=== PATIENT | female | born 1940 | race Caucasian/White ===

== ENCOUNTER → 2018-01-11 | Outpatient (CLI) | payer MEDICARE, SELFPAY ==
[~2018-01-11] MED LIST: ACET325 PO; ACET500 PO; ACETAMINOPHEN500 MG PO; ALBU3IS INH; ALBU90OI61 INH; ALLO300 PO; ALUM-MAG HYDRO360 ML PO; AMOCLA875 PO; ASPI81CH PO; ATEN50 PO; Aspir 8181 MG PO; BIMA.03OPS OU; BISA10S PR; BISA5EC PO; BUME2 PO; BUSP5 PO; Benadryl 50 mg50 MG PO; CALACE667G PO; CALC.25 PO; CEFP200 PO; CEPH500 PO; CHOL10002 PO; CIPR500 PO; CVS DISPOSABLE399 ML PR; CYAN500 PO; Cardizem CD 24240 MG PO; DIGO.25 PO; DILT120 PO; DILT120ER PO; DILTIAZEM 24HR240 MG PO; DOCU100 PO; ESCI10 PO; FAMO20 PO; FLUC150A PO; FLUSAL5005 INH; FLUT.05NI; FURO20 PO; FURO40 PO; Furosemide80 MG PO; GABA100 PO; GAVILAX17 GM PO; GLIP10 PO; GLIP5 PO; GUAI600T33 PO; HYDACE5 PO; Humalog100 UNIT/1; INSDET100 SC; INSLI100I; INSLIS75I SC; INSULANPEN SQ; IRON PO; K-TAB ER20 MEQ PO; Keflex500 MG PO; LATA.005SO BOTHEYES; LATA.005SO OD; LEVE500 PO; LEVO750 PO; LEVSOD50 PO; LISI5 PO; LORA.5 PO; LOSA25 PO; LOSA50 PO; LOSARTAN POTASS50 MG PO; LOVA40 PO; MAGNESIUM HYDROXIDE PO; METF500 PO; METF500C PO; METO10 PO; METO10SY PO; METO25 PO; METO25ER PO; METO50ER PO; METO5A PO; MINOIL PR; MIRALAX; MIRALAX17 GM PO; MIRT15 PO; MOM PO; MONT10T PO; MULVITMIND PO; Metoprolol Succ25 MG PO; Mucinex600 MG PO; NITR100 PO; Novolog Fl100 UNIT/1 SQ; OMEP20ER PO; OMEPRAZOLE MAGN20 MG PO; ONDA4 PO; Omeprazole20 M1 PO; POTCHL10ER PO; POTCHL20ER PO; PRED10 PO; PRED20; Prednisone20 MG PO; RENA-VITE PO; SACC250C PO; SENN187 PO; SPIR25 PO; SPIR50 PO; Synthroid50 MCG; TIMDOROPSO BOTHEYES; TIMO.25OPS OD; TIOT18 INH; TRAM50 PO; TRAZ50 PO; WARF1 PO; WARF2 PO; WARF3 PO; WARF4 PO; WARF5 PO; WARF6 PO; Xalatan2.5 ML BOTHEYES; Zantac150 MG PO; Zithromax250 MG PO; Zofran Odt8 MG SL
== END ==
LOC: LAB 13:03 → LAB SHORT 13:03
DX: R30.0 Dysuria (principal)
CPT/HCPCS: 87077; 87086; 87186

== ENCOUNTER 2018-11-05 17:21 | Observation (INO) | payer MEDICARE ==
[~2018-11-05] VITALS: Ht 165.1 cm; Wt 86.7 kg
[~2018-11-05 17:21] MED LIST changes: +Cosopt Plus10 ML BOTHEYES; -TIMDOROPSO BOTHEYES
[2018-11-05 18:01] LABS: Alanine Aminotransfer (ALT/SGP 13 U/L (12-78); Albumin, Blood 3.3 g/dL (3.4-5.0); Albumin/Globulin Ratio 0.8 (0.8-1.8); Alk Phos 79 U/L (50-136); Anion Gap 5 mmol/L (6-16); Aspartate Aminotrans (AST/SGOT 15 U/L (12-37); Bilirubin, Total 0.4 mg/dL (0.1-1.0); Blood Urea Nitrogen 10 mg/dL (8-24); Bun/Creatinine Ratio 13.2 (12.0-20.0); CO2, Blood 32 mmol/L (21-32); Chloride, Blood 102 mmol/L (98-108); Creatinine, Blood 0.76 mg/dL (0.40-1.00); Globulin, Blood 3.9 g/dL (2.2-4.0); Glomerular Filtration Rate >60 (60-); Glucose, Blood 223 mg/dL (70-99); Potassium, Blood 3.6 mmol/L (3.5-5.5); Sodium, Blood 139 mmol/L (136-145); Total Protein, Blood 7.2 g/dL (6.4-8.2); Troponin I <0.015 ng/mL (0.000-0.040)
[2018-11-05 18:05] LABS: BASOPHILS ABSOLUTE AUTO 0.03 K/mm3 (0.00-0.23); BASOPHILS PERCENT AUTO 1 % (0-2); EOSINOPHILS ABSOLUTE AUTO 0.12 K/mm3 (0.00-0.68); EOSINOPHILS PERCENT AUTO 2 % (0-6); Hematocrit 32.2 % (33.0-51.0); Hemoglobin 9.8 g/dL (11.5-16.0); IMMATURE GRAN ABSOLUTE AUTO 0.04 K/mm3 (0.00-0.10); IMMATURE GRAN PERCENT AUTO 1 % (0-1); LYMPHOCYTES ABSOLUTE AUTO 1.54 K/mm3 (0.84-5.20); LYMPHOCYTES PERCENT AUTO 26 % (21-46); MONOCYTES ABSOLUTE AUTO 0.42 K/mm3 (0.16-1.47); MONOCYTES PERCENT AUTO 7 % (4-13); Mean Corpuscular HGB 30.1 pg (26.0-34.0); Mean Corpuscular HGB Conc 30.4 g/dL (31.5-36.5); Mean Corpuscular Volume 99 fL (80-100); NEUTROPHILS ABSOLUTE AUTO 3.85 K/mm3 (1.96-9.15); NEUTROPHILS PERCENT AUTO 64 % (41-73); Platelet Count 245 K/mm3 (150-400); RDW Coefficient Variation 14.5 % (11.7-14.2); RDW Standard Deviation 52.1 fL (35.1-46.3); Red Blood Cell Count 3.26 M/mm3 (3.80-5.20)
[2018-11-05 20:36] LABS: International Normalized Ratio 2.03; Prothrombin Time Results 20.1 Sec (9.7-11.5)
--- NOTE | 2018-11-05 23:13 | NUR ---
PT ADMIT. PT WAS TRANSFERED TO THIS UNIT AT 2038. PT ADMIT WAS FOR SYNCOPE AND CHEST PAIN. PT DENIES CHEST PAIN AT THIS TIME BUT STATES THAT SHE FEELS TO WEAK TO ATTEMPT TO STAND AT ALL. PT STATED THAT SHE HAS RECENTLY LOST A VERY DEAR FRIEND AND HAS BEEN UNDER SEVERE STRESS AND GREAVING THE PAST FEW DAYS. TELE PLACED, AFIB W/PVCS IN THE 80'S PER ROOF SHINGLER. BP 138/63. NO EDEMA NOTED ON ASSESSMENT. L/S CLEAR T/O. PT HAS ORTHOPENA. BT PRESENT AND HYPERACITVE, ABD IS SOFT AND NONTENDER TO PALP. PT HAS CHRONIC HICKMAN DUE TO NEUROGENIC BLADDER/RETENTION, HICKMAN WAS CHANGED AND UA WILL BE SENT WHEN ABLE TO OBTAIN. PT HAS FREIND AT THE BEDSIDE, PT ORIENTED TO ROOM AND CALL LIGHT, CALL LIGHT IN REACH, BED IS LOCKED AND LOW, WILL CONTINUE TO MONITOR.
[2018-11-06 00:24] LABS: Source, Urine Voided
[2018-11-06 00:28] LABS: Bilirubin, Urine Neg (Neg); Blood, Urine 3+ (Neg); Glucose Qualitative, Urine Neg (Neg); Ketones, Urine Neg (Neg); Leukocyte Esterase, Urine 3+ (Neg); Nitrite, Urine Neg (Neg); Protein, Urine 2+ (Neg); Urobilinogen, Urine NORM (Normal)
[2018-11-06 00:31] LABS: Appearance, Urine Clear (Clear); Color, Urine Yellow (P-Yellow)
[2018-11-06 00:33] LABS: Bacteria Many /hpf; Red Blood Cells, Urine 0-2 /hpf (0-2); Squamous Epithelial Cells Mod /hpf (Few); White Blood Cells, Urine TNTC /hpf (0-5)
[2018-11-06 04:26] LABS: International Normalized Ratio 2.01; Prothrombin Time Results 19.9 Sec (9.7-11.5)
--- NOTE | 2018-11-06 05:34 | NUR ---
SHIFT SUMMARY. NO ACUTE CHANGES NOTED THIS SHIFT. PT DENIES ANY CHEST PAIN/PRESSURE, SOB OR N/V. PT'S VS HAVE BEEN STABLE T/O SHIFT. PT'S CHRONIC HICKMAN WAS CHANGED AND UA SENT (SEE LABS) UA IS POSITIVE, CULTURES PENDING. PT COMPLAINED OF SEVERE VAGINAL ITCHING, PROVIDER CALLED, ORDERS OBTAINED. PT STILL COMPLAINING OF SEVERE WEAKNESS. PT REQUIRES EXTENSIVE EDUCATION REGUARDING HICKMAN CATHETERS AND HOME CARE, DURING THE CATH CHANGE PT'S FRIEND AT THE BEDSIDE REQUESTED THAT THE PT'S LEG BAG FROM HOME NOT BE THROWN AWAY BUT RINSED OUT AND KEPT SO THE PT COULD USE IT AT HOME AFTER D/C. THIS RN THOROUGHLY EDUCATED PT AND PT'S FRIEND ABOUT THE IMPORTANCE OF KEEPING THE HICKMAN SYSTEM CLEAN POSSIBLE TO PREVENT CAUTI. UA WAS POSITIVE, WAITING ON CULTURES (SEE LABS). PT'S TROPONINS HAVE BEEN NEGATIVE T/O SHIFT, NO EKG CHANGES NOTED. CALL LIGHT IN REACH, BED IS LOCKED AND LOW, WILL CONTINUE TO MONITOR UNTIL REPORT IS GIVEN TO ONCOMING RN.
--- NOTE | 2018-11-06 09:15 | NUR ---
DEVICE INTERROGATION DONE PER ORDER. NORMAL FUNCTIONING SINGLE CHAMBER PACEMAKER. SDEQUATE BATTERY STATUS, STABLE LEAD IMPEDANCE. R WAVE 8.0mV. CAPTURE THRESHOLD 1.0v@.4ms.Classified Ad Clerk 14%. NO HIGH VENTRICULAR EPISODES NOTED. INFORMATION ON FRONT OF PATIENT RECORD.
--- NOTE | 2018-11-06 10:57 | NUR ---
Assumed Care Assumed care of pt at approx 0700. VSS. In no apparent sign of distress. ECHO being completed at bedside this AM. Pt denies any pain. A&Ox4. Repositions self. Calls appropriately. Denies any acute complaints at all except for some mild dizziness w/standing and weakness, which the pt states she feels is improving. HC staff called and will come to interrogate pacemaker once ECHO is complete. Pt currently resting in bed wtih call light within reach. Denies any further questions, complaints or requests at this time. Will continue to monitor.
--- NOTE | 2018-11-06 11:52 | NUR ---
Echocardiogram completed.
--- NOTE | 2018-11-06 18:35 | NUR ---
Shift Summary No acute changes since initial shift assessment. VSS. In no apparent sign of distress. Pt is A&Ox4. Denies any pain. Denies any acute complaints or events t/o the day. Pt did well working w/PT and OT today. Repositions self. Calls appropriately. Spoke with Dr. Kaufman today regarding pt metformin dose per pt request and was informed that we are holding metformin dose for potential procedure using contrast, but that procedure is not scheduled or planned at this time. No changes on tele today. No changes in mentation. Pt currently resting in bed with call light within reach. Denies any further questions, complaints or requests at this time. Will continue to monitor until report is given to blair ROBLEDO.
--- NOTE | 2018-11-06 23:18 | NUR ---
PM NOTE. ASSUMED CARE OF PT APROX 1900. PT IS A&Ox4 PLEASENT AND COOPERATIVE WITH CARE. PT DEINES CHEST PAIN/PRESSURE OR LIGHTHEADED DIZZINESS. TELE INTACT, AFIB W/OCCASIONAL PACER SPIKES W/PVCS. BP 99/51. NO EDEMA PRESENT. L/S CLEAR T/O PT ON 2 L NC PRN, THIS IS HER HOME DOSE WELL. BT PRESENT AND HYPERACTIVE, ABD IS SOFT AND NONTENDER TO PALP. CALL LIGHT IN REACH, BED LOCKED AND LOW, WILL CONITNUE TO MONITOR.
[2018-11-07 04:30] LABS: International Normalized Ratio 3.01; Prothrombin Time Results 29.1 Sec (9.7-11.5)
--- NOTE | 2018-11-07 06:07 | NUR ---
FIT SUMMARY. NO ACUTE CHANGES NOTED THIS SHIFT. PT DENIES ANY CHEST PAIN/PRESSURE, DIZZINESS/LIGHTHEADEDNESS. PT IS SCHEDULED TO HAVE A CARDIAC STRESS TEST TODAY, PT HAS BEEN NPO EXCEPT WATER SINCE MIDNIGHT. PT HAS BEEN VERY ANXIOUS ABOUT THIS STRESS TEST, CONCERNED THAT SHE WILL HAVE A HEARTATTACK DURING THIS PROCEDURE, THIS RN PROVIDED THERAPUTIC COMMUNICATION AND COMFORT ALONG WITH EDUCATION TO THE PT. PT HAS ONLY HAD 275MLS OUTPUT DRAINED FROM HICKMAN THIS SHIFT. PT'S LAST BP WAS 91/48, PT NOT SYMPTOMATIC. CALL LIGHT IN REACH, BED LOCKED AND LOW, WILL CONTINUE TO MONITOR UNTIL REPORT IS GIVEN TO ONCOMING RN.
--- NOTE | 2018-11-07 12:01 | NUR ---
PT DOWN TO NUC MED VIA WHEELCHAIR FOR STRESS TEST.
--- NOTE | 2018-11-07 17:48 | NUR ---
SHIFT SUMMARY PT MOSTLY SLEPT T/O SHIFT. ACTIVITY ENCOURAGED, HOWEVER PT STATES SHE IS "TRYING TO CATCH UP ON SLEEP". PT HAS GOTTEN UP TO CHAIR FOR MEALS AND HAS TOLERATED AMBULATING TO BATHROOM WELL WITH STANDBY ASSIST. VITAL SIGNS STABLE T/O SHIFT. PIV SL. PLAN FOR SECOND PORTION OF CARDIAC STRESS TEST TOMORROW. WILL CONTINUE TO MONITOR PT AND GIVE HANDOFF REPORT TO ONCOMING RN WHEN AVAILABLE.
[2018-11-08 04:12] LABS: International Normalized Ratio 3.5; Prothrombin Time Results 33.6 Sec (9.7-11.5)
--- NOTE | 2018-11-08 06:04 | NUR ---
SHIFT SUMMARY PT ALERT AND ORIENTED. VS STABLE. PT RESTED MOST OF SHIFT. CHRONIC HICKMAN PATENT AND DRAINING. NO CHANGES SINCE INITIAL ASSESSMENT. CALL LIGHT IN REACH. WILL REPORT TO ONCOMING RN.
--- NOTE | 2018-11-08 08:49 | NUR ---
NURSING PCU DAYSHIFT: Assumed care of pt at approx 0700. A/O, very pleasant and cooperative w/care. Denies any pain/discomfort this a.m. Skin is intact w/no breakdown noted. General weakness w/chronic neuropathy of LE's. Tele in place, NSR w/PVC's, BP stable, no noted edema, artificial valve and murmur auscultated, no c/o CP/pressure. L/S fairly cta t/o w/crackles present in LLL, denies dyspnea, O2 sat stable on RA, occ LANGUAGES AND LITERATURE INSTRUCTOR cough. Abd SNT, BT+, chronic FC in place. PIV x1, s/l. No s/s of acute distress at this time. Plan for second portion of stress test today, will hold beta phoebe. Seen by PMD, awaiting new d/o. Pt denies any current needs/questions. Currently OOB in chair watching TV, call light in reach, cont to monitor for any changes.
--- NOTE | 2018-11-08 18:07 | NUR ---
NURSING PCU DAYSHIFT SUMMARY: No significant changes noted t/o the shift. VS remained stable, cardiac and respiratory status unchanged. 2nd portion of stress test completed which pt tolerated well, no significant findings noted. Plan for discharge home tomorrow, pt verbalized understanding of plan of care, denies questions. Call light remains in reach, cont to monitor until rpt is given to NOC RN.
[2018-11-09 04:22] LABS: International Normalized Ratio 3.17; Prothrombin Time Results 30.6 Sec (9.7-11.5)
--- NOTE | 2018-11-09 06:24 | NUR ---
SHIFT SUMMARY ALERT AND ORIENTED. VS STABLE. PT RESTED MOST OF SHIFT. 02 SATS REMAINED ABOVE 92% ON RA. PT DENIES ANY CHEST PAIN OR DIZZINESS. PLAN TO DC TODAY. NO OTHER CHANGES SINCE INITIAL ASSESSMENT. CALL LIGHT IN REACH. WILL CONTINUE TO MONITOR AND REPORT TO ONCOMING RN.
== END 2018-11-09 12:45 | disposition home or self-care (01) ==
LOC: ER 17:21 → PCU 17:22 → ER 20:38 → PCU 20:44
PROVIDERS: Emergency Medicine; ADMIT Internal Medicine
DX: R07.9 Chest pain, unspecified (principal); R55 Syncope and collapse; I48.91 Unspecified atrial fibrillation; E11.9 Type 2 diabetes mellitus without complications; R30.0 Dysuria; I10 Essential (primary) hypertension; E03.9 Hypothyroidism, unspecified; G47.30 Sleep apnea, unspecified; Z79.01 Long term (current) use of anticoagulants; Z95.2 Presence of prosthetic heart valve; Z79.899 Other long term (current) drug therapy; Z88.5 Allergy status to narcotic agent
CPT/HCPCS: 36415; 71046; 78452; 80053; 81001; 82947; 84443; 84484; 85025; 85379; 85610; 87086; 93005; 93010; 93017; 93279; 93306; 96365; 96366; 97116; 97162; 97166; 97530; 97535; 99285-25; A9500; G0378; G8978; G8979; G8987; G8988; J0696; J0706; J2785

== ENCOUNTER 2018-11-21 02:53 | Day surgery (SDC) | payer MEDICARE, OTHER ==
--- NOTE | 2018-11-21 14:23 | NUR ---
12 FR. HICKMAN CATH PLACED PER PROTOCOL FOR VCUG PROCEDURE; TOLERATED WELL. CHERRY SORTER AT BEDSIDE AND CONTINUED CARE.
== END 2018-11-21 22:36 | disposition home or self-care (01) ==
LOC: ORD 02:53 → RAD 02:53 → LAB 02:53 → ORD 13:30 → RAD 14:00 → ORD 22:36
DX: N31.9 Neuromuscular dysfunction of bladder, unspecified (principal); Z79.01 Long term (current) use of anticoagulants; I48.0 Paroxysmal atrial fibrillation
CPT/HCPCS: 36416; 51600; 74455; 85610; Q9967

== ENCOUNTER 2018-12-22 15:16 | Emergency (ER) | payer MEDICARE, OTHER ==
[~2018-12-22] VITALS: Ht 165.1 cm; Wt 86.2 kg
[2018-12-22 15:56] LABS: BASOPHILS ABSOLUTE AUTO 0.04 K/mm3 (0.00-0.23); BASOPHILS PERCENT AUTO 1 % (0-2); EOSINOPHILS ABSOLUTE AUTO 0.12 K/mm3 (0.00-0.68); EOSINOPHILS PERCENT AUTO 2 % (0-6); Hematocrit 32.5 % (33.0-51.0); Hemoglobin 9.8 g/dL (11.5-16.0); IMMATURE GRAN ABSOLUTE AUTO 0.01 K/mm3 (0.00-0.10); IMMATURE GRAN PERCENT AUTO 0 % (0-1); LYMPHOCYTES PERCENT AUTO 26 % (21-46); MONOCYTES ABSOLUTE AUTO 0.42 K/mm3 (0.16-1.47); MONOCYTES PERCENT AUTO 7 % (4-13); Mean Corpuscular HGB 29.4 pg (26.0-34.0); Mean Corpuscular HGB Conc 30.2 g/dL (31.5-36.5); Mean Corpuscular Volume 98 fL (80-100); Mean Platelet Volume 10.3 fL (9.1-12.4); NEUTROPHILS ABSOLUTE AUTO 3.73 K/mm3 (1.96-9.15); NEUTROPHILS PERCENT AUTO 64 % (41-73); Platelet Count 240 K/mm3 (150-400); RDW Coefficient Variation 14.4 % (11.7-14.2); RDW Standard Deviation 51.4 fL (35.1-46.3); Red Blood Cell Count 3.33 M/mm3 (3.80-5.20); White Blood Cell Count 5.82 K/mm3 (4.00-11.30)
[2018-12-22 16:10] LABS: Alanine Aminotransfer (ALT/SGP 14 U/L (12-78); Albumin, Blood 3.4 g/dL (3.4-5.0); Albumin/Globulin Ratio 0.9 (0.8-1.8); Alk Phos 86 U/L (50-136); Anion Gap 4 mmol/L (6-16); Aspartate Aminotrans (AST/SGOT 13 U/L (12-37); Bilirubin, Total 0.6 mg/dL (0.1-1.0); Blood Urea Nitrogen 16 mg/dL (8-24); Bun/Creatinine Ratio 19.9 (12.0-20.0); CO2, Blood 28 mmol/L (21-32); Calcium, Blood 8.7 mg/dL (8.5-10.1); Chloride, Blood 105 mmol/L (98-108); Globulin, Blood 3.7 g/dL (2.2-4.0); Glomerular Filtration Rate >60 (60-); Glucose, Blood 231 mg/dL (70-99); Potassium, Blood 4.1 mmol/L (3.5-5.5); Sodium, Blood 137 mmol/L (136-145); Total Protein, Blood 7.1 g/dL (6.4-8.2)
[2018-12-22 16:15] LABS: International Normalized Ratio 1.92; Prothrombin Time Results 19.2 Sec (9.7-11.5)
[2018-12-22 16:41] LABS: Base Excess Venous 1.7 mmol/L; Bicarbonate Venous 25.6 mmol/L (24.0-30.0); PCO2 Venous 50.7 mmHg (38-42); PO2 Venous 161 mmHg (38-42); pH Blood Venous 7.34 (7.34-7.37)
[2018-12-22 17:30] LABS: Source, Urine Clean Catch
[2018-12-22 17:37] LABS: Appearance, Urine Cloudy (Clear); Bilirubin, Urine Neg (Neg); Blood, Urine 5+ (Neg); Color, Urine Yellow (P-Yellow); Glucose Qualitative, Urine 1+ (Neg); Ketones, Urine Neg (Neg); Leukocyte Esterase, Urine 3+ (Neg); Nitrite, Urine Neg (Neg); Protein, Urine 2+ (Neg); Urobilinogen, Urine NORM (Normal)
[2018-12-22 17:42] LABS: White Blood Cells, Urine TNTC /hpf (0-5)
[2018-12-22 17:44] LABS: Squamous Epithelial Cells Not Seen /hpf (Few)
[2018-12-22 17:45] LABS: Bacteria Rare /hpf; Yeast/Fungi Urine Few /hpf
[2018-12-22] MEDS ORDERED: CEPH500 PO (17:56)
== END 2018-12-22 18:05 | disposition home or self-care (01) ==
LOC: ER 15:16
PROVIDERS: Physician Assistant
DX: N39.0 Urinary tract infection, site not specified (principal); E11.9 Type 2 diabetes mellitus without complications; I10 Essential (primary) hypertension; I48.91 Unspecified atrial fibrillation; Z79.899 Other long term (current) drug therapy; Z79.4 Long term (current) use of insulin; Z79.01 Long term (current) use of anticoagulants
CPT/HCPCS: 36415; 51701; 80053; 81001; 82010; 82803; 82947; 85025; 85610; 87086; 93005; 93010; 99285-25

== ENCOUNTER → 2019-04-27 | Outpatient (CLI) | payer MEDICARE, SELFPAY ==
[~2019-04-27] MED LIST changes: -BUME2 PO; +Bumetanide2 MG PO; +Ferrous Glucon324 M1 PO; +Flonase 0.05% N16 GM; +Humalog100 UNIT/1 SC; +INSULANPEN SC; -METF500C PO; -Metoprolol Succ25 MG PO; +Metoprolol Tart25 MG PO; +Pyridium100 MG PO; -WARF2 PO
== END | disposition home or self-care (01) ==
LOC: LAB SHORT 09:54 → LAB UCHC 09:54
DX: R30.0 Dysuria (principal)
CPT/HCPCS: 87077; 87086; 87186

== ENCOUNTER → 2019-05-14 | Outpatient (CLI) | payer MEDICARE, SELFPAY | END | disposition home or self-care (01) | LOC: LAB UCHC 17:39 → LAB SHORT 17:39 | DX: N76.0 Acute vaginitis (principal) | CPT/HCPCS: 87070; 87077; 87186; 87205 ==

== ENCOUNTER → 2019-06-23 | Outpatient (CLI) | payer MEDICARE, OTHER ==
[2019-06-26 05:38] LABS: Stool Occult Bld Immuno 1 Negative (NEGATIVE); Stool Occult Bld Immuno 2 Negative (NEGATIVE)
== END | disposition home or self-care (01) ==
LOC: LAB SHORT 20:30 → LAB 20:30
PROVIDERS: Internal Medicine Gastroenterology
DX: D64.9 Anemia, unspecified (principal)
CPT/HCPCS: 82274

== ENCOUNTER → 2019-07-04 | Outpatient (CLI) | payer MEDICARE, OTHER | LOC: LAB 14:21 → LAB SHORT 14:21 | DX: R32 Unspecified urinary incontinence (principal) | CPT/HCPCS: 87077; 87086; 87186 ==

== ENCOUNTER 2019-08-10 17:11 | Emergency (ER) | payer MEDICARE, OTHER ==
[~2019-08-10] VITALS: Ht 165.1 cm; Wt 82.5 kg
[~2019-08-10 17:11] MED LIST changes: -Aspir 8181 MG PO; -Bumetanide2 MG PO; -Cosopt Plus10 ML BOTHEYES; -Ferrous Glucon324 M1 PO; -Flonase 0.05% N16 GM; -GABA100 PO; -Humalog100 UNIT/1 SC; -INSULANPEN SC; -K-TAB ER20 MEQ PO; -LOSARTAN POTASS50 MG PO; -Metoprolol Tart25 MG PO; -Pyridium100 MG PO; -Xalatan2.5 ML BOTHEYES
[2019-08-10 18:28] LABS: Source, Urine Clean Catch
[2019-08-10 18:32] LABS: Bilirubin, Urine Neg (Neg); Blood, Urine 5+ (Neg); Glucose Qualitative, Urine 2+ (Neg); Ketones, Urine Neg (Neg); Leukocyte Esterase, Urine 3+ (Neg); Nitrite, Urine Pos (Neg); Protein, Urine 3+ (Neg); Specific Gravity, Urine 1.015 (1.003-1.022); Urobilinogen, Urine NORM (Normal)
[2019-08-10 18:44] LABS: Appearance, Urine Cloudy (Clear); Color, Urine Yellow (P-Yellow)
[2019-08-10 18:47] LABS: Red Blood Cells, Urine 25-50 /hpf (0-2); White Blood Cells, Urine TNTC /hpf (0-5)
[2019-08-10 18:48] LABS: Bacteria Many /hpf; Squamous Epithelial Cells Mod /hpf (Few)
[2019-08-10 19:00] LABS: BASOPHILS ABSOLUTE AUTO 0.03 K/mm3 (0.00-0.23); BASOPHILS PERCENT AUTO 0 % (0-2); EOSINOPHILS ABSOLUTE AUTO 0.08 K/mm3 (0.00-0.68); EOSINOPHILS PERCENT AUTO 1 % (0-6); Hematocrit 33.5 % (33.0-51.0); Hemoglobin 10.5 g/dL (11.5-16.0); IMMATURE GRAN ABSOLUTE AUTO 0.02 K/mm3 (0.00-0.10); IMMATURE GRAN PERCENT AUTO 0 % (0-1); LYMPHOCYTES ABSOLUTE AUTO 1.41 K/mm3 (0.84-5.20); LYMPHOCYTES PERCENT AUTO 19 % (21-46); MONOCYTES ABSOLUTE AUTO 0.72 K/mm3 (0.16-1.47); MONOCYTES PERCENT AUTO 10 % (4-13); Mean Corpuscular HGB 28.8 pg (26.0-34.0); Mean Corpuscular HGB Conc 31.3 g/dL (31.5-36.5); Mean Corpuscular Volume 92 fL (80-100); Mean Platelet Volume 10.3 fL (9.1-12.4); NEUTROPHILS ABSOLUTE AUTO 5.28 K/mm3 (1.96-9.15); NEUTROPHILS PERCENT AUTO 70 % (41-73); Platelet Count 291 K/mm3 (150-400); RDW Standard Deviation 47.7 fL (35.1-46.3); Red Blood Cell Count 3.64 M/mm3 (3.80-5.20); White Blood Cell Count 7.54 K/mm3 (4.00-11.30)
[2019-08-10 19:32] LABS: Albumin, Blood 3.5 g/dL (3.4-5.0); Albumin/Globulin Ratio 0.9 (0.8-1.8); Bilirubin, Total 0.5 mg/dL (0.1-1.0); Bun/Creatinine Ratio 22.1 (12.0-20.0); Calcium, Blood 8.7 mg/dL (8.5-10.1); Creatinine, Blood 1.04 mg/dL (0.40-1.00); Globulin, Blood 3.9 g/dL (2.2-4.0); Potassium, Blood 3.1 mmol/L (3.5-5.5); Total Protein, Blood 7.4 g/dL (6.4-8.2)
[2019-08-10] MEDS ORDERED: Pyridium100 MG PO (21:51)
[2019-08-10] MEDS ORDERED: CEFP200 PO (21:51)
== END 2019-08-10 22:20 | disposition home or self-care (01) ==
LOC: ER 17:11
PROVIDERS: Physician Assistant
DX: N30.90 Cystitis, unspecified without hematuria (principal); K80.20 Calculus of gallbladder without cholecystitis without obstruction; N20.0 Calculus of kidney; E11.9 Type 2 diabetes mellitus without complications; I10 Essential (primary) hypertension; E03.9 Hypothyroidism, unspecified; G47.30 Sleep apnea, unspecified; Z88.5 Allergy status to narcotic agent; Z91.018 Allergy to other foods; Z79.899 Other long term (current) drug therapy; Z79.4 Long term (current) use of insulin; Z79.01 Long term (current) use of anticoagulants; Z79.82 Long term (current) use of aspirin
CPT/HCPCS: 36415; 74176; 80053; 81001; 85025; 87077; 87086; 87186; 99284-25

== ENCOUNTER → 2019-08-10 | Outpatient (CLI) | payer MEDICARE, OTHER | END | disposition home or self-care (01) | LOC: LAB SHORT 10:00 → LAB 10:00 | DX: N39.0 Urinary tract infection, site not specified (principal) | CPT/HCPCS: 87086 ==

== ENCOUNTER → 2019-08-17 | Outpatient (CLI) | payer MEDICARE, OTHER ==
[~2019-08-17] MED LIST changes: +Aspir 8181 MG PO; +Bumetanide2 MG PO; +Cosopt Plus10 ML BOTHEYES; +Ferrous Glucon324 M1 PO; +Flonase 0.05% N16 GM; +GABA100 PO; +Humalog100 UNIT/1 SC; +INSULANPEN SC; +K-TAB ER20 MEQ PO; +LOSARTAN POTASS50 MG PO; +Metoprolol Tart25 MG PO; +Pyridium100 MG PO; +Xalatan2.5 ML BOTHEYES
== END | disposition home or self-care (01) ==
LOC: LAB 16:40 → LAB SHORT 16:40
DX: M10.9 Gout, unspecified (principal)
CPT/HCPCS: 84550

== ENCOUNTER 2019-08-27 14:06 | Inpatient (IN) | payer MEDICARE, OTHER ==
[~2019-08-27] VITALS: Ht 165.1 cm; Wt 67.7 kg
[~2019-08-27 14:06] MED LIST changes: -Aspir 8181 MG PO; -Bumetanide2 MG PO; -Cosopt Plus10 ML BOTHEYES; -Ferrous Glucon324 M1 PO; -Flonase 0.05% N16 GM; -GABA100 PO; -Humalog100 UNIT/1 SC; -INSULANPEN SC; -K-TAB ER20 MEQ PO; -LOSARTAN POTASS50 MG PO; -Metoprolol Tart25 MG PO; -Xalatan2.5 ML BOTHEYES
[2019-08-27 18:20] LABS: BASOPHILS ABSOLUTE AUTO 0.05 K/mm3 (0.00-0.23); BASOPHILS PERCENT AUTO 1 % (0-2); EOSINOPHILS ABSOLUTE AUTO 0.07 K/mm3 (0.00-0.68); EOSINOPHILS PERCENT AUTO 1 % (0-6); Hematocrit 34.2 % (33.0-51.0); Hemoglobin 10.6 g/dL (11.5-16.0); IMMATURE GRAN ABSOLUTE AUTO 0.02 K/mm3 (0.00-0.10); IMMATURE GRAN PERCENT AUTO 0 % (0-1); LYMPHOCYTES ABSOLUTE AUTO 1.88 K/mm3 (0.84-5.20); LYMPHOCYTES PERCENT AUTO 20 % (21-46); MONOCYTES ABSOLUTE AUTO 0.63 K/mm3 (0.16-1.47); MONOCYTES PERCENT AUTO 7 % (4-13); Mean Corpuscular HGB 29.5 pg (26.0-34.0); Mean Corpuscular Volume 95 fL (80-100); NEUTROPHILS ABSOLUTE AUTO 6.75 K/mm3 (1.96-9.15); NEUTROPHILS PERCENT AUTO 72 % (41-73); Platelet Count 264 K/mm3 (150-400); RDW Standard Deviation 49.5 fL (35.1-46.3); Red Blood Cell Count 3.59 M/mm3 (3.80-5.20)
[2019-08-27] MEDS ORDERED: METF500 PO (18:33)
[2019-08-27] MEDS ORDERED: GABA100 PO (18:33)
[2019-08-27] MEDS ORDERED: ALLO300 PO (18:33)
[2019-08-27] MEDS ORDERED: LOSARTAN POTASS50 MG PO (18:33)
[2019-08-27] MEDS ORDERED: METO25 PO (18:34)
[2019-08-27] MEDS ORDERED: Aspir 8181 MG PO (18:35)
[2019-08-27] MEDS ORDERED: Ferrous Glucon324 M1 PO (18:36)
[2019-08-27] MEDS ORDERED: Xalatan2.5 ML BOTHEYES (18:37)
[2019-08-27] MEDS ORDERED: LOVA40 PO (18:37)
[2019-08-27] MEDS ORDERED: LEVSOD50 PO (18:38)
[2019-08-27] MEDS ORDERED: K-TAB ER20 MEQ PO (18:39)
[2019-08-27] MEDS ORDERED: Bumetanide2 MG PO (18:39)
[2019-08-27 18:44] LABS: Prothrombin Time Results 41.2 Sec (9.7-11.5)
[2019-08-27 18:54] LABS: International Normalized Ratio 4.45
[2019-08-27] MEDS ORDERED: Humalog100 UNIT/1 SC (18:58)
[2019-08-27] MEDS ORDERED: INSULANPEN SC (18:58)
[2019-08-27] MEDS ORDERED: Flonase 0.05% N16 GM (18:59)
[2019-08-27] MEDS ORDERED: WARF3 PO (19:03)
[2019-08-27] MEDS ORDERED: Cosopt Plus10 ML BOTHEYES (19:10)
[2019-08-27 19:17] LABS: Albumin, Blood 3.7 g/dL (3.4-5.0); Albumin/Globulin Ratio 0.9 (0.8-1.8); Bilirubin, Total 0.6 mg/dL (0.1-1.0); Bun/Creatinine Ratio 14.6 (12.0-20.0); Calcium, Blood 9.3 mg/dL (8.5-10.1); Creatinine, Blood 1.51 mg/dL (0.40-1.00); Total Protein, Blood 7.7 g/dL (6.4-8.2)
--- NOTE | 2019-08-27 19:37 | NUR ---
Transfer report from Lina ROBLEDO in ER on PT being admitted with lt LE ACROCYANOSIS. Pt is type 2 diabetic and uses oral and sq insulin. She is on coumadin and had critical INR 4.45. Full code await admission
[2019-08-27] MEDS ORDERED: Metoprolol Tart25 MG PO (20:41)
[2019-08-27] MEDS ORDERED: SPIR25 PO (20:42)
[2019-08-27] MEDS ORDERED: FLUC150A PO (20:43)
[2019-08-27] MEDS ORDERED: ESCI10 PO (20:43)
[2019-08-27] MEDS ORDERED: LORA.5 PO (20:44)
[2019-08-28 05:24] LABS: Bun/Creatinine Ratio 15.9 (12.0-20.0); Calcium, Blood 8.9 mg/dL (8.5-10.1); Creatinine, Blood 1.45 mg/dL (0.40-1.00); Potassium, Blood 3.9 mmol/L (3.5-5.5)
--- NOTE | 2019-08-28 05:43 | NUR ---
79 year old Female with hx of pacemaker and mitral valve replacement since 2010 on coumadin 3 mg po Q PM. Last dose night prior to admission. INR was critically high 4.45 on ER lab. LT foot edema pain and ecchymotic discoloration, has strong pulse and foot warm with fair cap refill. PT is poor historian, lives alone. No relatives locally. Had friend come by to visit and bring small dog for visit. PT with hx of rabies exposure 8 years ago with propylaxis rabies vaccine at that time. SW referral to assess support system. PT has difficulty affording medications. Has ongoing UTIS and dx neurogenic bladder. PT has IR consult DR Segundo pending. NPO since midnight for possible intervention. No s/sx of active bleeding. Denies fall or injury to lt foot. declines narcotics or tylenol for lt foot pain.
--- NOTE | 2019-08-28 06:40 | NUR ---
pt wears 2 l nc oxygen at HS for CHF. Oxygen protocol ordered. room air sat while sleeping 86 % greater than 90% while awake
--- NOTE | 2019-08-28 10:15 | NUR ---
echocardiogram completed
[2019-08-28 11:16] LABS: International Normalized Ratio 3.92; Prothrombin Time Results 36.7 Sec (9.7-11.5)
--- NOTE | 2019-08-28 17:59 | NUR ---
PT ALERT AND ORIENTED DURING THIS SHIFT. PT NPO DURING THIS SHIFT IN PREPARATION FOR REVASCULARIZATION PROCEDURE. PT SEEN BY DR HERRERA THIS AFTERNOON AND SCHEDULED FOR PROCEDURE. PT IN ROOM AWAITING PROCEDURE. PT HAS HAD A VISITOR IN THE ROOM THIS AFTERNOON. PTS LEFT FOOT VERY TENDER TO TOUCH. PT CURRENTLY RESTING IN ROOM. CALL LIGHT IN REACH. WILL CONTINUE TO MONITOR.
--- NOTE | 2019-08-28 18:05 | NUR ---
advance directive information given
[2019-08-28 18:29] LABS: International Normalized Ratio 3.21
[2019-08-28 18:51] LABS: Prothrombin Time Results 30.6 Sec (9.7-11.5)
--- NOTE | 2019-08-28 20:27 | NUR ---
DR Lee in to see PT and said she will be put on phlebotomy lab assistant schedule for 0700. NS at 100 ml HR. ADA diet and NPO at midnight. INR is still elevated at 3.12 recheck lab in AM prior to scheduled procedure. Notify hospitalist of scheduled procedure time. Echo done 65% ER pacemaker with afib underlying vent paced. Will notify Hospitalist of plan of care. Lt foot continues warm dusky toes. Ecchymotic with dried scab present, with strong pulse present.
[2019-08-29 05:24] LABS: International Normalized Ratio 2.72
[2019-08-29 05:33] LABS: Prothrombin Time Results 26.3 Sec (9.7-11.5)
--- NOTE | 2019-08-29 06:04 | NUR ---
pt has cath intervention to lt le planned this AM at [address] Segundo plan to attempt to revascularize lt le. PT is NPO at midnight for procedure. Friend in and supportive. Oxygen 2 l as per HS routine. Medicated x 1 with tyleno 650 mg with helpful effect. Chronic UTI foul smelling urine. incontinet and voids. Incontinet of bowel also and used bsc . Pleasant.
--- NOTE | 2019-08-29 06:51 | NUR ---
transfer report to [place] RN and PT sent to [facility]. Alert orients INR down to 2.72.
[2019-08-29 11:35] LABS: International Normalized Ratio 1.86
[2019-08-29 11:41] LABS: Prothrombin Time Results 18.6 Sec (9.7-11.5)
--- NOTE | 2019-08-29 14:39 | NUR ---
PT TO ROOM AT 1350. RIGHT GROIN SITE WITH CLOSURE DEVICE, SCANT AMOUNT OF BLEEDING PRESENT WHEN TRANSFERED TO ROOM. NO S/SX HEMATOMA, BRUISING OR BLEEDING. PT DENIES NUMB/TING AND PAIN TO LEFT ROOM. PULSE PRESENT STRONG IN LEFT FOOT, CAP REFIL 2 SECONDS. NO CHANGES TO SITE SINCE TRANSFER TO ROOM. PT RESPONDS TO VERBAL STIMULI, ORIENTED x3. PT DENIES ALL PAIN. DENIES SOB, ON RA. PT STATES SHE WEARS 2L O2 VIA NC WHILE SLEEPING. PT LYING FLAT, EDUCATED ON NEED TO REMAIN FLAT. WILL CONTINUE TO MONITOR.
--- NOTE | 2019-08-29 20:06 | NUR ---
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 RIGHT GROIN ACCESS. SMALL AMOUNT OF RED OOZING FROM SITE, INCREASED TO APPROX SIZE OF QUARTER. THE SITE IN SOFT, NONTENDER; NO S/SX HEMATOMA, BRUISING OR BLEEDING. PT REPORTS LEFT LEG TENDER TO TOUCH. PULSE STRONG TO BLE, CAP REFILL 2SECONDS. PT A&Ox4, CALM AND COOPERATIVE WITH CARE. PT RESTING IN BED DURING SHIFT, REMAINED FLAT FOR MINIMUM TAYLOR HOURS POST PROCEDURES, CURRENTLY SITTING AT 45 DEGREE ANGLE IN BED. PT DENEIES SOB, ON RA, >90%, BREATHING EVEN AND UNLABORED. PT REPORTS WEARING 2L O2 VIA NC AT HOME FOR SLEEPING. PT DENIES [place], HAS GOOD APPETITE. VSS. NO OTHER ACUTE CHANGES NOTED DURING SHIFT. REPORT GIVEN TO ONCOMING RN.
--- NOTE | 2019-08-30 05:30 | NUR ---
SHIFT SUMMARY PT SLEEPING IN ROOM COMFORTABLY AT THIS TIME. NO ACUTE CHANGES IN STATUS T/O SHIFT. PT SLEPT WELL AND USED CALL LIGHT APPROPRIATELY. PT INCONTINENT OF URINE AND ATTENDS IN PLACE, PT SOILED ATTENDS ONCE AND WAS CHANGED, AND LINENE CHANGED WELL. RESP EVEN UNLABORED ON 2L NC W/ SATS >92%. PT REPORTS EARS 2L NC AT NOC DURING SLEEP. PT DENIED PAIN T/O NIGHT. L FOOT NOTED TO BE WARM TO TOUCH AND PULSE STRONG. SOME BRUISING STILL NOTED TO TOES AND TOP OF FOOT, PT PT REPORTS NO PAIN AT THIS TIME. PT DENIED CP AND SOB T/O NIGHT. CALL LIGHT IN REACH.
--- NOTE | 2019-08-30 08:00 | NUR ---
PT RESTING IN BED. IN FOR REVASCULARIZATION OF L FOOT. 149/71, P 67, PACED A FIB. 2L NC SATTING AT 100%. PT DOES SOUND SLIGHLTY WHEEZY ON INSPIRATION. BOWEL TONES PRESENT, LAST BM 08/29/19. L FOOT IS SWOLLEN AND BRUISED. VERY PAINFUL TO THE TOUCH. HOWEVER IT IS PINK AND WARM. PT HAS 20G IN RFA INFUSING WITH NS 100MLS/HR. AC/HS BLOOD SUGARS. NO ACUTE CHANGES AT THIS TIME.
[2019-08-30 09:02] LABS: Hematocrit 30.7 % (33.0-51.0); Hemoglobin 9.2 g/dL (11.5-16.0); Mean Corpuscular HGB 29.3 pg (26.0-34.0); Mean Platelet Volume 10.5 fL (9.1-12.4); Platelet Count 164 K/mm3 (150-400); RDW Coefficient Variation 13.7 % (11.7-14.2); RDW Standard Deviation 49.4 fL (35.1-46.3); Red Blood Cell Count 3.14 M/mm3 (3.80-5.20); White Blood Cell Count 5.35 K/mm3 (4.00-11.30)
[2019-08-30 09:06] LABS: Mean Corpuscular Volume 98 fL (80-100)
[2019-08-30 09:15] LABS: Albumin, Blood 3.3 g/dL (3.4-5.0); Anion Gap 3 mmol/L (6-16); Blood Urea Nitrogen 20 mg/dL (8-24); Bun/Creatinine Ratio 21.7 (12.0-20.0); CO2, Blood 30 mmol/L (21-32); Calcium, Blood 8.8 mg/dL (8.5-10.1); Chloride, Blood 105 mmol/L (98-108); Creatinine, Blood 0.92 mg/dL (0.40-1.00); Glomerular Filtration Rate >60 (60-); Glucose, Blood 140 mg/dL (70-99); Phosphorus, Blood 3.1 mg/dL (2.5-4.9); Potassium, Blood 3.8 mmol/L (3.5-5.5); Sodium, Blood 138 mmol/L (136-145)
[2019-08-30 09:20] LABS: International Normalized Ratio 1.48; Prothrombin Time Results 15.1 Sec (9.7-11.5)
--- NOTE | 2019-08-30 13:01 | NUR ---
PT UP TO CHAIR FOR LUNCH. OCCUPATIONAL CURRENTLY WITH PT. L FOOT REMAINS SWOLLEN, BRUISED, AND PAINFUL. REMAINS PINK AND WARM TO THE TOUCH. NO ACUTE CHANGES AT THIS TIME. WILL CONTINUE TO MONITOR
--- NOTE | 2019-08-30 13:34 | NUR ---
R GROIN INSERTION SITE SOFT WITH SMALL AMOUNT OF RED DRAINAGE. UNCHANGED SINCE ASSUMPTION OF CARE.
--- NOTE | 2019-08-30 19:18 | NUR ---
SHIFT SUMMARY PT A TRANSFER FROM [facility] THIS SHIFT. BENADRYL CREAM ORDERED FOR ITCHING. NO FURTHER COMPLAINTS SINCE TRANSFER. PT SITTING IN CHAIR, VISITING WITH FRIEND. REPORT GIVEN TO MERLE ROBLEDO. CALL LIGHT IN REACH.
--- NOTE | 2019-08-31 03:59 | NUR ---
SHIFT SUMMARY PT DX W/ACUTE ON CHRONIC PANCREATITIS. LIPASE 1256, WBC'S 18.28. PLAN IS TO ADVANCE DIET TOLERATED, CONTROL PAIN, WATCH LAB VALUES FOR IMPROVEMENT IN PERTINENT LABS. I DID MEDICATE THIS PT FOR PAIN TWICE DURING SHIFT SO FAR, SEE EMAR. INFORMED HOSPITALIST THAT HOME MEDICATION, MICARDIS 80 MG, WAS NOT AVAILABLE ON THE EMAR. HOSPITALIST STATED THAT SINCE BP'S WERE LOW/NORMAL THIS SHIFT, WE WOULD HOLD ADDING THAT BACK TO THE EMAR AND REPORT TO THE ONCOMING SHIFT. I DID NOTICE THAT THE PT TAKES 5 MG OF ORAL DISSOLVING MELATONIN AT HOME, BUT THE EMAR SHOWS IT 3 MG. WILL REPORT TO THE ONCOMING NURSE.
--- NOTE | 2019-08-31 04:14 | NUR ---
SHIFT SUMMARY PT ADMITTED FOR ACROCYANOSIS, LEFT FOOT REVASCULARIZED YESTERDAY BY DR HERRERA. PLAN IS FOR DC IF PT IMPROVING. PT HAS HX OF AFIB, ON COUMADIN. PT IS ITCHING ALL OVER HER BODY, THE BENEDRYL CREAM IS INEFFECTIVE. WILL ASK FOR ORAL BENEDRYL IF I GET OPPORTUNITY. METOPROLOL HELD LAST EVENING DUE TO 93/47 BP AND 61 BPM HR. NO PAIN MEDICATION GIVEN THIS SHIFT.
[2019-08-31 04:52] LABS: Hematocrit 27.1 % (33.0-51.0); Hemoglobin 8.2 g/dL (11.5-16.0); Mean Corpuscular HGB Conc 30.3 g/dL (31.5-36.5); Mean Corpuscular Volume 96 fL (80-100); Mean Platelet Volume 10.4 fL (9.1-12.4); Platelet Count 144 K/mm3 (150-400); RDW Coefficient Variation 13.8 % (11.7-14.2); RDW Standard Deviation 48.5 fL (35.1-46.3); Red Blood Cell Count 2.83 M/mm3 (3.80-5.20); White Blood Cell Count 4.55 K/mm3 (4.00-11.30)
[2019-08-31 05:06] LABS: International Normalized Ratio 1.42; Prothrombin Time Results 14.6 Sec (9.7-11.5)
--- NOTE | 2019-08-31 05:24 | NUR ---
PT LABS NOTED HGB HAS DOWNTRENDED, FROM 10.6 ON ADMIT, TO 8.2 THIS MORNING. HCT HAS ALSO DOWNTRENDED, FROM 34.2 ON ADMIT, TO 27.1 THIS MORNING. WILL PASS THIS INFO ON TO DAY NURSE.
--- NOTE | 2019-08-31 16:19 | NUR ---
SHIFT SUMMARY PT AWAKE DURING SHIFT REPORT, RESTING QUIETLY IN BED WATCHING TV. PT THEN UP TO EOB FOR BREAKFAST AND THEN A CHAIR FOR THE REMAINDER OF THE DAY TO PRESENT. DR AWAD IN TO SEE PT THIS AM. PT TAKING COUMADIN FOR A-FIB AND MECH VALVE REPLACEMENT. INR IS SUBTHERAPEUTIC. HEPARIN DRIP STARTED AND HEPARIN BOLUS GIVEN, WELL AN INCREASE IN COUMADIN FOR TODAY. PT TO GO HOME WHEN INR THERAPEUTIC. PT C/O PAIN TO TOUCH, TO L FOOT THIS AM. SLIGHT SWELLING AND BRUISING NOTED. L FOOT SWELLING INCREASED THRU OUT THE DAY PT HAD LEGS AND FEET DEPENDENT WHILE UP IN CHAIR ALL DAY. PER SHIFT REPORT, PT HAD REVASCULARIZATION DONE TO [facility] ON TUESDAY. PT REPORTING PAIN FROM PROCEDURE, HOWEVER DR AWAD REPORTED L FOOT PAIN FROM TRAUMA OR INJURY CAUSING BRUISING. ULTRAM 25MG PO GIVEN IN AM; PT REPORTED IT HELPFUL. PT LATER C/O VALDES; MEDICATED WITH TYLENOL. PLEASANT AND CO-OP. DENIES FURTHER NEEDS. CALL LT IN REACH.
[2019-09-01 04:54] LABS: Hematocrit 28.1 % (33.0-51.0); Hemoglobin 8.7 g/dL (11.5-16.0); Mean Corpuscular HGB 29.1 pg (26.0-34.0); Mean Corpuscular Volume 94 fL (80-100); Mean Platelet Volume 10.8 fL (9.1-12.4); Platelet Count 154 K/mm3 (150-400); RDW Coefficient Variation 13.8 % (11.7-14.2); RDW Standard Deviation 47.2 fL (35.1-46.3); Red Blood Cell Count 2.99 M/mm3 (3.80-5.20)
[2019-09-01 05:15] LABS: International Normalized Ratio 1.69; Prothrombin Time Results 17.1 Sec (9.7-11.5)
[2019-09-01 05:19] LABS: Albumin, Blood 2.9 g/dL (3.4-5.0); Anion Gap 3 mmol/L (6-16); Blood Urea Nitrogen 25 mg/dL (8-24); CO2, Blood 30 mmol/L (21-32); Calcium, Blood 8.9 mg/dL (8.5-10.1); Chloride, Blood 105 mmol/L (98-108); Creatinine, Blood 1.04 mg/dL (0.40-1.00); Glomerular Filtration Rate 54 (60-); Glucose, Blood 131 mg/dL (70-99); Phosphorus, Blood 3.6 mg/dL (2.5-4.9); Potassium, Blood 4.1 mmol/L (3.5-5.5); Sodium, Blood 138 mmol/L (136-145)
--- NOTE | 2019-09-01 06:00 | NUR ---
COMMUNITY ARTIST SUMMARY SLEPT WELL AFTER GETTING RELIEF FROM PRE BEDTIME HEADACHE WITH TRAMADOL. PATIENT REMAINS ON HEPARIN GTT. THIS AM PTT 57.4, INR 1.69. PHARMACY INFORMED OF NEW LAB RESULTS.
--- NOTE | 2019-09-01 17:19 | NUR ---
Shift Summary A/Ox3. Pleasant and cooperative with care. Up in chair for meals, able to make needs known. L/S fine crackles t/o. C/o L foot pain 05/16, medicated per EMAR with good effect. 1P c FWW with each transfers. No other acute changes this shift.
--- NOTE | 2019-09-02 01:56 | NUR ---
Had visitor last PM, visit went well. Heparin drip continuesat 16u/kg - 21.8 ml/hr as per MD orders. Lab draw continued it as such - see labs documentation. Alert and oriented with some disorientation noted with conversations at times. Was complaining of BLE discomfort while up in chair at bedside, but after assisted to bed and legs elevated, no further complaints voiced. Resting quietly at this time. Call light in reach.
[2019-09-02 04:37] LABS: BASOPHILS ABSOLUTE AUTO 0.03 K/mm3 (0.00-0.23); BASOPHILS PERCENT AUTO 1 % (0-2); EOSINOPHILS ABSOLUTE AUTO 0.14 K/mm3 (0.00-0.68); EOSINOPHILS PERCENT AUTO 3 % (0-6); Hematocrit 27.9 % (33.0-51.0); Hemoglobin 8.5 g/dL (11.5-16.0); IMMATURE GRAN ABSOLUTE AUTO 0.01 K/mm3 (0.00-0.10); IMMATURE GRAN PERCENT AUTO 0 % (0-1); LYMPHOCYTES ABSOLUTE AUTO 1.38 K/mm3 (0.84-5.20); LYMPHOCYTES PERCENT AUTO 31 % (21-46); MONOCYTES ABSOLUTE AUTO 0.45 K/mm3 (0.16-1.47); MONOCYTES PERCENT AUTO 10 % (4-13); Mean Corpuscular HGB 28.6 pg (26.0-34.0); Mean Corpuscular HGB Conc 30.5 g/dL (31.5-36.5); Mean Corpuscular Volume 94 fL (80-100); Mean Platelet Volume 10.9 fL (9.1-12.4); NEUTROPHILS ABSOLUTE AUTO 2.51 K/mm3 (1.96-9.15); NEUTROPHILS PERCENT AUTO 56 % (41-73); Platelet Count 162 K/mm3 (150-400); RDW Coefficient Variation 13.8 % (11.7-14.2); RDW Standard Deviation 47.7 fL (35.1-46.3); Red Blood Cell Count 2.97 M/mm3 (3.80-5.20); White Blood Cell Count 4.52 K/mm3 (4.00-11.30)
[2019-09-02 04:50] LABS: International Normalized Ratio 2.88; Prothrombin Time Results 27.7 Sec (9.7-11.5)
[2019-09-02 04:53] LABS: Anion Gap 4 mmol/L (6-16); Blood Urea Nitrogen 24 mg/dL (8-24); Bun/Creatinine Ratio 28.3 (12.0-20.0); CO2, Blood 29 mmol/L (21-32); Calcium, Blood 8.3 mg/dL (8.5-10.1); Chloride, Blood 104 mmol/L (98-108); Creatinine, Blood 0.85 mg/dL (0.40-1.00); Glomerular Filtration Rate >60 (60-); Glucose, Blood 169 mg/dL (70-99); Potassium, Blood 4.1 mmol/L (3.5-5.5); Sodium, Blood 137 mmol/L (136-145)
--- NOTE | 2019-09-02 05:19 | NUR ---
Lab called with latest INR results: 2.88, Requesting AM to discuss turning off Heparin drip with the MD. Will pass on information to AM shift. AM shift to follow up with dais request.
--- NOTE | 2019-09-02 16:54 | NUR ---
Shift Summary A/Ox3. Pleasant and cooperative with care. Continues to call appropriately for needs. C/o 06/16 L knee and L foot pain. Pt states knee pain relieved with aspercream. Continues to c/o no pain relief on L foot. SS consult placed for discharge planning and concerns of safety at home d/t living alone. No other acute changes.
[2019-09-03 04:42] LABS: Prothrombin Time Results 39.2 Sec (9.7-11.5)
--- NOTE | 2019-09-03 04:46 | NUR ---
HAD A GOOD NIGHT. COMPLAINTS OF PAIN IN LEFT FOOT "ALMOST GONE" AFTER USE OF ASPERCREAM AND TRAMADOL. PATIENT HAPPY NOT BEING GOOKED UP TO AN IV. LEFT FOOT APPEARS MORE SWOLLEN LAST NIGHT. ENCOURAGED EARLY BEDTIME WITH FEET UP. PATIENT WAS AGREEABLE TO TRY IT THEY HAD BEEN DOWN FOR MOST OF THE EVENING. INR THIS MORNING RETURNED AT 4.2. WILL NOTIFY HOSPITALIST AND SEE IF NEW ORDERS.
[2019-09-03 04:47] LABS: International Normalized Ratio 4.21
--- NOTE | 2019-09-03 15:34 | NUR ---
Spiritual Care note: Codie was alone in room and playing a game on her ipad. She was not interested in visit or prayer. She mainly appeared irritated that I interrupted her game. I will remain available.
--- NOTE | 2019-09-03 17:03 | NUR ---
SHIFT SUMMARY: THIS NURSE TOOK OVER CARE OF THIS PT THIS AFTERNOON. SHE CONTINUES TO BE A X 1 ASSIST FOR TRANSFERS FROM THE BED TO THE CHAIR. SHE REMAINS INC OF B/B. PT HAS BEEN RESTING IN BED WITH NO C/O PAIN. SHE IS ABLE TO MAKE HER NEEDS KNOWN AND CALLS APPROPRIATELY FOR ASSISTANCE WHEN NEEDED.
--- NOTE | 2019-09-04 04:13 | NUR ---
SHIFT SUMMARY PT CONTINUES TO HAVE LLE DISCOMFORT. PT TX PER EMAR WITH SOME RELIEF. PT WAS UP LATE PLAYING GAMES WITH HER FRIEND. PT HAD NO OTHER COMPLAINTS OR ISSUES NOTED. PT CURRENTLY SLEEPING AND BREATHING IN NO DISTRESS. CALL LIGHT IN REACH.
[2019-09-04 07:02] LABS: International Normalized Ratio 3.34; Prothrombin Time Results 31.7 Sec (9.7-11.5)
[2019-09-04] MEDS ORDERED: GABA300 PO (10:27)
[2019-09-04] MEDS ORDERED: TYLENOL325 MG (10:29)
[2019-09-04] MEDS ORDERED: Benadryl Itch28.3 G1 TOP (10:32)
[2019-09-04] MEDS ORDERED: SENN187 (10:33)
[2019-09-04] MEDS ORDERED: TRAM50 PO (10:34)
[2019-09-04] MEDS ORDERED: Aspercreme He70.8 GM (10:35)
[2019-09-04] MEDS ORDERED: Aspercreme He70.8 GM TOP (10:39)
--- NOTE | 2019-09-04 11:26 | NUR ---
PATIENT TO DISCHARGE HOME. IVS REMOVED WITH NO SS OF INFECTION NOTED. NURSE WENT OVER MED LIST WITH PATIENT AND INSTRUCTED HER TO FOLLOW UP WITH [facility] SHE DOES NOT HAVE A PCP. MEDS FAXED TO PHARMACY OF CHOICE. PATIENT TO HAVE FRIEND PICK HER UP AND WILL BE WHEELED DOWN WHEN ITS TIME. BELONGINGS PACKED BY PATIENT.
== END 2019-09-04 12:15 | disposition home health service (06) | DRG 253 ==
LOC: ER 14:06 → MEDS 18:24 → PCU 08-29 13:50 → MEDS 08-30 14:27 → EDPENDDIS 09-04 08:37 → ENPENDDIS 09-04 08:37 → MEDS 09-04 12:15
PROVIDERS: Internal Medicine; Pharmacist; Physician Assistant; Radiology Diagnostic Radiology; ADMIT Hospitalist
PROC: 047K3ZZ Dilation of Right Femoral Artery, Percutaneous Approach (ICD-10-PCS; principal; 2019-08-30)
DX: E11.51 Type 2 diabetes mellitus with diabetic peripheral angiopathy without gangrene (principal); I48.20 Chronic atrial fibrillation, unspecified; I13.0 Hypertensive heart and chronic kidney disease with heart failure and stage 1 through stage 4 chronic kidney disease, or unspecified chronic kidney disease; I50.22 Chronic systolic (congestive) heart failure; E11.42 Type 2 diabetes mellitus with diabetic polyneuropathy; I73.89 Other specified peripheral vascular diseases; Z79.01 Long term (current) use of anticoagulants; Z95.2 Presence of prosthetic heart valve; Z79.4 Long term (current) use of insulin; N31.2 Flaccid neuropathic bladder, not elsewhere classified; N18.3 Chronic kidney disease, stage 3 (moderate); E11.22 Type 2 diabetes mellitus with diabetic chronic kidney disease; E11.65 Type 2 diabetes mellitus with hyperglycemia; D63.1 Anemia in chronic kidney disease; E03.9 Hypothyroidism, unspecified; R26.9 Unspecified abnormalities of gait and mobility
CPT/HCPCS: 36415; 37228; 73630; 75625; 75716; 75774; 80048; 80053; 80069; 82947; 83036; 85025; 85027; 85610; 85730; 86850; 86900; 86901; 93306; 93926; 97110; 97116; 97161; 97165; 97530; 97535; 99152; 99153; 99285-25; A9270; C1725; C1769; C1887; C1894; J1200; J1644; J2250; J3010; J7030; J7040; P9059; Q9967

== ENCOUNTER 2019-10-15 13:45 | Emergency (ER) | payer MEDICARE, OTHER ==
[~2019-10-15] VITALS: Ht 165.1 cm; Wt 127.0 kg
[~2019-10-15 13:45] MED LIST changes: +Aspercreme He70.8 GM; +Aspercreme He70.8 GM TOP; +Aspir 8181 MG PO; +Benadryl Itch28.3 G1 TOP; +Bumetanide2 MG PO; +Cosopt Plus10 ML BOTHEYES; +Ferrous Glucon324 M1 PO; +Flonase 0.05% N16 GM; +GABA100 PO; +GABA300 PO; +Humalog100 UNIT/1 SC; +INSULANPEN SC; +K-TAB ER20 MEQ PO; +LOSARTAN POTASS50 MG PO; +Metoprolol Tart25 MG PO; +SENN187; +TYLENOL325 MG; +Xalatan2.5 ML BOTHEYES
[2019-10-15 14:23] LABS: Base Excess Venous 4.8 mmol/L; Bicarbonate Venous 28.6 mmol/L (24.0-30.0); PO2 Venous 111 mmHg (38-42); pH Blood Venous 7.48 (7.34-7.37)
[2019-10-15 14:36] LABS: BASOPHILS ABSOLUTE AUTO 0.05 K/mm3 (0.00-0.23); BASOPHILS PERCENT AUTO 1 % (0-2); EOSINOPHILS ABSOLUTE AUTO 0.06 K/mm3 (0.00-0.68); EOSINOPHILS PERCENT AUTO 1 % (0-6); Hematocrit 37.1 % (33.0-51.0); Hemoglobin 11.7 g/dL (11.5-16.0); IMMATURE GRAN ABSOLUTE AUTO 0.03 K/mm3 (0.00-0.10); IMMATURE GRAN PERCENT AUTO 0 % (0-1); LYMPHOCYTES PERCENT AUTO 16 % (21-46); MONOCYTES ABSOLUTE AUTO 0.76 K/mm3 (0.16-1.47); MONOCYTES PERCENT AUTO 8 % (4-13); Mean Corpuscular HGB 29.3 pg (26.0-34.0); Mean Corpuscular HGB Conc 31.5 g/dL (31.5-36.5); Mean Corpuscular Volume 93 fL (80-100); Mean Platelet Volume 10.5 fL (9.1-12.4); NEUTROPHILS ABSOLUTE AUTO 7.26 K/mm3 (1.96-9.15); NEUTROPHILS PERCENT AUTO 74 % (41-73); Platelet Count 334 K/mm3 (150-400); RDW Coefficient Variation 13.9 % (11.7-14.2); RDW Standard Deviation 47.8 fL (35.1-46.3); Red Blood Cell Count 3.99 M/mm3 (3.80-5.20); White Blood Cell Count 9.76 K/mm3 (4.00-11.30)
[2019-10-15 15:05] LABS: Albumin, Blood 3.5 g/dL (3.4-5.0); Albumin/Globulin Ratio 0.8 (0.8-1.8); Bilirubin, Total 0.5 mg/dL (0.1-1.0); Bun/Creatinine Ratio 35.3 (12.0-20.0); Creatinine, Blood 1.02 mg/dL (0.40-1.00); Globulin, Blood 4.6 g/dL (2.2-4.0); Potassium, Blood 3.5 mmol/L (3.5-5.5); Total Protein, Blood 8.1 g/dL (6.4-8.2)
[2019-10-15 18:19] LABS: Source, Urine Clean Catch
[2019-10-15 18:22] LABS: Bilirubin, Urine Neg (Neg); Blood, Urine 3+ (Neg); Glucose Qualitative, Urine 1+ (Neg); Ketones, Urine Neg (Neg); Leukocyte Esterase, Urine 3+ (Neg); Nitrite, Urine Pos (Neg); Protein, Urine 2+ (Neg); Urobilinogen, Urine NORM (Normal)
[2019-10-15 18:30] LABS: Appearance, Urine Cloudy (Clear); Color, Urine Yellow (P-Yellow)
[2019-10-15 18:31] LABS: Bacteria Many /hpf; Mucus Mod (0-Heavy); Squamous Epithelial Cells Few /hpf (Few); White Blood Cells, Urine TNTC /hpf (0-5)
[2019-10-15] MEDS ORDERED: Bactrim Ds Tab1 EACH PO (18:36)
== END 2019-10-15 19:23 | disposition home or self-care (01) ==
LOC: ER 13:45
PROVIDERS: Physician Assistant
DX: N39.0 Urinary tract infection, site not specified (principal); E11.65 Type 2 diabetes mellitus with hyperglycemia; I10 Essential (primary) hypertension; I48.91 Unspecified atrial fibrillation; G47.30 Sleep apnea, unspecified; Z88.5 Allergy status to narcotic agent; Z91.018 Allergy to other foods; Z79.899 Other long term (current) drug therapy; Z79.01 Long term (current) use of anticoagulants; Z79.4 Long term (current) use of insulin
CPT/HCPCS: 36415; 71046; 80053; 81001; 82803; 82947; 83880; 85025; 87077; 87086; 87186; 93005; 93010; 96361; 96374; 96376; 99284-25; A9270-GY; J2405; J7030; J7120

== ENCOUNTER 2019-11-01 16:52 | Day surgery (SDC) | payer MEDICARE, OTHER ==
[~2019-11-01 16:52] MED LIST changes: +Bactrim Ds Tab1 EACH PO
--- NOTE | 2019-11-01 17:30 | NUR ---
SPOKE WITH PT RE: COUMADIN EDUCATION. SHE REPORTS SHE HAS TAKEN COUMADIN A LONG TIME AND CANNOT UNDERSTAND WHY HER INR IS DOWN. SHE REPORTS SHE CONFORMS TO A COUMADIN DIET. SHE HAS BEEN TAKING ANTIBIOTICS FOR A UTI, THIS MAY BE THE CAUSE OF THE LOWERED INR IF THE ANTIBIOTICS AND THE COUMADIN INTERACT WITH EACH OTHER. PT HAS NEW PCP APPOINTMENT TOMORROW AND PLANS TO TAKE HER ANTIBIOTIC BOTTLE WITH HER TO TALK TO HER PCP ABOUT THE POSSIBLE INTERACTION OF HER ANTIBIOTICS AND COUMADIN. SHE REPORTS SHE HAS NOT CHANGED HER COUMADIN DOSE RECENTLY.
--- NOTE | 2019-11-01 18:11 | NUR ---
SPOKE WITH [facility]. NEW ORDERS REC'D. PT HAD LAB DRAW INR DONE TODAY AND HER INR IS 1.2.
== END 2019-11-01 17:30 | disposition home or self-care (01) ==
LOC: ATC 16:52
DX: I34.8 Other nonrheumatic mitral valve disorders (principal); I48.20 Chronic atrial fibrillation, unspecified; E11.51 Type 2 diabetes mellitus with diabetic peripheral angiopathy without gangrene; I50.22 Chronic systolic (congestive) heart failure; N31.9 Neuromuscular dysfunction of bladder, unspecified; D64.9 Anemia, unspecified; Z95.0 Presence of cardiac pacemaker; Z88.5 Allergy status to narcotic agent; Z91.048 Other nonmedicinal substance allergy status; Z79.82 Long term (current) use of aspirin; Z79.1 Long term (current) use of non-steroidal anti-inflammatories (NSAID); Z79.01 Long term (current) use of anticoagulants; Z79.4 Long term (current) use of insulin; Z79.899 Other long term (current) drug therapy; Z95.2 Presence of prosthetic heart valve
CPT/HCPCS: 96372; J1650

== ENCOUNTER 2019-11-02 07:54 | Day surgery (SDC) | payer MEDICARE, OTHER | END 2019-11-02 16:33 | disposition home or self-care (01) | LOC: ATC 07:54 | DX: E11.51 Type 2 diabetes mellitus with diabetic peripheral angiopathy without gangrene (principal); I34.8 Other nonrheumatic mitral valve disorders; E11.43 Type 2 diabetes mellitus with diabetic autonomic (poly)neuropathy; I50.22 Chronic systolic (congestive) heart failure; K31.84 Gastroparesis; D64.9 Anemia, unspecified; Z88.5 Allergy status to narcotic agent; Z79.01 Long term (current) use of anticoagulants; Z79.4 Long term (current) use of insulin; Z91.018 Allergy to other foods; Z79.899 Other long term (current) drug therapy; Z79.82 Long term (current) use of aspirin | CPT/HCPCS: 36416; 85610; 96372; J1650 ==

== ENCOUNTER 2019-11-03 08:50 | Day surgery (SDC) | payer MEDICARE, OTHER | END 2019-11-03 15:38 | disposition home or self-care (01) | LOC: ATC 08:50 | DX: E11.51 Type 2 diabetes mellitus with diabetic peripheral angiopathy without gangrene (principal); E11.43 Type 2 diabetes mellitus with diabetic autonomic (poly)neuropathy; K31.84 Gastroparesis; I50.22 Chronic systolic (congestive) heart failure; I48.91 Unspecified atrial fibrillation; D64.9 Anemia, unspecified; Z79.01 Long term (current) use of anticoagulants; Z79.82 Long term (current) use of aspirin; Z79.4 Long term (current) use of insulin; Z88.5 Allergy status to narcotic agent; Z91.018 Allergy to other foods | CPT/HCPCS: 36416; 85610; 96372; J1650 ==

== ENCOUNTER 2019-11-04 07:23 | Day surgery (SDC) | payer MEDICARE, OTHER | END 2019-11-04 16:01 | disposition home or self-care (01) | LOC: ATC 07:23 | DX: I34.8 Other nonrheumatic mitral valve disorders (principal); I48.20 Chronic atrial fibrillation, unspecified; E11.51 Type 2 diabetes mellitus with diabetic peripheral angiopathy without gangrene; I70.208 Unspecified atherosclerosis of native arteries of extremities, other extremity; I50.22 Chronic systolic (congestive) heart failure; N31.9 Neuromuscular dysfunction of bladder, unspecified; D64.9 Anemia, unspecified; Z95.0 Presence of cardiac pacemaker; Z95.2 Presence of prosthetic heart valve; Z88.5 Allergy status to narcotic agent; Z91.048 Other nonmedicinal substance allergy status; Z79.82 Long term (current) use of aspirin; Z79.01 Long term (current) use of anticoagulants; Z79.4 Long term (current) use of insulin; Z79.899 Other long term (current) drug therapy | CPT/HCPCS: 36416; 85610; 96372; J1650 ==

== ENCOUNTER 2019-11-05 00:10 | Day surgery (SDC) | payer MEDICARE, OTHER ==
--- NOTE | 2019-11-05 08:15 | NUR ---
PT'S PERSON THAT HAS BEEN BRINGING HER TO HER APPTS WAS VERY ANGRY AND YELLING AT [employer]CRAFT SYSTEMS TECHNICIAN. SECURITY CALLED. PTS RIDE WAS VERY RUDE TO A CUSTOMER.
== END 2019-11-05 16:39 | disposition home or self-care (01) ==
LOC: ATC 00:10
DX: I38 Endocarditis, valve unspecified (principal); Z79.01 Long term (current) use of anticoagulants; Z79.82 Long term (current) use of aspirin; Z79.4 Long term (current) use of insulin; Z79.899 Other long term (current) drug therapy; Z88.5 Allergy status to narcotic agent; Z88.8 Allergy status to other drugs, medicaments and biological substances
CPT/HCPCS: 36416; 85610; 96372; J1650

== ENCOUNTER 2019-11-06 00:56 | Day surgery (SDC) | payer MEDICARE, OTHER | END 2019-11-06 16:39 | disposition home or self-care (01) | LOC: ATC 00:56 | DX: I34.8 Other nonrheumatic mitral valve disorders (principal); E11.51 Type 2 diabetes mellitus with diabetic peripheral angiopathy without gangrene; I48.20 Chronic atrial fibrillation, unspecified; I50.22 Chronic systolic (congestive) heart failure; D64.9 Anemia, unspecified; N31.9 Neuromuscular dysfunction of bladder, unspecified; Z87.442 Personal history of urinary calculi; Z95.0 Presence of cardiac pacemaker; Z90.49 Acquired absence of other specified parts of digestive tract; Z95.2 Presence of prosthetic heart valve; Z79.01 Long term (current) use of anticoagulants; Z79.82 Long term (current) use of aspirin; Z79.1 Long term (current) use of non-steroidal anti-inflammatories (NSAID); Z79.4 Long term (current) use of insulin; Z79.899 Other long term (current) drug therapy; Z88.5 Allergy status to narcotic agent; Z88.8 Allergy status to other drugs, medicaments and biological substances | CPT/HCPCS: 36416; 85610; 96372; J1650 ==

== ENCOUNTER 2019-11-07 08:00 | Day surgery (SDC) | payer MEDICARE, OTHER ==
--- NOTE | 2019-11-07 08:44 | NUR ---
FINGERSTICK INR 1.7 MEDICATION GIVEN PER ORDERS
[2019-11-08] MEDS ORDERED: LIDO700A20 TOP (11:58)
[2019-11-08] MEDS ORDERED: CEPH500 PO (11:58)
== END 2019-11-07 16:14 | disposition home or self-care (01) ==
LOC: ATC 08:00
DX: I34.8 Other nonrheumatic mitral valve disorders (principal); E11.51 Type 2 diabetes mellitus with diabetic peripheral angiopathy without gangrene; I70.208 Unspecified atherosclerosis of native arteries of extremities, other extremity; I48.20 Chronic atrial fibrillation, unspecified; I50.22 Chronic systolic (congestive) heart failure; N31.9 Neuromuscular dysfunction of bladder, unspecified; D64.9 Anemia, unspecified; Z88.5 Allergy status to narcotic agent; Z88.8 Allergy status to other drugs, medicaments and biological substances; Z95.2 Presence of prosthetic heart valve; Z79.01 Long term (current) use of anticoagulants; Z79.4 Long term (current) use of insulin; Z79.82 Long term (current) use of aspirin; Z79.899 Other long term (current) drug therapy; Z95.0 Presence of cardiac pacemaker; Z90.49 Acquired absence of other specified parts of digestive tract
CPT/HCPCS: 36416; 85610; 96372; J1650

== ENCOUNTER 2019-11-08 00:15 | Day surgery (SDC) | payer MEDICARE, OTHER ==
--- NOTE | 2019-11-08 09:03 | NUR ---
PT APPEARED PALE ON ARRIVAL, PT IN WC. PT C/O FALL THIS AM AND BLOOD IN URINE. INR 1.7. PT INSTRUCTED TO CALL PCP OR GO TO ER OR URGENT CARE FOR POSSIBLE UTI, PT VERBALIZED THAT SHE WOULD.
[2019-11-08] MEDS ORDERED: LIDO700A20 TOP (11:58)
[2019-11-08] MEDS ORDERED: CEPH500 PO (11:58)
[2019-11-09] MEDS ORDERED: CEFU250T47 PO (11:21)
== END 2019-11-08 18:24 | disposition home or self-care (01) ==
LOC: ATC 00:15
DX: I34.8 Other nonrheumatic mitral valve disorders (principal); E11.51 Type 2 diabetes mellitus with diabetic peripheral angiopathy without gangrene; I70.208 Unspecified atherosclerosis of native arteries of extremities, other extremity; I48.20 Chronic atrial fibrillation, unspecified; I50.22 Chronic systolic (congestive) heart failure; N31.9 Neuromuscular dysfunction of bladder, unspecified; D64.9 Anemia, unspecified; Z88.5 Allergy status to narcotic agent; Z88.8 Allergy status to other drugs, medicaments and biological substances; Z95.2 Presence of prosthetic heart valve; Z79.01 Long term (current) use of anticoagulants; Z79.4 Long term (current) use of insulin; Z79.82 Long term (current) use of aspirin; Z79.899 Other long term (current) drug therapy; Z95.0 Presence of cardiac pacemaker; Z90.49 Acquired absence of other specified parts of digestive tract
CPT/HCPCS: 36416; 85610; 96372; J1650

== ENCOUNTER 2019-11-08 09:21 | Emergency (ER) | payer MEDICARE, OTHER ==
[~2019-11-08] VITALS: Ht 165.1 cm; Wt 83.9 kg
[2019-11-08 10:24] LABS: BASOPHILS ABSOLUTE AUTO 0.04 K/mm3 (0.00-0.23); BASOPHILS PERCENT AUTO 1 % (0-2); EOSINOPHILS ABSOLUTE AUTO 0.12 K/mm3 (0.00-0.68); EOSINOPHILS PERCENT AUTO 2 % (0-6); Hematocrit 33.8 % (33.0-51.0); Hemoglobin 10.2 g/dL (11.5-16.0); IMMATURE GRAN ABSOLUTE AUTO 0.01 K/mm3 (0.00-0.10); IMMATURE GRAN PERCENT AUTO 0 % (0-1); LYMPHOCYTES ABSOLUTE AUTO 1.43 K/mm3 (0.84-5.20); LYMPHOCYTES PERCENT AUTO 26 % (21-46); MONOCYTES ABSOLUTE AUTO 0.52 K/mm3 (0.16-1.47); MONOCYTES PERCENT AUTO 9 % (4-13); Mean Corpuscular HGB 28.8 pg (26.0-34.0); Mean Corpuscular HGB Conc 30.2 g/dL (31.5-36.5); Mean Corpuscular Volume 96 fL (80-100); Mean Platelet Volume 10.1 fL (9.1-12.4); NEUTROPHILS ABSOLUTE AUTO 3.48 K/mm3 (1.96-9.15); NEUTROPHILS PERCENT AUTO 62 % (41-73); Platelet Count 244 K/mm3 (150-400); RDW Coefficient Variation 14.6 % (11.7-14.2); RDW Standard Deviation 50.2 fL (35.1-46.3); Red Blood Cell Count 3.54 M/mm3 (3.80-5.20)
[2019-11-08 10:39] LABS: International Normalized Ratio 1.72; Prothrombin Time Results 17.4 Sec (9.7-11.5)
[2019-11-08 10:48] LABS: Alanine Aminotransfer (ALT/SGP 16 U/L (12-78); Albumin, Blood 3.6 g/dL (3.4-5.0); Albumin/Globulin Ratio 0.9 (0.8-1.8); Alk Phos 88 U/L (50-136); Anion Gap 5 mmol/L (6-16); Aspartate Aminotrans (AST/SGOT 17 U/L (12-37); Bilirubin, Total 0.6 mg/dL (0.1-1.0); Blood Urea Nitrogen 15 mg/dL (8-24); CO2, Blood 29 mmol/L (21-32); Calcium, Blood 9.2 mg/dL (8.5-10.1); Chloride, Blood 105 mmol/L (98-108); Creatinine, Blood 0.79 mg/dL (0.40-1.00); Globulin, Blood 4.1 g/dL (2.2-4.0); Glomerular Filtration Rate >60 (60-); Glucose, Blood 197 mg/dL (70-99); Potassium, Blood 4.2 mmol/L (3.5-5.5); Sodium, Blood 139 mmol/L (136-145); Total Protein, Blood 7.7 g/dL (6.4-8.2)
[2019-11-08 11:08] LABS: Source, Urine Clean Catch
[2019-11-08 11:22] LABS: Bilirubin, Urine Neg (Neg); Blood, Urine 5+ (Neg); Glucose Qualitative, Urine 1+ (Neg); Ketones, Urine Neg (Neg); Leukocyte Esterase, Urine 3+ (Neg); Nitrite, Urine Neg (Neg); Protein, Urine 2+ (Neg); Urobilinogen, Urine NORM (Normal)
[2019-11-08 11:33] LABS: Appearance, Urine Cloudy (Clear); Color, Urine Amber (P-Yellow)
[2019-11-08 11:35] LABS: Red Blood Cells, Urine TNTC /hpf (0-2); Squamous Epithelial Cells Rare /hpf (Few); White Blood Cells, Urine 25-50 /hpf (0-5)
[2019-11-08 11:36] LABS: Bacteria Mod /hpf
[2019-11-08] MEDS ORDERED: LIDO700A20 TOP (11:58)
[2019-11-08] MEDS ORDERED: CEPH500 PO (11:58)
[2019-11-09] MEDS ORDERED: CEFU250T47 PO (11:21)
== END 2019-11-08 12:18 | disposition home or self-care (01) ==
LOC: ER 09:21
PROVIDERS: Emergency Medicine
DX: S70.02XA Contusion of left hip, initial encounter (principal); N30.01 Acute cystitis with hematuria; I48.91 Unspecified atrial fibrillation; E11.9 Type 2 diabetes mellitus without complications; I11.0 Hypertensive heart disease with heart failure; I50.22 Chronic systolic (congestive) heart failure; Z88.5 Allergy status to narcotic agent; Z79.82 Long term (current) use of aspirin; Z79.01 Long term (current) use of anticoagulants; Z79.899 Other long term (current) drug therapy; Z79.4 Long term (current) use of insulin; W19.XXXA Unspecified fall, initial encounter
CPT/HCPCS: 36415; 73502; 80053; 81001; 85025; 85610; 87086; 87106; 99283-25; P9612

== ENCOUNTER 2019-11-09 01:34 | Day surgery (SDC) | payer MEDICARE, OTHER ==
[~2019-11-09 01:34] MED LIST changes: +LIDO700A20 TOP
--- NOTE | 2019-11-09 08:23 | NUR ---
BLEEDING: PT C/O BLEEDING EITHER VAGINALLY OR FROM BLADDER. PT STS SHE HAS SOAKED HER PADDED BRIEFS, PT SHOWED THIS TO THIS RN AND BLOOD WAS DRIPPING FROM HER ADRY AREA. INR: 2.1, LOVENOX WAS HELD AT THIS TIME AND PT WAS SENT TO ER WITH SECURITY TAKING HER. REPORT WAS CALLED TO LEATHER TANNER IN ER.
[2019-11-09] MEDS ORDERED: CEFU250T47 PO (11:21)
== END 2019-11-09 08:10 | disposition home or self-care (01) ==
LOC: ATC 01:34
DX: I34.8 Other nonrheumatic mitral valve disorders (principal); E11.51 Type 2 diabetes mellitus with diabetic peripheral angiopathy without gangrene; I48.20 Chronic atrial fibrillation, unspecified; I50.22 Chronic systolic (congestive) heart failure; D64.9 Anemia, unspecified; Z95.0 Presence of cardiac pacemaker; Z95.2 Presence of prosthetic heart valve; Z79.01 Long term (current) use of anticoagulants; Z79.1 Long term (current) use of non-steroidal anti-inflammatories (NSAID); Z79.82 Long term (current) use of aspirin; Z79.4 Long term (current) use of insulin; Z79.899 Other long term (current) drug therapy; Z90.49 Acquired absence of other specified parts of digestive tract; Z88.5 Allergy status to narcotic agent; Z88.8 Allergy status to other drugs, medicaments and biological substances
CPT/HCPCS: 36416; 85610; 99211; J1650

== ENCOUNTER 2019-11-09 08:17 | Emergency (ER) | payer MEDICARE, OTHER ==
[~2019-11-09] VITALS: Ht 165.1 cm; Wt 83.9 kg
[2019-11-09 09:31] LABS: Source, Urine Voided
[2019-11-09 09:39] LABS: BASOPHILS ABSOLUTE AUTO 0.04 K/mm3 (0.00-0.23); BASOPHILS PERCENT AUTO 1 % (0-2); EOSINOPHILS ABSOLUTE AUTO 0.12 K/mm3 (0.00-0.68); EOSINOPHILS PERCENT AUTO 2 % (0-6); Hematocrit 33.9 % (33.0-51.0); Hemoglobin 10.1 g/dL (11.5-16.0); IMMATURE GRAN ABSOLUTE AUTO 0.01 K/mm3 (0.00-0.10); IMMATURE GRAN PERCENT AUTO 0 % (0-1); LYMPHOCYTES ABSOLUTE AUTO 1.48 K/mm3 (0.84-5.20); LYMPHOCYTES PERCENT AUTO 22 % (21-46); MONOCYTES PERCENT AUTO 8 % (4-13); Mean Corpuscular HGB 28.7 pg (26.0-34.0); Mean Corpuscular HGB Conc 29.8 g/dL (31.5-36.5); Mean Corpuscular Volume 96 fL (80-100); Mean Platelet Volume 9.8 fL (9.1-12.4); NEUTROPHILS ABSOLUTE AUTO 4.52 K/mm3 (1.96-9.15); NEUTROPHILS PERCENT AUTO 68 % (41-73); Platelet Count 262 K/mm3 (150-400); RDW Coefficient Variation 14.6 % (11.7-14.2); RDW Standard Deviation 50.6 fL (35.1-46.3); Red Blood Cell Count 3.52 M/mm3 (3.80-5.20); White Blood Cell Count 6.67 K/mm3 (4.00-11.30)
[2019-11-09 09:50] LABS: Appearance, Urine Bloody (Clear); Bilirubin, Urine Neg (Neg); Blood, Urine 5+ (Neg); Color, Urine Red (P-Yellow); Glucose Qualitative, Urine 2+ (Neg); Ketones, Urine Neg (Neg); Leukocyte Esterase, Urine 1+ (Neg); Nitrite, Urine Neg (Neg); Protein, Urine 4+ (Neg); Specific Gravity, Urine 1.015 (1.003-1.022); Urobilinogen, Urine NORM (Normal)
[2019-11-09 09:53] LABS: International Normalized Ratio 2.17; Prothrombin Time Results 21.4 Sec (9.7-11.5)
[2019-11-09 09:57] LABS: Alanine Aminotransfer (ALT/SGP 15 U/L (12-78); Albumin, Blood 3.5 g/dL (3.4-5.0); Albumin/Globulin Ratio 0.9 (0.8-1.8); Alk Phos 86 U/L (50-136); Anion Gap 5 mmol/L (6-16); Aspartate Aminotrans (AST/SGOT 8 U/L (12-37); Bilirubin, Total 0.4 mg/dL (0.1-1.0); Blood Urea Nitrogen 17 mg/dL (8-24); Bun/Creatinine Ratio 18.5 (12.0-20.0); CO2, Blood 29 mmol/L (21-32); Chloride, Blood 105 mmol/L (98-108); Creatinine, Blood 0.92 mg/dL (0.40-1.00); Globulin, Blood 4.1 g/dL (2.2-4.0); Glomerular Filtration Rate >60 (60-); Glucose, Blood 204 mg/dL (70-99); Potassium, Blood 4.2 mmol/L (3.5-5.5); Sodium, Blood 139 mmol/L (136-145); Total Protein, Blood 7.6 g/dL (6.4-8.2)
[2019-11-09 09:58] LABS: Red Blood Cells, Urine TNTC /hpf (0-2); White Blood Cells, Urine 50-100 /hpf (0-5)
[2019-11-09 09:59] LABS: Bacteria Few /hpf; Squamous Epithelial Cells Not Seen /hpf (Few)
[2019-11-09] MEDS ORDERED: CEFU250T47 PO (11:21)
== END 2019-11-09 11:53 | disposition home or self-care (01) ==
LOC: ER 08:17
PROVIDERS: Emergency Medicine
DX: R31.9 Hematuria, unspecified (principal); D68.9 Coagulation defect, unspecified; T45.515A Adverse effect of anticoagulants, initial encounter; I48.91 Unspecified atrial fibrillation; I50.22 Chronic systolic (congestive) heart failure; E11.43 Type 2 diabetes mellitus with diabetic autonomic (poly)neuropathy; K31.84 Gastroparesis; Z88.5 Allergy status to narcotic agent; Z91.018 Allergy to other foods; Z79.899 Other long term (current) drug therapy; Z79.82 Long term (current) use of aspirin; Z79.01 Long term (current) use of anticoagulants; Z79.4 Long term (current) use of insulin; Z95.2 Presence of prosthetic heart valve
CPT/HCPCS: 80053; 81001; 85025; 85610; 87086; 96365; 99283-25; J0694; P9612

== ENCOUNTER 2019-11-10 08:28 | Day surgery (SDC) | payer MEDICARE, OTHER ==
[~2019-11-10 08:28] MED LIST changes: +CEFU250T47 PO
--- NOTE | 2019-11-10 08:37 | NUR ---
PT SHOWED UP TODAY FOR INR AND LOVENOX, HAVE ORDERS PER PHARMACY TO STOP INR'S AND LOVENOX. PT STATES THAT SHE WAS NOT INFORMED ON 11/09/19 TO STOP COMING IN. THIS RN APOLOGIZED FOR THE INCONVENIENCE AND NOTIFIED PT OF STARTING INR THROUGH OUTPATIENT LAB ON 11/12/19 PER ORDERS. PT FRIEND WAS VERY UPSET AND THIS RN DISCUSSED WITH HER THAT THIS RN HAD NO KNOWLEDGE OF THE HAPPENINGS OF 11/09/19 ONLY WHAT THE ORDERS STATES AND WAS SORRY FOR THE INCONVENIENCE OF IT. PT DID NOT SEEM UPSET AND WAS THANKFUL.
== END 2019-11-10 23:12 | disposition home or self-care (01) ==
LOC: ATC 08:28
DX: I34.8 Other nonrheumatic mitral valve disorders (principal); E11.51 Type 2 diabetes mellitus with diabetic peripheral angiopathy without gangrene; I48.20 Chronic atrial fibrillation, unspecified; I50.22 Chronic systolic (congestive) heart failure; D64.9 Anemia, unspecified; Z95.0 Presence of cardiac pacemaker; Z95.2 Presence of prosthetic heart valve; Z79.01 Long term (current) use of anticoagulants; Z79.1 Long term (current) use of non-steroidal anti-inflammatories (NSAID); Z79.82 Long term (current) use of aspirin; Z79.4 Long term (current) use of insulin; Z79.899 Other long term (current) drug therapy; Z90.49 Acquired absence of other specified parts of digestive tract; Z88.5 Allergy status to narcotic agent; Z88.8 Allergy status to other drugs, medicaments and biological substances

== ENCOUNTER 2020-02-17 10:43 | Inpatient (IN) | payer MEDICARE, OTHER ==
[~2020-02-17] VITALS: Ht 165.1 cm; Wt 79.7 kg
[~2020-02-17 10:43] MED LIST changes: -Aspercreme He70.8 GM; +Cipro250 MG PO; +LEVSOD75 PO; -TYLENOL325 MG; +TYLENOL325 MG PO
[2020-02-17 11:18] LABS: BASOPHILS ABSOLUTE AUTO 0.03 K/mm3 (0.00-0.23); BASOPHILS PERCENT AUTO 0 % (0-2); EOSINOPHILS ABSOLUTE AUTO 0.04 K/mm3 (0.00-0.68); EOSINOPHILS PERCENT AUTO 1 % (0-6); Hematocrit 29.7 % (33.0-51.0); Hemoglobin 9.4 g/dL (11.5-16.0); IMMATURE GRAN ABSOLUTE AUTO 0.03 K/mm3 (0.00-0.10); IMMATURE GRAN PERCENT AUTO 0 % (0-1); LYMPHOCYTES ABSOLUTE AUTO 0.76 K/mm3 (0.84-5.20); LYMPHOCYTES PERCENT AUTO 10 % (21-46); MONOCYTES ABSOLUTE AUTO 0.62 K/mm3 (0.16-1.47); MONOCYTES PERCENT AUTO 8 % (4-13); Mean Corpuscular HGB 29.2 pg (26.0-34.0); Mean Corpuscular HGB Conc 31.6 g/dL (31.5-36.5); Mean Corpuscular Volume 92 fL (80-100); Mean Platelet Volume 10.2 fL (9.1-12.4); NEUTROPHILS ABSOLUTE AUTO 6.04 K/mm3 (1.96-9.15); NEUTROPHILS PERCENT AUTO 80 % (41-73); Platelet Count 195 K/mm3 (150-400); RDW Coefficient Variation 14.6 % (11.7-14.2); RDW Standard Deviation 49.5 fL (35.1-46.3); Red Blood Cell Count 3.22 M/mm3 (3.80-5.20); White Blood Cell Count 7.52 K/mm3 (4.00-11.30)
[2020-02-17 11:18] LABS: Source, Urine Catheter
[2020-02-17 11:32] LABS: International Normalized Ratio 1.3; Prothrombin Time Results 13.7 Sec (9.7-11.5)
[2020-02-17 11:37] LABS: Alanine Aminotransfer (ALT/SGP 13 U/L (12-78); Albumin, Blood 2.7 g/dL (3.4-5.0); Albumin/Globulin Ratio 0.7 (0.8-1.8); Alk Phos 82 U/L (50-136); Anion Gap 5 mmol/L (6-16); Aspartate Aminotrans (AST/SGOT 11 U/L (12-37); Bilirubin, Total 0.6 mg/dL (0.1-1.0); Blood Urea Nitrogen 23 mg/dL (8-24); Bun/Creatinine Ratio 18.7 (12.0-20.0); CO2, Blood 32 mmol/L (21-32); Calcium, Blood 8.7 mg/dL (8.5-10.1); Chloride, Blood 96 mmol/L (98-108); Creatinine, Blood 1.23 mg/dL (0.40-1.00); Globulin, Blood 4.1 g/dL (2.2-4.0); Glomerular Filtration Rate 44 (60-); Glucose, Blood 231 mg/dL (70-99); Potassium, Blood 3.6 mmol/L (3.5-5.5); Sodium, Blood 133 mmol/L (136-145); Total Protein, Blood 6.8 g/dL (6.4-8.2); Troponin I <0.015 ng/mL (0.000-0.040)
[2020-02-17 11:38] LABS: Bilirubin, Urine Neg (Neg); Blood, Urine 3+ (Neg); Glucose Qualitative, Urine Neg (Neg); Ketones, Urine Neg (Neg); Leukocyte Esterase, Urine 3+ (Neg); Nitrite, Urine Pos (Neg); Protein, Urine 2+ (Neg); Urobilinogen, Urine NORM (Normal)
[2020-02-17 11:47] LABS: Appearance, Urine Cloudy (Clear); Color, Urine Yellow (P-Yellow)
[2020-02-17 11:49] LABS: Bacteria Many /hpf; Squamous Epithelial Cells Not Seen /hpf (Few); White Blood Cells, Urine TNTC /hpf (0-5)
--- NOTE | 2020-02-17 16:00 | NUR ---
PT ARRIVED TO THE MEDICAL FLOOR AROUND 1400 VIA STRETCHER FROM THE ER, THE PT IS A/OX3, PLEASANT AND COOPERATIVE, THE PT DENIED ANY PAIN, THE PT APPEARED TO BE BREATHING EASILY ON RA, THE PT STATED THAT SHE WAS TO WEAK TO STAND AND TRANSFER TO THE BED AT THIS TIME, PT WAS ORIENTED TO THE ROOM LAYOUT AND CALL SYSTEM, CALL LIGHT IN REACH, PT ANSWERED QUESTIONS APPROPRIATLY, DR. MCCOY ROUNDED ON THE PT, BED ALARM ON WILL CONTINUE TO MONITOR AND ASSESS FOR CHANGES
[2020-02-17] MEDS ORDERED: POTA10T PO (21:51)
[2020-02-17] MEDS ORDERED: SPIR25 PO (21:53)
--- NOTE | 2020-02-18 04:46 | NUR ---
SHIFT SUMMARY PT HAS HAD SOME NAUSEA AND DRY HEAVES THIS SHIFT THAT WAS RELIVED WITH ZOFRAN. SHE ALSO COMPLAINED OF VALDES, MEDICATED HER WITH TYLENOL WITH EFFECT. PT HAS RESTED COMFORTABLY SINCE. IVF INFUSING ORDERED. PT STILL REPORTS WEAKNESS AND FEELS SHE WILL NOT BE ABLE TO GET OOB. PT HAS BEEN HAVING INCONTINENT VOIDS IN HER ATTENDS. ASSESSMENT UNCHANGED OVERNIGHT. VITALS ARE STABLE. PT PENDING S/S AND PLACEMENT ALSO AT THIS TIME. BED IN LOWEST POSITION, CALL LIGHT WITHIN REACH. WILL CONTINUE TO MONITOR AND REPORT TO ONCOMING RN.
[2020-02-18 05:13] LABS: BASOPHILS ABSOLUTE AUTO 0.02 K/mm3 (0.00-0.23); BASOPHILS PERCENT AUTO 0 % (0-2); EOSINOPHILS ABSOLUTE AUTO 0.08 K/mm3 (0.00-0.68); EOSINOPHILS PERCENT AUTO 1 % (0-6); Hematocrit 31.2 % (33.0-51.0); Hemoglobin 9.5 g/dL (11.5-16.0); IMMATURE GRAN ABSOLUTE AUTO 0.01 K/mm3 (0.00-0.10); IMMATURE GRAN PERCENT AUTO 0 % (0-1); LYMPHOCYTES ABSOLUTE AUTO 0.79 K/mm3 (0.84-5.20); LYMPHOCYTES PERCENT AUTO 14 % (21-46); MONOCYTES ABSOLUTE AUTO 0.54 K/mm3 (0.16-1.47); MONOCYTES PERCENT AUTO 10 % (4-13); Mean Corpuscular HGB 28.7 pg (26.0-34.0); Mean Corpuscular HGB Conc 30.4 g/dL (31.5-36.5); Mean Corpuscular Volume 94 fL (80-100); Mean Platelet Volume 10.1 fL (9.1-12.4); NEUTROPHILS ABSOLUTE AUTO 4.09 K/mm3 (1.96-9.15); NEUTROPHILS PERCENT AUTO 74 % (41-73); Platelet Count 209 K/mm3 (150-400); RDW Coefficient Variation 14.6 % (11.7-14.2); RDW Standard Deviation 50.5 fL (35.1-46.3); Red Blood Cell Count 3.31 M/mm3 (3.80-5.20); White Blood Cell Count 5.53 K/mm3 (4.00-11.30)
[2020-02-18 05:28] LABS: International Normalized Ratio 1.44; Prothrombin Time Results 15.1 Sec (9.7-11.5)
[2020-02-18 05:39] LABS: Albumin, Blood 2.5 g/dL (3.4-5.0); Albumin/Globulin Ratio 0.6 (0.8-1.8); Bilirubin, Total 0.4 mg/dL (0.1-1.0); Bun/Creatinine Ratio 18.6 (12.0-20.0); Calcium, Blood 8.6 mg/dL (8.5-10.1); Creatinine, Blood 1.13 mg/dL (0.40-1.00); Globulin, Blood 3.9 g/dL (2.2-4.0); Potassium, Blood 3.5 mmol/L (3.5-5.5); Total Protein, Blood 6.4 g/dL (6.4-8.2)
--- NOTE | 2020-02-18 19:50 | NUR ---
SUMMARY- PT A/O, MARIANO ABOUT DETAILS OF ILLNESS AND SPECIFICS OF HER CIRCUMSTANCES. PT USES HER CALL LIGHT. GETS UP TO THE CHAIR WITH SBA, HAS SOME ATAXIC ISSUES AND KNOWS TO CALL FOR HELP. UP TO CHAIR FOR LUNCH. AND FOR BATHROOM. PT IS INCONTINENT WITH ATTENDS. SKIN INTACT. TOLERATING FOOD AND FLUIDS. DR ARITA ADJUSTED INSULIN FOR HIGH MORINIG AND NOON NUMBERS. REPORTED TO NOC VENKAT.
--- NOTE | 2020-02-19 04:07 | NUR ---
SHIFT SUMMARY ASSUMED CARE PF PT AT 1900. PT IS A/OX4, STATES SHE HAS NEUROPATHY IN HER LEGS. HEART SOUNDS HAVE CLICKING SOUND, HX HEART VALVE, DENIES SOB AT THIS TIME. LUNG SOUNDS CLEAR, DENIES SOB AT THIS TIME. PT WAS INCONTINENT T/O THE NIGHT. NO ACUTE EVENTS DURING THE NIGHT, PT SLEPT T/O THE NIGHT. CALL LIGHT IN REACH, BED IN LOWEST POSITION, WILL CONTINUE TO MOINTOR UNTIL DAYSHIFT NURSE ARRIVES.
[2020-02-19 05:32] LABS: International Normalized Ratio 2.76; Prothrombin Time Results 27.9 Sec (9.7-11.5)
--- NOTE | 2020-02-19 12:54 | NUR ---
Patient is lying in bed and alert. Patient tells me about her medical issues, about her lack of family, and the closeness of her friends. Patient tells me that she is never alone because of her connection to God. Patient has had some poor experiences with latter-day and so she does not attend but prays and reads her Bible often. Patient talks about some of her fears. I listen empathically, reinforce helpful attitudes and practices and provide companionship, pastoral summer counselor and prayer. Patient responds well and shows signs of reduced fear. I will continue to remain available to patient and family.
--- NOTE | 2020-02-19 15:06 | NUR ---
SHIFT SUMMARY PT RESTING QUIETLY AT START OF SHIFT. PLEASANT AND CO-OP WITH CARE. ADMITTED FOR ARF. PER REPORT, PT LIVES ALONE AT [facility]. PT UP TO SHOWER AFTER BREAKFAST; 1P ASSIST USING FWW. PT SLIGHTLY UNSTEADY ON HER OWN. 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 URINARY INCONTINENCE; ATTENDS IN PLACE. A&O WITH SOME FORGETFULNESS. SITTING UP TO CHAIR SINCE GETTING OUT OF SHOWER. DENIED FURTHER NEEDS. CALL LT IN REACH.
--- NOTE | 2020-02-20 04:59 | NUR ---
SHIFT SUMMARY ADMITTED FOR HEYDI. FULL CODE. PLAN IS FOR PHYSICAL THERAPY/OT EVAL. PT LIVES ALONE AT [place]. SHE IS UNSTEADY ON HER FEET AND IS A 1 ASSIST. SHE IS ON WARFARIN FOR HX: MITRAL VALVE REPLACEMENT. SHE IS CONTINENT/INCONTINENT. ADA/2 GRAM LOW SODIUM DIET, ACHS CHEMSTICKS, HIGH SLIDING SCALE, RA, PILLS MAY BE TAKEN WHOLE WITH WATER. HX: COPD, NEUROPATHY, HTN, DM2, HYPOTHYROID, FALLS, TARIQ, DEPRESSION, AFIB.
[2020-02-20 05:35] LABS: International Normalized Ratio 3.28; Prothrombin Time Results 32.8 Sec (9.7-11.5)
[2020-02-20] MEDS ORDERED: CEPH500 PO (14:12)
--- NOTE | 2020-02-20 16:18 | NUR ---
REVIEW D'C. TAVON HAS MEDS AT [facility]. AWARE TO TAKE 1/2 PILL OF HER ALLOPURINOL DAILY. GIVEN PILL CUTTER THAT WAS USED FOR HER HERE. REVIEW MEDS. ADVISED EMILY WILL CALL HER ABOUT APPT F/U. TAVON LUCERO KIMBERLEY WILL CALL HER AND SET UP APPTS. FOR THEM TO COME AND SEE HER. WILL GICE HER HER COUMADIN BEFORE SHE LEAVES AND THEN SHE WILL TAKE HER NORMAL 4 MG DOSE TOMORROW. TAVON LUCERO WILL DO INR ON TUESDAY. ANSWER ALL QUESTIONS. AWAITING RIDE.
== END 2020-02-20 17:21 | disposition home or self-care (01) | DRG 683 ==
LOC: ER 10:43 → MEDS 12:49 → ENPENDDIS 02-20 13:25 → MEDS 02-20 17:21
PROVIDERS: Emergency Medicine; Pharmacist; ADMIT Family Medicine
DX: N17.9 Acute kidney failure, unspecified (principal); N39.0 Urinary tract infection, site not specified; J96.11 Chronic respiratory failure with hypoxia; I50.22 Chronic systolic (congestive) heart failure; E86.0 Dehydration; B96.20 Unspecified Escherichia coli [E. coli] as the cause of diseases classified elsewhere; B95.4 Other streptococcus as the cause of diseases classified elsewhere; E11.40 Type 2 diabetes mellitus with diabetic neuropathy, unspecified; E11.65 Type 2 diabetes mellitus with hyperglycemia; J44.9 Chronic obstructive pulmonary disease, unspecified; F32.9 Major depressive disorder, single episode, unspecified; E03.9 Hypothyroidism, unspecified; G47.33 Obstructive sleep apnea (adult) (pediatric); I48.0 Paroxysmal atrial fibrillation; M35.3 Polymyalgia rheumatica; R29.6 Repeated falls; I27.20 Pulmonary hypertension, unspecified; I11.0 Hypertensive heart disease with heart failure; I95.9 Hypotension, unspecified; I25.10 Atherosclerotic heart disease of native coronary artery without angina pectoris; Z79.01 Long term (current) use of anticoagulants; Z95.2 Presence of prosthetic heart valve; Z79.4 Long term (current) use of insulin; Z79.82 Long term (current) use of aspirin; Z79.84 Long term (current) use of oral hypoglycemic drugs; Z79.51 Long term (current) use of inhaled steroids
CPT/HCPCS: 36415; 70450; 71046; 72100; 72125; 80053; 81001; 82947; 83036; 84484; 85025; 85610; 87077; 87086; 87186; 93005; 93010; 96365; 96375; 97110; 97116; 97162; 97165; 97530; 97535; 99285-25; A9270; A9270-GY; J0696; J1815; J2405; J3010; J7030; P9612

== ENCOUNTER → 2020-04-03 | Outpatient (CLI) | payer MEDICARE ==
[~2020-04-03] MED LIST changes: +POTA10T PO
== END | disposition home or self-care (01) ==
LOC: LAB EV 17:24 → LAB SHORT 17:24
DX: N39.0 Urinary tract infection, site not specified (principal)
CPT/HCPCS: 87086; 87106

== ENCOUNTER 2020-05-11 13:38 | Emergency (ER) | payer MEDICARE ==
[~2020-05-11] VITALS: Ht 170.2 cm; Wt 83.9 kg
[~2020-05-11 13:38] MED LIST changes: +BASAGLAR K100 UNIT/1 SC; +ESCI20 PO; +EUTHYROX88 MCG PO; -INSULANPEN SC; -LEVSOD75 PO
[2020-05-11 14:16] LABS: BASOPHILS ABSOLUTE AUTO 0.02 K/mm3 (0.00-0.23); BASOPHILS PERCENT AUTO 0 % (0-2); EOSINOPHILS ABSOLUTE AUTO 0.13 K/mm3 (0.00-0.68); EOSINOPHILS PERCENT AUTO 2 % (0-6); Hemoglobin 10.1 g/dL (11.5-16.0); IMMATURE GRAN ABSOLUTE AUTO 0.02 K/mm3 (0.00-0.10); IMMATURE GRAN PERCENT AUTO 0 % (0-1); LYMPHOCYTES ABSOLUTE AUTO 1.45 K/mm3 (0.84-5.20); LYMPHOCYTES PERCENT AUTO 20 % (21-46); MONOCYTES ABSOLUTE AUTO 0.46 K/mm3 (0.16-1.47); MONOCYTES PERCENT AUTO 6 % (4-13); Mean Corpuscular HGB 28.9 pg (26.0-34.0); Mean Corpuscular HGB Conc 30.6 g/dL (31.5-36.5); Mean Corpuscular Volume 95 fL (80-100); Mean Platelet Volume 9.9 fL (9.1-12.4); NEUTROPHILS ABSOLUTE AUTO 5.29 K/mm3 (1.96-9.15); NEUTROPHILS PERCENT AUTO 72 % (41-73); Platelet Count 328 K/mm3 (150-400); RDW Coefficient Variation 15.2 % (11.7-14.2); Red Blood Cell Count 3.49 M/mm3 (3.80-5.20); White Blood Cell Count 7.37 K/mm3 (4.00-11.30)
[2020-05-11 14:17] LABS: Source, Urine Catheter
[2020-05-11 14:34] LABS: Bilirubin, Urine Neg (Neg); Blood, Urine 5+ (Neg); Glucose Qualitative, Urine 2+ (Neg); Ketones, Urine 1+ (Neg); Leukocyte Esterase, Urine 2+ (Neg); Nitrite, Urine Neg (Neg); Protein, Urine 4+ (Neg); Urobilinogen, Urine NORM (Normal)
[2020-05-11 14:35] LABS: Appearance, Urine Bloody (Clear); Color, Urine Red (P-Yellow); Red Blood Cells, Urine TNTC /hpf (0-2); Squamous Epithelial Cells Rare /hpf (Few)
[2020-05-11 14:36] LABS: Bacteria Many /hpf; Mucus Light (0-Heavy)
[2020-05-11 14:38] LABS: Prothrombin Time Results 70.3 Sec (9.7-11.5)
[2020-05-11 14:39] LABS: International Normalized Ratio 7.36
[2020-05-11 14:48] LABS: Albumin, Blood 3.3 g/dL (3.4-5.0); Albumin/Globulin Ratio 0.7 (0.8-1.8); Bilirubin, Total 0.4 mg/dL (0.1-1.0); Calcium, Blood 9.2 mg/dL (8.5-10.1); Creatinine, Blood 1.06 mg/dL (0.40-1.00); Globulin, Blood 4.8 g/dL (2.2-4.0); Total Protein, Blood 8.1 g/dL (6.4-8.2)
== END 2020-05-11 15:26 | disposition home or self-care (01) ==
LOC: ER 13:38
PROVIDERS: Emergency Medicine
DX: N93.9 Abnormal uterine and vaginal bleeding, unspecified (principal); R31.9 Hematuria, unspecified; R79.1 Abnormal coagulation profile; J44.9 Chronic obstructive pulmonary disease, unspecified; I25.10 Atherosclerotic heart disease of native coronary artery without angina pectoris
CPT/HCPCS: 80053; 81001; 85025; 85610; 85730; 86850; 86900; 86901; 87077; 87086; 87186; 99283-25; P9612

== ENCOUNTER 2020-05-16 00:56 | Inpatient (IN) | payer MEDICARE ==
[~2020-05-16] VITALS: Ht 165.1 cm; Wt 79.4 kg
[2020-05-16 02:00] LABS: BASOPHILS ABSOLUTE AUTO 0.06 K/mm3 (0.00-0.23); BASOPHILS PERCENT AUTO 1 % (0-2); EOSINOPHILS ABSOLUTE AUTO 0.17 K/mm3 (0.00-0.68); EOSINOPHILS PERCENT AUTO 2 % (0-6); Hematocrit 32.5 % (33.0-51.0); Hemoglobin 9.8 g/dL (11.5-16.0); IMMATURE GRAN ABSOLUTE AUTO 0.06 K/mm3 (0.00-0.10); IMMATURE GRAN PERCENT AUTO 1 % (0-1); LYMPHOCYTES ABSOLUTE AUTO 1.61 K/mm3 (0.84-5.20); LYMPHOCYTES PERCENT AUTO 14 % (21-46); MONOCYTES ABSOLUTE AUTO 0.68 K/mm3 (0.16-1.47); MONOCYTES PERCENT AUTO 6 % (4-13); Mean Corpuscular HGB Conc 30.2 g/dL (31.5-36.5); Mean Corpuscular Volume 96 fL (80-100); Mean Platelet Volume 9.9 fL (9.1-12.4); NEUTROPHILS ABSOLUTE AUTO 8.66 K/mm3 (1.96-9.15); NEUTROPHILS PERCENT AUTO 77 % (41-73); Platelet Count 360 K/mm3 (150-400); RDW Coefficient Variation 15.6 % (11.7-14.2); RDW Standard Deviation 54.9 fL (35.1-46.3); Red Blood Cell Count 3.38 M/mm3 (3.80-5.20); White Blood Cell Count 11.24 K/mm3 (4.00-11.30)
[2020-05-16 02:17] LABS: Source, Urine Catheter
[2020-05-16 02:18] LABS: Albumin, Blood 3.1 g/dL (3.4-5.0); Albumin/Globulin Ratio 0.7 (0.8-1.8); Bilirubin, Total 0.3 mg/dL (0.1-1.0); Bun/Creatinine Ratio 14.2 (12.0-20.0); Calcium, Blood 8.9 mg/dL (8.5-10.1); Creatinine, Blood 1.13 mg/dL (0.40-1.00); Globulin, Blood 4.7 g/dL (2.2-4.0); Potassium, Blood 4.6 mmol/L (3.5-5.5); Total Protein, Blood 7.8 g/dL (6.4-8.2)
[2020-05-16 02:21] LABS: Bilirubin, Urine Neg (Neg); Blood, Urine 5+ (Neg); Glucose Qualitative, Urine Neg (Neg); Ketones, Urine 1+ (Neg); Leukocyte Esterase, Urine 3+ (Neg); Nitrite, Urine Pos (Neg); Protein, Urine 4+ (Neg); Specific Gravity, Urine 1.015 (1.003-1.022); Urobilinogen, Urine 1+ (Normal)
[2020-05-16 02:21] LABS: International Normalized Ratio 8.1
[2020-05-16 02:22] LABS: Appearance, Urine Turbid (Clear); Color, Urine Brown (P-Yellow)
[2020-05-16 02:28] LABS: Bacteria Many /hpf; Red Blood Cells, Urine TNTC /hpf (0-2); Squamous Epithelial Cells Not Seen /hpf (Few); White Blood Cells, Urine TNTC /hpf (0-5)
[2020-05-16] MEDS ORDERED: ROCKLATAN 0.022.5 M1 BOTHEYES (03:30)
[2020-05-16] MEDS ORDERED: TIMO.5OPSO BOTHEYES (03:31)
--- NOTE | 2020-05-16 04:54 | NUR ---
PATIENT TRANSFERRED TO THE FLOOR WITH EDT. BELONGINGS SENT WITH PATIENT.
[2020-05-16] MEDS ORDERED: BUME2 PO (05:45)
[2020-05-16] MEDS ORDERED: FERROUS GLUCON324 M2 PO (05:45)
--- NOTE | 2020-05-16 05:55 | NUR ---
SHIFT SUMMARY PT ER ADMIT THIS SHIFT FOR SUBTHERAPEUTIC INR. S/P GROUND LEVEL MECHANICAL FALL AT HOME. CT, CHEST X-RAY NEGATIVE FOR ACUTE CHANGES. BRUISE RIB FROM FALL AND SOME PAIN WITH INSPIRATION, BUT PT COMFORTABLE AT REST. SKIN INTACT. PT RECEIVED VITAMIN K WHILE IN ER FOR INR. REPEAT LABS AFTER VITAMIN K ADMINISTRATION, PENDING THOSE RESULTS AT THIS TIME. PT IS A/OX4, PLESANT WITH CARE. DENIES NEEDS WHEN ASKED. VITALS STABLE AND ADMISSION COMPLETE. PT RESTING IN BED AT THIS TIME WITH NO S/S OF DISTRESS. BED IN LOWEST POSITION, [facility].
[2020-05-16 05:57] LABS: Prothrombin Time Results 79.1 Sec (9.7-11.5)
[2020-05-16 06:04] LABS: International Normalized Ratio 8.34
--- NOTE | 2020-05-16 18:37 | NUR ---
PATIENT A/OX4, UP WITH 1 ASSIST TO CHAIR. PATIENT ADMITTED AFTER GL FALL AT HOME. INR SUBTHERAPEUTIC, ORDER TO RECHECK IN AM. 20G IV TO R FA WNL AND SL. ROCEPHIN STARTED TODAY FOR UTI. TYLENOL GIVEN X2 TODAY TO TREAT R RIB PAIN. FALL PRECAUTIONS PER UNIT PROTOCOL. PT/OT ORDERS PLACED. PATIENT IS CALM AND COOPERATIVE WITH CARE. TOLERATING ADA DIET, ACHS BLOOD SUGARS, SS COVERAGE NEEDED WITH EACH MEAL.
--- NOTE | 2020-05-16 19:00 | NUR ---
ASSUMED CARE RECEIVED REPORT FROM VENKAT BOYER. ASSUMED CARE OF PT. RESTING COMFORTABLY AT THIS TIME, NO S/S ACUTE DISTRESS NOTED. DENIES NEEDS AT THIS TIME. CALL LIGHT, POSSESSIONS IN REACH, REMINDED PT TO CALL WITH NEEDS BEFORE GETTING OOB. INDICATED UNDERSTANDING. WILL CONTINUE TO MONITOR.
[2020-05-17 05:10] LABS: International Normalized Ratio 1.9; Prothrombin Time Results 19.6 Sec (9.7-11.5)
--- NOTE | 2020-05-17 07:52 | NUR ---
SHIFT SUMMARY PT ASLEEP AT THIS TIME, NO S/S ACUTE DISTRESS NOTED. NO ACUTE EVENTS NOTED T/O SHIFT, PT SLEPT T/O. GABAPENTIN HELD FOR DROWSINESS, PT REMAINS DROWSY BUT AROUSABLE THIS AM. VS STABLE. NO ADVERSE EFFECTS FROM FALL NOTED, NEURO STATUS STABLE. CALL LIGHT IN REACH, BED IN LOWEST POSITION WITH ALARMS ON. REPORTED OFF TO DAY RN.
--- NOTE | 2020-05-17 19:14 | NUR ---
SHIFT SUMMARY: NO ACUTE CHANGES TO REPORT THIS SHIFT. PT A&O; CALM AND COOPERATIVE WITH CARE. LIDOCAINE TOP TO LUMBAR AREA. NOVOLOG SS CHANGED TO HIGH SS THI SHIFT; POC GLUCOSE AT DINNER IS 132. IV ABX CONTINUING; PT/ OT FOLLOWING. REPORT GIVEN TO ONCOMING RN.
--- NOTE | 2020-05-17 19:15 | NUR ---
ASSUMED CARE RECEIVED REPORT FROM VENKAT RAYGOZA. ASSUMED CARE OF PT. RESTING COMFORTABLY AT THIS TIME, NO S/S ACUTE DISTRESS NOTED. DENIES NEEDS AT THIS TIME. CALL LIGHT, POSSESSIONS IN REACH, BED IN LOWEST POSITION WITH ALARMS ON. WILL CONTINUE TO MONITOR.
[2020-05-18 05:47] LABS: International Normalized Ratio 1.76; Prothrombin Time Results 18.2 Sec (9.7-11.5)
--- NOTE | 2020-05-18 07:28 | NUR ---
SHIFT SUMMARY PT HAS HAD NO ACUTE EVENTS NOTED T/O SHIFT. SLEPT T/O. VS AND LABS STABLE. DENIES NEEDS AT THIS TIME. CALL LIGHT, POSSESSIONS IN REACH, BED IN LOWEST POSITION WITH ALARMS ON. REPORT GIVEN TO VENKAT RAYGOZA.
[2020-05-18] MEDS ORDERED: WARF2.5 PO (13:07)
[2020-05-18] MEDS ORDERED: CEFD300 PO (13:07)
--- NOTE | 2020-05-18 15:06 | NUR ---
SHIFT SUMMARY PT WOKE FOR SHIFT REPORT THIS AM. A&O, ABLE TO MAKE NEEDS KNOWN. ON 2L O2 FOR HS ONLY; PT REPORTED ONLY WEARING AT NIGHT. PT ADMITTED FOR ELEVATED INR; ON COUMADIN FOR MECHANICAL HEART VALVE. PER REPORT, COUMADIN BEING HELD UNTIL LAST NIGHT, THEN RESTARTED. PER REPORT, PT FELL AT HOME RECEIVING BRUISES TO R SIDE, BACK, AND HEAD. LIDOCAINE PATCH PLACED ON R SIDE RIB AREA FOR PAIN FROM FALL. PT ON TELE; PACED WITH OCCASSIONAL PVC'S PER MX TECH. PT CONTINENT AND INCONTINENT OF BLADDER; DOES NOT KNOW WHEN SHE VOIDS, BUT IS ABLE TO VOID WHEN UP TO BSC. 1P ASSIST TO CHAIR OR BSC. INSULIN DEPENDENT DIABETIC. PT NOT WANTING TO WORK WITH O/T THIS AM; REPORTED THAT SHE DIDN'T SLEEP MUCH LAST NIGHT. PT REPORTED VAGINAL ITCHING AND BURNING THIS AM; DR MARCELO NOTIFIED. NEW ORDERS PLACED. DR MARCELO DISCUSSED D/C PLAN WITH PT. ORDERS PLACED. PT'S SISTER HERE TO PICK HER UP. PT ASSISTED OUT TO CAR VIA W/C. [facility]. D/C ORDERS DISCUSSED WITH PT; COUMADIN INFO GIVEN. PT TO F/U WITH LABS TOMORROW AND PCP PER ORDERS. PT TX'D SELF TO CAR FROM W/C.
== END 2020-05-18 13:22 | disposition home health service (06) | DRG 813 ==
LOC: ER 00:56 → MEDS 00:57
PROVIDERS: Emergency Medicine; Internal Medicine; ADMIT Internal Medicine
DX: D68.32 Hemorrhagic disorder due to extrinsic circulating anticoagulants (principal); N39.0 Urinary tract infection, site not specified; J96.11 Chronic respiratory failure with hypoxia; T45.515A Adverse effect of anticoagulants, initial encounter; Y92.009 Unspecified place in unspecified non-institutional (private) residence as the place of occurrence of the external cause; B96.20 Unspecified Escherichia coli [E. coli] as the cause of diseases classified elsewhere; I49.5 Sick sinus syndrome; Z95.0 Presence of cardiac pacemaker; Z95.2 Presence of prosthetic heart valve; E11.40 Type 2 diabetes mellitus with diabetic neuropathy, unspecified; E11.22 Type 2 diabetes mellitus with diabetic chronic kidney disease; I12.9 Hypertensive chronic kidney disease with stage 1 through stage 4 chronic kidney disease, or unspecified chronic kidney disease; N18.3 Chronic kidney disease, stage 3 (moderate); Z79.4 Long term (current) use of insulin; E03.9 Hypothyroidism, unspecified; F32.9 Major depressive disorder, single episode, unspecified; G47.33 Obstructive sleep apnea (adult) (pediatric); I48.0 Paroxysmal atrial fibrillation; M35.3 Polymyalgia rheumatica; Z99.81 Dependence on supplemental oxygen; E11.65 Type 2 diabetes mellitus with hyperglycemia; T14.90XA Injury, unspecified, initial encounter; W19.XXXA Unspecified fall, initial encounter
CPT/HCPCS: 36415; 70450; 71046; 72125; 80053; 81001; 82947; 85025; 85610; 87077; 87086; 87186; 96365; 96366; 96375; 97161; 97165; 99285-25; A9270; A9270-GY; G0378; J0696; J2405; J3010; J7050; P9612

== ENCOUNTER → 2020-08-22 | Outpatient (CLI) | payer MEDICARE, OTHER ==
[~2020-08-22] MED LIST changes: +BUME2 PO; +CEFD300 PO; +FERROUS GLUCON324 M2 PO; +ROCKLATAN 0.022.5 M1 BOTHEYES; +TIMO.5OPSO BOTHEYES; +WARF2.5 PO
== END | disposition home or self-care (01) ==
LOC: LAB EV 18:15 → LAB SHORT 18:15
DX: N39.0 Urinary tract infection, site not specified (principal)
CPT/HCPCS: 87077; 87086; 87186

== ENCOUNTER → 2020-11-06 | Outpatient (CLI) | payer MEDICARE ==
[~2020-11-06] MED LIST changes: +Aspirin EC81 MG PO; +COLACE100 MG PO; +ENOX120I SC; +Estrace Vagin42.5 GM; +HUMALOG KW100 UNIT/1 SC; +HUMALOG MI100 UNIT/1; +HUMALOG MI100 UNIT/1 SC; +JANTOVEN4 M2; +MULTIPLE VITAM1 EACH PO; +NITR100CA PO; +NITROFURANTOIN50 M4 PO; +PANT20 PO; +POTA20PAC PO; +ROCKLATAN 0.022.5 M1 BOTHEARS; +ROCKLATAN 0.022.5 M1 OP; +TIMO.25OPS BOTHEYES; +WARF3
[2020-11-11 14:11] LABS: HPV 16 Negative (Negative); HPV 18 Negative (Negative); HPV OTHER HR TYPES Negative (Negative)
== END | disposition home or self-care (01) ==
LOC: LAB SHORT 12:39
PROVIDERS: Obstetrics & Gynecology
DX: Z01.419 Encounter for gynecological examination (general) (routine) without abnormal findings (principal)
CPT/HCPCS: 87624; 88142

== ENCOUNTER 2020-12-01 05:49 | Inpatient (IN) | payer MEDICARE, SELFPAY ==
[~2020-12-01] VITALS: Ht 165.1 cm; Wt 87.0 kg
[~2020-12-01 05:49] MED LIST changes: -Aspirin EC81 MG PO; -COLACE100 MG PO; -ENOX120I SC; -Estrace Vagin42.5 GM; -HUMALOG KW100 UNIT/1 SC; -HUMALOG MI100 UNIT/1; -HUMALOG MI100 UNIT/1 SC; -JANTOVEN4 M2; -MULTIPLE VITAM1 EACH PO; -NITR100CA PO; -NITROFURANTOIN50 M4 PO; -PANT20 PO; -POTA20PAC PO; -ROCKLATAN 0.022.5 M1 BOTHEARS; -ROCKLATAN 0.022.5 M1 OP; -TIMO.25OPS BOTHEYES; -WARF3
[2020-12-01] MEDS ORDERED: ENOX120I SC (06:53)
[2020-12-01] MEDS ORDERED: TRAM50 PO (06:55)
[2020-12-01] MEDS ORDERED: LOSA50 PO (06:56)
[2020-12-01] MEDS ORDERED: HUMALOG MI100 UNIT/1 SC (06:58)
[2020-12-01] MEDS ORDERED: COLACE100 MG PO (06:59)
[2020-12-01] MEDS ORDERED: LORA.5 PO (06:59)
[2020-12-01 08:09] LABS: Hematocrit 23.6 % (33.0-51.0); Hemoglobin 6.9 g/dL (11.5-16.0); Mean Corpuscular HGB 27.6 pg (26.0-34.0); Mean Corpuscular HGB Conc 29.2 g/dL (31.5-36.5); Mean Corpuscular Volume 94 fL (80-100); Mean Platelet Volume 9.6 fL (9.1-12.4); Platelet Count 255 K/mm3 (150-400); RDW Coefficient Variation 14.7 % (11.7-14.2); RDW Standard Deviation 50.7 fL (35.1-46.3); RETICULOCYTE ABSOLUTE 0.0673 M/mm3 (0.0200-0.1100); RETICULOCYTE COUNT PERCENT 2.69 % (0.50-2.50); White Blood Cell Count 8.24 K/mm3 (4.00-11.30)
[2020-12-01 08:35] LABS: Albumin/Globulin Ratio 0.8 (0.8-1.8); Bilirubin, Direct 0.2 mg/dL (0.0-0.3); Bilirubin, Indirect 0.5 mg/dL (0.1-0.7); Bilirubin, Total 0.7 mg/dL (0.1-1.0); Globulin, Blood 3.7 g/dL (2.2-4.0); Total Protein, Blood 6.7 g/dL (6.4-8.2)
[2020-12-01 08:38] LABS: BASOPHILS PERCENT MAN 0 % (0-2); EOSINOPHILS ABSOLUTE MAN 0.32 K/mm3 (0.00-0.68); EOSINOPHILS PERCENT MAN 4 % (0-6); LYMPHOCYTES ABSOLUTE MAN 1.15 K/mm3 (0.84-5.20); LYMPHOCYTES PERCENT MAN 14 % (21-46); MONOCYTES ABSOLUTE MAN 0.98 K/mm3 (0.16-1.47); MONOCYTES PERCENT MAN 12 % (4-13); NEUTROPHILS ABSOLUTE MAN 5.76 K/mm3 (1.96-9.15); SEG NEUTROPHILS PERCENT MAN 70 % (41-73); TOTAL CELLS COUNTED 100
[2020-12-01 08:42] LABS: Percent Saturation 5.6 % (15.0-50.0)
[2020-12-01 18:55] LABS: International Normalized Ratio 1.28; Prothrombin Time Results 13.5 Sec (9.7-11.5)
--- NOTE | 2020-12-01 19:13 | NUR ---
SHIFT SUMMARY: PT RECIEVED UNIT OF BLOOD WITH PLANS FOR GI CONSULT TOMORROW WHEN AVAILABLE. PT REMAINS PALE BUT STATES SHE FEELS BETTER. NO ACUTE NEEDS OR CONCERNS AT THIS TIME.
[2020-12-02 03:47] LABS: BASOPHILS ABSOLUTE AUTO 0.03 K/mm3 (0.00-0.23); BASOPHILS PERCENT AUTO 0 % (0-2); EOSINOPHILS ABSOLUTE AUTO 0.13 K/mm3 (0.00-0.68); EOSINOPHILS PERCENT AUTO 2 % (0-6); Hematocrit 26.8 % (33.0-51.0); Hemoglobin 7.9 g/dL (11.5-16.0); IMMATURE GRAN ABSOLUTE AUTO 0.02 K/mm3 (0.00-0.10); IMMATURE GRAN PERCENT AUTO 0 % (0-1); LYMPHOCYTES ABSOLUTE AUTO 0.93 K/mm3 (0.84-5.20); LYMPHOCYTES PERCENT AUTO 13 % (21-46); MONOCYTES ABSOLUTE AUTO 0.56 K/mm3 (0.16-1.47); MONOCYTES PERCENT AUTO 8 % (4-13); Mean Corpuscular HGB 27.5 pg (26.0-34.0); Mean Corpuscular HGB Conc 29.5 g/dL (31.5-36.5); Mean Corpuscular Volume 93 fL (80-100); Mean Platelet Volume 9.8 fL (9.1-12.4); NEUTROPHILS ABSOLUTE AUTO 5.33 K/mm3 (1.96-9.15); NEUTROPHILS PERCENT AUTO 76 % (41-73); Platelet Count 230 K/mm3 (150-400); RDW Coefficient Variation 14.6 % (11.7-14.2); RDW Standard Deviation 50.3 fL (35.1-46.3); Red Blood Cell Count 2.87 M/mm3 (3.80-5.20)
[2020-12-02 04:08] LABS: Albumin/Globulin Ratio 0.8 (0.8-1.8); Bilirubin, Total 0.9 mg/dL (0.1-1.0); Bun/Creatinine Ratio 16.1 (12.0-20.0); Calcium, Blood 8.3 mg/dL (8.5-10.1); Creatinine, Blood 1.12 mg/dL (0.40-1.00); Globulin, Blood 3.7 g/dL (2.2-4.0); Total Protein, Blood 6.7 g/dL (6.4-8.2)
--- NOTE | 2020-12-02 10:51 | NUR ---
AM NOTE PT APPEARS TO BE SLEEPING; ALERT AND ORIENTED x3; CALM AND COOPERATIVE WITH CARE. PT RESTGING IN BED. PT ATTENDS CHANGED THIS AM AND PT REPOSITIONED FOR BREAKFAST. NOTIFIED DR AREVALO OF [facility] IN 60'S; NEW ORDERS TO CHANGE HUMALOG ORDER TO LOW SLIDING SCALE. PT DENIES PAIN, SOB, NAUSEA AND DIZZINESS. R RADIAL SITE HAS TEGADERM IN PLACE, SLIGHT SHADOW NOTED; ARM BOARD IN PLACE. O2 TUBING NOTE IN PLACE, SPO2 86-87% REPLACED 2L O2 VIA NC AND SPO2 >90%. VSS. PT REPORTS LAST DARK STOOL 6 WEEKS AGO AND LAST FOR APPROX 1 WEEK. WILL CONTINUE TO MONITOR.
--- NOTE | 2020-12-02 14:21 | NUR ---
PT VERY UNSTEADY PT VERY UNSTEADY WHEN AMBULATING TO THE BATHROOM. LOST BALANCE VERY EASILY. RNAVILA, WAS THERE WITH BASKET HAND WEAVER FOR THE EPISODE.
[2020-12-02] MEDS ORDERED: ROCKLATAN 0.022.5 M1 BOTHEARS (15:00)
[2020-12-02] MEDS ORDERED: NITR100CA PO (15:01)
[2020-12-02] MEDS ORDERED: FERROUS GLUCON324 M2 PO (15:05)
--- NOTE | 2020-12-02 17:49 | NUR ---
ADMIT:12/01/20 DISCHARGE: DX: aortic stenosis CC: [email or web address] ADMIT: 05/15/20 DISCHARGE: DX: Supratherapeutic INR CC: JENNY CALL: Call JEREMY Gambino for jenny RESIDENCE: Home- alone Friend JEREMY lives in same building CAREGIVER: Dirk Dominguez, friend and Jeremy Immanuel, friend [phone]-- helps with hernadez care, meds, transportation DX: CHF, COPD, HTN, see list DME: Wheelchair, DM supplies, Battery Scooter, Walker, Oxygen. CCM: No record HOME HEALTH: [facility] SUMMARY: Admit 12/01/20 12/02/20 Gastro consult and procedure planned for Tuesday. Met with Doris and JEREMY in patients room, JEREMY helps with [place] care needs, they live in separate apartments . Discussed discharge home after Gastro procedure tomorrow. Completed [place] jenny letter. Doris has mobility equipment at home, discussed home health, but she did not agree to services. Will ask again at discharge. JEREMY will drive her home and sampler pickup new meds if needed. Discussed [employer] caregiver services, left information list and telephone number for them to call to apply for services. Pt This is a pleasant 80-year-old lady who presented to [facility] for PCI as part of TAVR workup and found to have hgb 6.9 so her oil spraying machine operator recommended she be admitted for further managment of this. PROBLEMS:
--- NOTE | 2020-12-02 18:27 | NUR ---
SHIFT SUMMARY PT APPEARS TO BE SLEEPING T/O SHIFT. IMPULSIVE AND FORGETFUL AT TIMES. CONTNIUES TO DENY PAIN, SOB, NAUSEA AND DIZZINESS. PT REFUSING TURNING AND SOME CARE THIS EVENING; TURNING IND IN BED; PERFERS HER LEFT SIDE. VSS. NO OTHER ACUTE CHANGES NOTED DURING SHIFT. WILL CONTINUE TO MONTIOR UNTIL REPORT GIVEN TO ONCOMING RN.
[2020-12-03 00:49] LABS: BASOPHILS ABSOLUTE AUTO 0.02 K/mm3 (0.00-0.23); BASOPHILS PERCENT AUTO 0 % (0-2); EOSINOPHILS ABSOLUTE AUTO 0.09 K/mm3 (0.00-0.68); EOSINOPHILS PERCENT AUTO 1 % (0-6); Hemoglobin 7.4 g/dL (11.5-16.0); IMMATURE GRAN ABSOLUTE AUTO 0.01 K/mm3 (0.00-0.10); IMMATURE GRAN PERCENT AUTO 0 % (0-1); LYMPHOCYTES PERCENT AUTO 19 % (21-46); MONOCYTES ABSOLUTE AUTO 0.69 K/mm3 (0.16-1.47); MONOCYTES PERCENT AUTO 10 % (4-13); Mean Corpuscular HGB 27.7 pg (26.0-34.0); Mean Corpuscular HGB Conc 29.6 g/dL (31.5-36.5); Mean Corpuscular Volume 94 fL (80-100); Mean Platelet Volume 9.7 fL (9.1-12.4); NEUTROPHILS PERCENT AUTO 69 % (41-73); Platelet Count 229 K/mm3 (150-400); RDW Coefficient Variation 14.7 % (11.7-14.2); RDW Standard Deviation 49.8 fL (35.1-46.3); Red Blood Cell Count 2.67 M/mm3 (3.80-5.20); White Blood Cell Count 7.21 K/mm3 (4.00-11.30)
[2020-12-03 01:04] LABS: Anion Gap 6 mmol/L (6-16); Blood Urea Nitrogen 15 mg/dL (8-24); Bun/Creatinine Ratio 17.4 (12.0-20.0); CO2, Blood 29 mmol/L (21-32); Calcium, Blood 7.1 mg/dL (8.5-10.1); Chloride, Blood 108 mmol/L (98-108); Creatinine, Blood 0.86 mg/dL (0.40-1.00); Glomerular Filtration Rate >60 (60-); Glucose, Blood 136 mg/dL (70-99); Potassium, Blood 3.2 mmol/L (3.5-5.5); Sodium, Blood 143 mmol/L (136-145)
--- NOTE | 2020-12-03 01:24 | NUR ---
PTT CRITICALLY HIGH >139. HOLDING HEP GTT FOR 1HR. RECHECKING/RESTART IN 1 HR. NO SIGNS OF BLEEDING. WILL CONTINUE TO MONITOR.
--- NOTE | 2020-12-03 05:43 | NUR ---
SHIFT SUMMARY PT RESTED WELL THROUGHOUT THE NIGHT. ALERT AND ORIENTED - VERY LETHARGIC. PT REQUESTED TO BE LEFT ALONE MAJORITY OF NIGHT SO SHE COULD CATCH UP ON HER SLEEP. SATS >90% ON 2LNC. TELE NSR. NO C/O CHEST PAIN. VOIDS IN BRIEF - ATTENDS CHANGED NEEDED. PLACED ON CONTACT PRECAUTIONS FOR R/O C.DIFF. PENDING RESULTS. FREQUENT LOOSE STOOLS - HELD SENNA AND COLACE. VSS. CALL LIGHT WITHIN REACH, BED IN LOWEST POSITION. WILL CONTINUE TO MONITOR.
[2020-12-03 10:06] LABS: Influenza A, PCR Negative (NEGATIVE); Influenza B, PCR Negative (NEGATIVE); Resp Syncytial Virus, PCR Negative (NEGATIVE); SARS-Cov-2 (COVID-19) PCR, MMC Negative (NEGATIVE)
--- NOTE | 2020-12-03 12:20 | NUR ---
SUMMARY: Admit 12/01/20 12/03/20- per chart review with Dr. Ruiz, pt will not be d/c today. She has an upper GI procedure scheduled for and there is concern that she may have C. Diff. Pt also is needing O2, which she does use at home. No est. ETA for d/c at this time. -golden
--- NOTE | 2020-12-03 12:56 | NUR ---
Call from day surgery, regarding pt. States they will need to keep heparin gtt running, and will need another IV for the EGD. Day surgery coming to get the pt at this time.
--- NOTE | 2020-12-03 13:38 | NUR ---
12/03/20 [address] History, Chart, Medications and Allergies reviewed before start of procedure.3-LEAD EKG REVIEWED WITH PHYSICIAN PRIOR TO START OF PROCEDURE.History, Chart, Medications and Allergies reviewed before start of procedure.O2 VIA POM INTACT THROUGHOUT SEDATION/PROCEDURE.
--- NOTE | 2020-12-03 16:15 | NUR ---
Spoke with Dr. Ruiz regarding incompatibility of ordered IV iron and continuous heparin gtt which the pt is on, and limited IV access at this time. She will discuss options with pharmacy and come to assess the pt for readiness for discharge this evening.
[2020-12-03] MEDS ORDERED: Omeprazole20 M1 PO (18:06)
--- NOTE | 2020-12-03 18:54 | NUR ---
DISCHARGE SUMMARY PT A&Ox3; FORGETFUL AT TIMES. PT RESTING IN BED DURING SHIFT. UP WITH 1 PERSON ASSIST AND WALKER TO BATHROOM. PT DENIES PAIN, SOB, NAUSEA AND DIZZINESS. PT ON 2L O2 VIA NC WHILE SLEEPING OR AFTER EGD. HEPARIN TRANSITIONED TO [facility] THIS EVENING FOR DISCHARGE, PT ADMINITERED LOVENOX INJECTION TO SELF.VSS. NO OTHER ACUTE CHAGNES NOTED DURING SHIFT. PT EDUCATED ON DISCHARGE INSTRUCTIONS, FOLLOW UP APPOINTMENTS, BRIDGE FROM [facility] TO COUMADIN, INR CLINIC FOLLOW UP AND MEDICATIONS. PRESCRIPTIONS SENT TO [facility], PER PT REQUEST. PT LEFT ROOM VIA WHEELCHAIR AT 1836.
[2021-01-23] MEDS ORDERED: BUME2 PO (11:52)
[2021-01-23] MEDS ORDERED: Aspirin EC81 MG PO (11:52)
[2021-01-23] MEDS ORDERED: ALLO300 PO (11:52)
[2021-01-23] MEDS ORDERED: DOCU100 PO (11:53)
[2021-01-23] MEDS ORDERED: ENOX120I SC (11:53)
[2021-01-23] MEDS ORDERED: ESCI20 PO (11:54)
[2021-01-23] MEDS ORDERED: Estrace Vagin42.5 GM (11:54)
[2021-01-23] MEDS ORDERED: GABA300 PO (11:54)
[2021-01-23] MEDS ORDERED: EUTHYROX88 MCG PO (11:55)
[2021-01-23] MEDS ORDERED: LATA.005SO BOTHEYES (11:55)
[2021-01-23] MEDS ORDERED: BASAGLAR K100 UNIT/1 SC (11:55)
[2021-01-23] MEDS ORDERED: HUMALOG MI100 UNIT/1 (11:55)
[2021-01-23] MEDS ORDERED: LORA.5 PO (11:56)
[2021-01-23] MEDS ORDERED: METF500 PO (11:56)
[2021-01-23] MEDS ORDERED: LOSA50 PO (11:56)
[2021-01-23] MEDS ORDERED: METO25 PO (11:56)
[2021-01-23] MEDS ORDERED: ROCKLATAN 0.022.5 M1 OP (11:57)
[2021-01-23] MEDS ORDERED: NITROFURANTOIN50 M4 PO (11:57)
[2021-01-23] MEDS ORDERED: MULTIPLE VITAM1 EACH PO (11:57)
[2021-01-23] MEDS ORDERED: TIMO.25OPS BOTHEYES (11:58)
[2021-01-23] MEDS ORDERED: POTA20PAC PO (11:58)
[2021-01-23] MEDS ORDERED: SPIR25 PO (11:58)
[2021-01-23] MEDS ORDERED: OMEP20ER PO (11:58)
[2021-01-23] MEDS ORDERED: TRAM50 PO (11:58)
[2021-01-23] MEDS ORDERED: WARF4 PO (11:59)
== END 2020-12-03 18:36 | disposition home or self-care (01) | DRG 812 ==
LOC: MHTC 05:49 → PCU 09:13
PROVIDERS: Family Medicine; Internal Medicine Gastroenterology; ADMIT Internal Medicine Cardiovascular Disease
PROC: B2111ZZ Fluoroscopy of Multiple Coronary Arteries using Low Osmolar Contrast (ICD-10-PCS; 2020-12-01)
PROC: 30233N1 Transfusion of Nonautologous Red Blood Cells into Peripheral Vein, Percutaneous Approach (ICD-10-PCS; 2020-12-01)
PROC: 0DJ08ZZ Inspection of Upper Intestinal Tract, Via Natural or Artificial Opening Endoscopic (ICD-10-PCS; principal; 2020-12-03 13:30)
DX: D50.9 Iron deficiency anemia, unspecified (principal); I50.22 Chronic systolic (congestive) heart failure; I13.0 Hypertensive heart and chronic kidney disease with heart failure and stage 1 through stage 4 chronic kidney disease, or unspecified chronic kidney disease; I35.0 Nonrheumatic aortic (valve) stenosis; E11.40 Type 2 diabetes mellitus with diabetic neuropathy, unspecified; E03.9 Hypothyroidism, unspecified; Z87.891 Personal history of nicotine dependence; Z79.82 Long term (current) use of aspirin; Z79.4 Long term (current) use of insulin; E11.22 Type 2 diabetes mellitus with diabetic chronic kidney disease; N18.30 Chronic kidney disease, stage 3 unspecified; Z79.01 Long term (current) use of anticoagulants; I48.91 Unspecified atrial fibrillation; Z95.0 Presence of cardiac pacemaker; Z95.2 Presence of prosthetic heart valve; I27.20 Pulmonary hypertension, unspecified; I49.5 Sick sinus syndrome; G47.33 Obstructive sleep apnea (adult) (pediatric); Z20.822 Contact with and (suspected) exposure to COVID-19
CPT/HCPCS: 0241U; 36415; 36416; 36430; 80048; 80053; 80076; 82728; 82947; 83010; 83036; 83540; 83550; 83615; 85007; 85025; 85027; 85045; 85610; 85730; 86850; 86900; 86901; 86923; 87493; 88305; 88342; 93454; 97116; 97162; 97165; 97535; 99152; A9270; C1769; C1894; J1644; J1650; J2001; J2250; J2370; J2704; J2916; J3010; J3480; J7030; J7050; P9016; Q9967

== ENCOUNTER 2021-03-25 09:36 | Emergency (ER) | payer MEDICARE ==
[~2021-03-25] VITALS: Ht 165.1 cm; Wt 83.5 kg
[~2021-03-25 09:36] MED LIST changes: +Aspirin EC81 MG PO; +COLACE100 MG PO; +ENOX120I SC; +Estrace Vagin42.5 GM; +HUMALOG MI100 UNIT/1; +HUMALOG MI100 UNIT/1 SC; +MULTIPLE VITAM1 EACH PO; +NITR100CA PO; +NITROFURANTOIN50 M4 PO; +POTA20PAC PO; +ROCKLATAN 0.022.5 M1 BOTHEARS; +ROCKLATAN 0.022.5 M1 OP; +TIMO.25OPS BOTHEYES
[2021-03-25 11:26] LABS: BASOPHILS ABSOLUTE AUTO 0.04 K/mm3 (0.00-0.23); BASOPHILS PERCENT AUTO 1 % (0-2); EOSINOPHILS ABSOLUTE AUTO 0.08 K/mm3 (0.00-0.68); EOSINOPHILS PERCENT AUTO 1 % (0-6); Hematocrit 24.4 % (33.0-51.0); Hemoglobin 7.2 g/dL (11.5-16.0); IMMATURE GRAN ABSOLUTE AUTO 0.02 K/mm3 (0.00-0.10); IMMATURE GRAN PERCENT AUTO 0 % (0-1); LYMPHOCYTES ABSOLUTE AUTO 0.79 K/mm3 (0.84-5.20); LYMPHOCYTES PERCENT AUTO 14 % (21-46); MONOCYTES ABSOLUTE AUTO 0.42 K/mm3 (0.16-1.47); MONOCYTES PERCENT AUTO 7 % (4-13); Mean Corpuscular HGB 28.2 pg (26.0-34.0); Mean Corpuscular HGB Conc 29.5 g/dL (31.5-36.5); Mean Corpuscular Volume 96 fL (80-100); Mean Platelet Volume 10.3 fL (9.1-12.4); NEUTROPHILS ABSOLUTE AUTO 4.49 K/mm3 (1.96-9.15); NEUTROPHILS PERCENT AUTO 77 % (41-73); Platelet Count 228 K/mm3 (150-400); RDW Coefficient Variation 15.6 % (11.7-14.2); RDW Standard Deviation 53.8 fL (35.1-46.3); Red Blood Cell Count 2.55 M/mm3 (3.80-5.20); White Blood Cell Count 5.84 K/mm3 (4.00-11.30)
[2021-03-25 11:45] LABS: Albumin, Blood 3.1 g/dL (3.4-5.0); Albumin/Globulin Ratio 0.8 (0.8-1.8); Bilirubin, Total 0.4 mg/dL (0.1-1.0); Bun/Creatinine Ratio 15.4 (12.0-20.0); Calcium, Blood 8.4 mg/dL (8.5-10.1); Creatinine, Blood 1.3 mg/dL (0.40-1.00); Globulin, Blood 3.9 g/dL (2.2-4.0); Potassium, Blood 4.7 mmol/L (3.5-5.5)
[2021-03-25] MEDS ORDERED: LOVA40 PO (12:49)
[2021-03-25] MEDS ORDERED: PANT20 PO (12:50)
[2021-03-25] MEDS ORDERED: HUMALOG KW100 UNIT/1 SC (12:50)
[2021-03-25] MEDS ORDERED: JANTOVEN4 M2 (12:52)
[2021-03-25] MEDS ORDERED: WARF3 (12:53)
[2021-03-25 13:10] LABS: Prothrombin Time Results 46.6 Sec (9.7-11.5)
[2021-03-25 13:14] LABS: International Normalized Ratio 4.71
== END 2021-03-25 15:28 | disposition home or self-care (01) ==
LOC: ER 09:36
PROVIDERS: Emergency Medicine; Physician Assistant
DX: D64.9 Anemia, unspecified (principal); I48.91 Unspecified atrial fibrillation; R79.1 Abnormal coagulation profile; Z79.01 Long term (current) use of anticoagulants; Z87.19 Personal history of other diseases of the digestive system; Z88.5 Allergy status to narcotic agent; Z91.048 Other nonmedicinal substance allergy status
CPT/HCPCS: 36415; 80053; 82947; 85025; 85610; 86850; 86900; 86901; 93005; 93010; 99283-25

== ENCOUNTER 2021-03-27 00:19 | Day surgery (SDC) | payer MEDICARE ==
[~2021-03-27 00:19] MED LIST changes: +HUMALOG KW100 UNIT/1 SC; +JANTOVEN4 M2; +PANT20 PO; +WARF3
== END 2021-03-27 18:30 | disposition home or self-care (01) ==
LOC: ATC 00:19
DX: D64.9 Anemia, unspecified (principal); J44.9 Chronic obstructive pulmonary disease, unspecified; E11.9 Type 2 diabetes mellitus without complications; M10.9 Gout, unspecified; I11.0 Hypertensive heart disease with heart failure; I50.9 Heart failure, unspecified; E78.00 Pure hypercholesterolemia, unspecified; E66.9 Obesity, unspecified; G47.33 Obstructive sleep apnea (adult) (pediatric); E03.9 Hypothyroidism, unspecified; I35.0 Nonrheumatic aortic (valve) stenosis; Z95.0 Presence of cardiac pacemaker; Z85.41 Personal history of malignant neoplasm of cervix uteri; Z68.31 Body mass index [BMI] 31.0-31.9, adult; Z95.4 Presence of other heart-valve replacement; Z87.440 Personal history of urinary (tract) infections; Z86.73 Personal history of transient ischemic attack (TIA), and cerebral infarction without residual deficits; Z88.5 Allergy status to narcotic agent; Z91.018 Allergy to other foods; Z79.01 Long term (current) use of anticoagulants; Z79.82 Long term (current) use of aspirin; Z79.4 Long term (current) use of insulin
CPT/HCPCS: 36430; 86850; 86900; 86901; 86923; J7050; P9016

== ENCOUNTER 2021-11-09 15:38 | Emergency (ER) | payer MEDICARE ==
[~2021-11-09] VITALS: Ht 167.6 cm; Wt 77.1 kg
[~2021-11-09 15:38] MED LIST changes: +ALEVAZOL56.7 G1 VAG; +ATIVAN0.5 MG PO; +Lopressor 25 mg25 MG PO; +NITROFURANTOIN PO; +WARF1
[2021-11-09 16:21] LABS: BASOPHILS ABSOLUTE AUTO 0.03 K/mm3 (0.00-0.23); BASOPHILS PERCENT AUTO 1 % (0-2); EOSINOPHILS ABSOLUTE AUTO 0.17 K/mm3 (0.00-0.68); EOSINOPHILS PERCENT AUTO 3 % (0-6); Hemoglobin 9.7 g/dL (11.5-16.0); IMMATURE GRAN ABSOLUTE AUTO 0.01 K/mm3 (0.00-0.10); IMMATURE GRAN PERCENT AUTO 0 % (0-1); LYMPHOCYTES ABSOLUTE AUTO 1.42 K/mm3 (0.84-5.20); LYMPHOCYTES PERCENT AUTO 25 % (21-46); MONOCYTES ABSOLUTE AUTO 0.43 K/mm3 (0.16-1.47); MONOCYTES PERCENT AUTO 8 % (4-13); Mean Corpuscular HGB Conc 31.3 g/dL (31.5-36.5); Mean Corpuscular Volume 93 fL (80-100); Mean Platelet Volume 10.5 fL (9.1-12.4); NEUTROPHILS ABSOLUTE AUTO 3.69 K/mm3 (1.96-9.15); NEUTROPHILS PERCENT AUTO 64 % (41-73); Platelet Count 262 K/mm3 (150-400); RDW Coefficient Variation 15.5 % (11.7-14.2); RDW Standard Deviation 52.8 fL (35.1-46.3); Red Blood Cell Count 3.34 M/mm3 (3.80-5.20); White Blood Cell Count 5.75 K/mm3 (4.00-11.30)
[2021-11-09 16:36] LABS: International Normalized Ratio 3.69; Prothrombin Time Results 35.6 Sec (9.7-11.5)
[2021-11-09 16:48] LABS: Albumin/Globulin Ratio 0.9 (0.8-1.8); Bilirubin, Total 0.5 mg/dL (0.1-1.0); Bun/Creatinine Ratio 17.4 (12.0-20.0); Calcium, Blood 8.4 mg/dL (8.5-10.1); Creatinine, Blood 1.15 mg/dL (0.40-1.00); Globulin, Blood 3.3 g/dL (2.2-4.0); Potassium, Blood 5.2 mmol/L (3.5-5.5); Total Protein, Blood 6.3 g/dL (6.4-8.2)
[2021-11-09 17:35] LABS: Appearance, Urine Bloody (Clear); Bilirubin, Urine Neg (Neg); Blood, Urine 5+ (Neg); Color, Urine Red (P-Yellow); Glucose Qualitative, Urine Neg (Neg); Ketones, Urine Neg (Neg); Leukocyte Esterase, Urine 3+ (Neg); Nitrite, Urine Neg (Neg); Protein, Urine 4+ (Neg); Specific Gravity, Urine 1.015 (1.003-1.022); Urobilinogen, Urine NORM (Normal)
[2021-11-09 17:41] LABS: Source, Urine Catheter
[2021-11-09 17:42] LABS: Red Blood Cells, Urine TNTC /hpf (0-2); Squamous Epithelial Cells Few /hpf (Few); White Blood Cells, Urine TNTC /hpf (0-5)
[2021-11-09 17:44] LABS: Bacteria Many /hpf; Transitional Epithelial Cells Few /hpf (0-Rare)
[2021-11-09] MEDS ORDERED: CEFD300 PO (20:19)
== END 2021-11-09 20:40 | disposition home or self-care (01) ==
LOC: ER 15:38
PROVIDERS: Physician Assistant
DX: N39.0 Urinary tract infection, site not specified (principal); E11.40 Type 2 diabetes mellitus with diabetic neuropathy, unspecified; I11.0 Hypertensive heart disease with heart failure; I50.9 Heart failure, unspecified; I48.91 Unspecified atrial fibrillation; G47.33 Obstructive sleep apnea (adult) (pediatric); Z88.5 Allergy status to narcotic agent; Z88.8 Allergy status to other drugs, medicaments and biological substances; Z79.84 Long term (current) use of oral hypoglycemic drugs; Z79.4 Long term (current) use of insulin; Z79.01 Long term (current) use of anticoagulants; Z79.899 Other long term (current) drug therapy
CPT/HCPCS: 36415; 74177; 76856; 80053; 81001; 84484; 85025; 85610; 86850; 86900; 86901; 87077; 87086; 87186; 93005; 93010; 99284-25; A9270; P9612; Q9967

== ENCOUNTER → 2021-11-17 | Outpatient (CLI) | payer MEDICARE ==
[2021-11-20 13:11] LABS: HPV 16 Negative (Negative); HPV 18 Negative (Negative); HPV OTHER HR TYPES Negative (Negative)
== END ==
LOC: LAB SHORT 16:25
PROVIDERS: Registered Nurse Community Health
DX: Z12.72 Encounter for screening for malignant neoplasm of vagina (principal); N94.89 Other specified conditions associated with female genital organs and menstrual cycle
CPT/HCPCS: 87624; G0123

== ENCOUNTER 2022-08-20 03:23 | Inpatient (IN) | payer MEDICARE ==
[~2022-08-20] VITALS: Ht 165.1 cm; Wt 89.5 kg
[2022-08-20 04:01] LABS: BASOPHILS ABSOLUTE AUTO 0.01 K/mm3 (0.00-0.23); BASOPHILS PERCENT AUTO 0 % (0-2); EOSINOPHILS ABSOLUTE AUTO 0.02 K/mm3 (0.00-0.68); EOSINOPHILS PERCENT AUTO 0 % (0-6); IMMATURE GRAN ABSOLUTE AUTO 0.04 K/mm3 (0.00-0.10); IMMATURE GRAN PERCENT AUTO 0 % (0-1); LYMPHOCYTES PERCENT AUTO 13 % (21-46); MONOCYTES ABSOLUTE AUTO 0.44 K/mm3 (0.16-1.47); MONOCYTES PERCENT AUTO 5 % (4-13); Mean Corpuscular HGB 27.2 pg (26.0-34.0); Mean Corpuscular Volume 94 fL (80-100); Mean Platelet Volume 10.2 fL (9.1-12.4); NEUTROPHILS ABSOLUTE AUTO 7.63 K/mm3 (1.96-9.15); NEUTROPHILS PERCENT AUTO 82 % (41-73); NRBC ABSOLUTE 0.05 K/mm3 (0.00-0.02); NRBC Auto 0.5 /100 WBC (0.0-0.2); Platelet Count 275 K/mm3 (150-400); RDW Coefficient Variation 16.6 % (11.7-14.2); RDW Standard Deviation 55.5 fL (35.1-46.3); Red Blood Cell Count 1.47 M/mm3 (3.80-5.20); White Blood Cell Count 9.34 K/mm3 (4.00-11.30)
[2022-08-20 04:03] LABS: Hematocrit 13.8 % (33.0-51.0)
[2022-08-20 04:19] LABS: Albumin, Blood 2.6 g/dL (3.4-5.0); Albumin/Globulin Ratio 0.8 (0.8-1.8); Bilirubin, Total 0.2 mg/dL (0.1-1.0); Calcium, Blood 8.2 mg/dL (8.5-10.1); Creatinine, Blood 1.25 mg/dL (0.40-1.00); Globulin, Blood 3.4 g/dL (2.2-4.0); Potassium, Blood 4.9 mmol/L (3.5-5.5)
[2022-08-20 04:49] LABS: Prothrombin Time Results >90.0 Sec (9.7-11.5)
[2022-08-20 04:51] LABS: International Normalized Ratio >10.00
[2022-08-20] MEDS ORDERED: CILOSTAZOL50 M1 PO (05:33)
[2022-08-20] MEDS ORDERED: DONEPEZIL HCL5 M2 PO (05:34)
[2022-08-20] MEDS ORDERED: Altoprev40 MG PO (05:35)
[2022-08-20] MEDS ORDERED: OMEP20ER PO (05:36)
--- NOTE | 2022-08-20 07:08 | NUR ---
ARRIVAL TO ICU 6 PT ARRIVED FROM ED VIA GURNEY. PT A/O X 2. VSS ON RA. LUNGS SOUNDS CLEAR/DIM. CLICK HEARD W/ HEART SOUNDS. PT INC OF URINE AND BOWEL WITH SOILED ATTENDS. ATTENDS REPLACED AND ADRY CARE COMPLETED. PRBC INFUSING AT 200ML/HR FROM ED. NO BELONGINGS BROUGHT WITH PT. NO FAMILY AT BEDSIDE. BEDSIDE REPORT COMPLETED W/ JEANINE ROBLEDO.
--- NOTE | 2022-08-20 07:30 | NUR ---
TOOK OVER CARE OF PT AT 0710, PT RESTING ON RA. PRBC'S INFUSING
[2022-08-20 10:27] LABS: Hemoglobin 5.4 g/dL (11.5-16.0)
[2022-08-20 10:28] LABS: Hematocrit 17.3 % (33.0-51.0)
--- NOTE | 2022-08-20 10:39 | NUR ---
Pt. is somnilent but responds when I enter the room. The Pt. welcomes my visit. The Pt. displays evidence of being at peace with her circumstances. Listen theraputically with a caring presence. Prayed with Pt. Pt. verbalized welcomed the prayer and verbalized gratitude for the spiritual car visit.
[2022-08-20 17:37] LABS: International Normalized Ratio 1.78
--- NOTE | 2022-08-20 19:07 | NUR ---
SHIFT SUMMARY NEURO: PT ORIENTED TO SELF AND SITUATION. PT STATES ANTONIO IS PRESIDENT EVEN AFTER REORIENTATION. PT HAS BECOME MORE ALERT THROUGHOUT THE DAY. MOVES ALL EXTREMETIES WITH EQUAL STRENGTH. LUNGS: PT WEARS 2L AT BASELINE. CRACKLES IN BASES CARDIAC: MECHANICAL VALVE CLICK. OT IN ACCELERATED JUNCTIONAL RHYTHM. NO CONTINUE COMPLAINTS OF CP. PT HAD TACE-1 EDEMA FORMING AND WAS GIVEN 40 OF LASIX. REPEAT EKG AND TROPONIN COMPLETED. GI: NO BM OR OTHER SIGNS OF BLEEDING. NO COMPLAINTS OF STOMACH PAIN OR GERD. PT WAS GIVEN VITAMIN K AND PROTONIX GTT CONTINUES. : LARGE CLEAR OUTPUT AFTER LASIX. PT IS INCONTINENT. PT RECIEVED 4 PRBC'S, AND 3 FFP.
--- NOTE | 2022-08-20 21:00 | NUR ---
ASSUMPTION OF CARE: ASSUMED CARE OF PT AT 1900. BEDSIDE REPORT OBTAINED FROM JEANINE RN. PT IS IN BED SLEEPING AT THIS MOMENT. PT IS PLEASANT TO TALK WITH AND IS FOLLOWING COMMANDS AT THIS TIME. PT IS A&O X 3 AND IS ABLE TO RECALL YEAR CORRECTLY AND STATES SHE IS AT A HOSPITAL IN [place]. PT IS DROWSY BUT ABLE TO WAKE EASILY AND STAY AWAKE DURING CONVERSATIONS AND MED ADMINISTRATION. PT CLEAR LUNG SOUNDS AND DIM BASES BILAT. PT ON 2 L VIA NC WITH O2 LEVELS 98< AND 22 20-24. PT ON CONTINUOUS MANAGER WEB APPLICATION WITH HR IN THE 90-110'S AND SBP 120'S. OCCASIONAL PACED BEATS NOTED BY THIS RN; APPEARS TO BE VENTRICULAR PACED. PT HAS NO C/O SOB OR CHEST PAIN. PT HAS SOFT, NON-TENDER ABD AND HYPERACTIVE BOWEL SOUNDS IN ALL FOUR QUADRANTS. PT IS INCONTINENT OF URINE/STOOL AND HAS A DEPENDS IN PLACE AND A PUREWICK HOOKED UP TO LOW, CONTINUOUS SUCTIONING. PT HAS WARM EXTREMITIES WITH COOL HANDS, PPP X 4. PT HAS SCATTERED BRUISED ON HANDS AND ARMS THAT ARE IN VARIOUS STAGES. PT HAS GREAT ROM AND IS ABLE TO PARTICIPATE IN CARE. PT GIVEN WARM BLANKET, FRESH WATER, AND CALL LIGHT IS IN REACH. PT BACK TO SLEEPING AT THIS TIME. WILL CONTINUE TO MONITOR THROUGHOUT THE SHIFT.
[2022-08-20 22:49] LABS: Hematocrit 24.3 % (33.0-51.0); Hemoglobin 7.9 g/dL (11.5-16.0)
[2022-08-21 03:42] LABS: BASOPHILS ABSOLUTE AUTO 0.04 K/mm3 (0.00-0.23); BASOPHILS PERCENT AUTO 0 % (0-2); EOSINOPHILS ABSOLUTE AUTO 0.17 K/mm3 (0.00-0.68); EOSINOPHILS PERCENT AUTO 2 % (0-6); Hematocrit 23.1 % (33.0-51.0); Hemoglobin 7.5 g/dL (11.5-16.0); IMMATURE GRAN ABSOLUTE AUTO 0.09 K/mm3 (0.00-0.10); IMMATURE GRAN PERCENT AUTO 1 % (0-1); LYMPHOCYTES ABSOLUTE AUTO 1.34 K/mm3 (0.84-5.20); LYMPHOCYTES PERCENT AUTO 14 % (21-46); MONOCYTES ABSOLUTE AUTO 0.84 K/mm3 (0.16-1.47); MONOCYTES PERCENT AUTO 9 % (4-13); Mean Corpuscular HGB 27.8 pg (26.0-34.0); Mean Corpuscular HGB Conc 32.5 g/dL (31.5-36.5); Mean Platelet Volume 9.8 fL (9.1-12.4); NEUTROPHILS PERCENT AUTO 75 % (41-73); NRBC ABSOLUTE 0.13 K/mm3 (0.00-0.02); NRBC Auto 1.3 /100 WBC (0.0-0.2); Platelet Count 224 K/mm3 (150-400); RDW Coefficient Variation 17.1 % (11.7-14.2); RDW Standard Deviation 51.6 fL (35.1-46.3); White Blood Cell Count 9.78 K/mm3 (4.00-11.30)
[2022-08-21 03:43] LABS: Mean Corpuscular Volume 86 fL (80-100)
[2022-08-21 03:57] LABS: Bun/Creatinine Ratio 43.6 (12.0-20.0); Creatinine, Blood 1.1 mg/dL (0.40-1.00); Magnesium, Blood 2.2 mg/dL (1.6-2.4); Potassium, Blood 3.6 mmol/L (3.5-5.5)
--- NOTE | 2022-08-21 05:50 | NUR ---
SHIFT SUMMARY: NO ACUTE CHANGES THIS SHIFT. PT HAS BEEN IN AND OUT OF SLEEP THROUGHOUT THE NIGHT. PUREWICK REMAINS IN PLACE WITH 1550 OUTPUT THIS SHIFT. PT REMAINS A&O X 3-4 AND FOLLOWING COMMANDS THROUGHOUT THE SHIFT. PT O2 REQUIRMENTS TITRATED UP TO 5L VIA NC TO MAINTAIN O2 LEVELS 94<. PT BP STABLE THROUGHOUT THE SHIFT. HGB THIS MORNING AT 7.5. WILL CONTINUE TO MONITOR UNTIL ONCOMING RN ARRIVES.
--- NOTE | 2022-08-21 07:00 | NUR ---
ASSUME CARE: I have assumed care of this patient.
[2022-08-21 07:02] LABS: International Normalized Ratio 1.42; Prothrombin Time Results 14.6 Sec (9.7-11.5)
--- NOTE | 2022-08-21 11:45 | NUR ---
PROVIDER UPDATE: Dr Boudreaux called and notified of pt's ongoing complaints of anxiety. RN has attempted therapeutic communication, distraction, and redirection with no success. Telephone order for ativan.
[2022-08-21 12:22] LABS: BASOPHILS ABSOLUTE AUTO 0.04 K/mm3 (0.00-0.23); BASOPHILS PERCENT AUTO 0 % (0-2); EOSINOPHILS ABSOLUTE AUTO 0.25 K/mm3 (0.00-0.68); EOSINOPHILS PERCENT AUTO 2 % (0-6); Hematocrit 25.3 % (33.0-51.0); Hemoglobin 7.8 g/dL (11.5-16.0); IMMATURE GRAN ABSOLUTE AUTO 0.09 K/mm3 (0.00-0.10); IMMATURE GRAN PERCENT AUTO 1 % (0-1); LYMPHOCYTES ABSOLUTE AUTO 1.26 K/mm3 (0.84-5.20); LYMPHOCYTES PERCENT AUTO 11 % (21-46); MONOCYTES ABSOLUTE AUTO 1.06 K/mm3 (0.16-1.47); MONOCYTES PERCENT AUTO 9 % (4-13); Mean Corpuscular HGB 27.2 pg (26.0-34.0); Mean Corpuscular HGB Conc 30.8 g/dL (31.5-36.5); Mean Corpuscular Volume 88 fL (80-100); Mean Platelet Volume 9.9 fL (9.1-12.4); NEUTROPHILS ABSOLUTE AUTO 9.19 K/mm3 (1.96-9.15); NEUTROPHILS PERCENT AUTO 77 % (41-73); NRBC ABSOLUTE 0.11 K/mm3 (0.00-0.02); NRBC Auto 0.9 /100 WBC (0.0-0.2); Platelet Count 239 K/mm3 (150-400); RDW Coefficient Variation 17.2 % (11.7-14.2); RDW Standard Deviation 52.9 fL (35.1-46.3); Red Blood Cell Count 2.87 M/mm3 (3.80-5.20); White Blood Cell Count 11.89 K/mm3 (4.00-11.30)
--- NOTE | 2022-08-21 13:09 | NUR ---
PT TO OR FOR EGD
--- NOTE | 2022-08-21 13:27 | NUR ---
BACK TO ICU ROOM egd canceled
[2022-08-21] MEDS ORDERED: ALLO300 PO (14:35)
[2022-08-21] MEDS ORDERED: BUME2 PO (14:36)
[2022-08-21] MEDS ORDERED: ESCI20 PO (14:37)
[2022-08-21] MEDS ORDERED: FERROUS GLUCON324 M2 PO (14:41)
[2022-08-21] MEDS ORDERED: LOSA50 PO (14:42)
[2022-08-21] MEDS ORDERED: METF500 PO (14:43)
[2022-08-21] MEDS ORDERED: SPIR25 PO (14:45)
[2022-08-21] MEDS ORDERED: ROCKLATAN 0.022.5 M1 BOTHEYES (14:46)
[2022-08-21] MEDS ORDERED: B-121000 MC3 PO (14:47)
[2022-08-21] MEDS ORDERED: MERIBIN5 MG PO (14:49)
[2022-08-21] MEDS ORDERED: CILO100 PO (14:50)
[2022-08-21] MEDS ORDERED: VITAMIN D5000 UNIT PO (14:50)
--- NOTE | 2022-08-21 14:55 | NUR ---
PROVIDER UPDATE: Dr Boudreaux called and notified of pt's home medication, Escitalopram, and other updated home meds. Telephone order for home dose of escitalopram.
--- NOTE | 2022-08-21 18:15 | NUR ---
SHIFT/TRANSFER SUMMARY: pt transferred from ICU 6 to PCU 8. NEURO: pt a/o x 3. often forgetful of time. Moves all extremities. CARDIAC: junctional tachycardia. stable BPs RESPIRATORY: 3L NC. Clear/dim GI/: No BM. Purewick in place and repositioned q2 hours. EGD was scheduled for today, but was canceled as anesthesia requested ECHO. Rescheduled for tomorrow. Pt tolerated clear liquid dinner well. PSYCH/SOCIAL: pt had several reports of anxiety this morning. one time dose of ativan was given with strong effect. Home medication list since updated to add pt's lexapro.
--- NOTE | 2022-08-21 18:40 | NUR ---
PLEASE SEE SHIFT ASSESSMENT FOR END OF SHIFT, NO CHANGE FROM ASSESSMENT
[2022-08-22 04:24] LABS: BASOPHILS ABSOLUTE AUTO 0.05 K/mm3 (0.00-0.23); BASOPHILS PERCENT AUTO 1 % (0-2); EOSINOPHILS PERCENT AUTO 2 % (0-6); Hematocrit 24.5 % (33.0-51.0); Hemoglobin 7.7 g/dL (11.5-16.0); IMMATURE GRAN ABSOLUTE AUTO 0.06 K/mm3 (0.00-0.10); IMMATURE GRAN PERCENT AUTO 1 % (0-1); LYMPHOCYTES ABSOLUTE AUTO 1.38 K/mm3 (0.84-5.20); LYMPHOCYTES PERCENT AUTO 16 % (21-46); MONOCYTES ABSOLUTE AUTO 0.85 K/mm3 (0.16-1.47); MONOCYTES PERCENT AUTO 10 % (4-13); Mean Corpuscular HGB Conc 31.4 g/dL (31.5-36.5); Mean Corpuscular Volume 89 fL (80-100); Mean Platelet Volume 9.9 fL (9.1-12.4); NEUTROPHILS ABSOLUTE AUTO 6.07 K/mm3 (1.96-9.15); NEUTROPHILS PERCENT AUTO 71 % (41-73); NRBC ABSOLUTE 0.04 K/mm3 (0.00-0.02); NRBC Auto 0.5 /100 WBC (0.0-0.2); Platelet Count 248 K/mm3 (150-400); RDW Coefficient Variation 17.1 % (11.7-14.2); RDW Standard Deviation 53.9 fL (35.1-46.3); Red Blood Cell Count 2.75 M/mm3 (3.80-5.20); White Blood Cell Count 8.61 K/mm3 (4.00-11.30)
[2022-08-22 04:41] LABS: International Normalized Ratio 1.6; Prothrombin Time Results 16.3 Sec (9.7-11.5)
[2022-08-22 04:48] LABS: Calcium, Blood 8.5 mg/dL (8.5-10.1); Creatinine, Blood 1.03 mg/dL (0.40-1.00); Potassium, Blood 3.9 mmol/L (3.5-5.5)
--- NOTE | 2022-08-22 06:56 | NUR ---
SHIFT SUMMARY PT IS A/Ox2-3 AND FOLLOWS DIRECTIONS FROM STAFF. NO N/V/D T/O THE SHIFT OR ANY MORE SIGNS OF COFFEE GROUND EMESIS. H&H HAS STABLIZED DURING THE NIGHT WITH NO FURTHER BLOOD PRODUCT INTEVENTION NEEDED AT THIS TIME. PT IS SUPPOSE TO GO FOR A EGD THIS AM TO IDENTIFY SOURCE OF THE BLEED. MAINTAINS SPO2 >94% ON 3L NC WITH NO SOB OR DYSPNEA NOTED WHILE AT REST. BS HYPERACTIVE WITH PT REPORTING TENDERNESS IN BOTH UPPER QUADRANTS WITH PALPATION. PUREWICK IN PLACE AND CONNECTED TO CONTIOUS SUCTION. PT RUNNING IN JUCTIONAL/AFIB RHYTHM T/O THE NIGHT BUT IS ASYMPTOMATIC AT THIS TIME. VSS, NADN T/O THE SHIFT
--- NOTE | 2022-08-22 07:37 | NUR ---
Received report fran Davenport RN. Patient sleeping and when arouses moans and currently not able to makes sense. She is on 4L O2 via NC and sats 99%. She has bilateral 20ga IV in R and LAC. RAC infusing Protonix at 10 ml/hr. She has attends in place and purewick to suction. She is in a junctional rhythm low 100's. CBG's Q6.Plan to scope around 1000.
--- NOTE | 2022-08-22 10:00 | NUR ---
Patient continues to rest and refuse to take PO meds and calling Dr for IV Potassium. VSS. No significat changes with patient. Speech mostly clear and able to understand needs. Protonix continues to infuse at 10 ml/hr.
--- NOTE | 2022-08-22 10:30 | NUR ---
Patient left at 0815 to scope and remains gone, no current updates.
--- NOTE | 2022-08-22 11:27 | NUR ---
Day surgery here to take patient for EGD. Vini disconnected and slid to surgery niko. Hari continues with patient.
[2022-08-22 11:58] LABS: PCO2 Arterial 58.4 mmHg (35-45); pH Blood Arterial 7.37 (7.35-7.45)
--- NOTE | 2022-08-22 12:05 | NUR ---
VITALS TAKEN IN DAY SURGERY, ANESTHESIOLOGIST DR HOOD AT BEDSIDE, ORDERED ABG. RESPIRATORY THERAPIST KAVON ABG AND DECISION WITH DR WHITESIDE AND DR HOODL IS TO POSTPONE PROCEDURE FOR NOW, PT RETURNED TO ROOM. PLAN TO START CPAP. REPORT TO MINA LYNCH RN.
--- NOTE | 2022-08-22 12:19 | NUR ---
Patient was returned to room as anesthesia felt she was resp comprimised and had ABG drawn. Patient in room with CPAP 10/5 and 2L bleed in per RT. She awakens to verbal stimuli when back to room and is able to answer questions. Protontix placed back on and infusing 10 ml/hr. Attends in place. New line on bed. Patient audra to sleep. Unsure when redoing scope.
--- NOTE | 2022-08-22 14:00 | NUR ---
patient awakened easily and sat up and took medication with apples sauce, we had short conversation. I returned her to CPAP. RT came and made adjustments to settings 12/5 and stopped bleed in. Moved UE but still very weak. After applying CPAP went back to resting. Changed attends. Protonix still infusing at 10 ml/hr.
[2022-08-22 14:11] LABS: PCO2 Arterial 59.4 mmHg (35-45); PO2 Arterial 116 mmHg (80-100); pH Blood Arterial 7.36 (7.35-7.45)
--- NOTE | 2022-08-22 17:00 | NUR ---
Patient awake and alert and roommate at bedside having clear conversations. CPAP removed and she is on bedpan. Called Dr for bowel med. She is on 2L O2 via NC and sats >90%. Protonix infusing at 10 ml/hr. Potassium IV done and flushed. Patient denies any current needs. She remains NPO as we were awaiting what GI was going to do.
--- NOTE | 2022-08-22 18:14 | NUR ---
Patient had a little success with bedpan, three small stools very black no kadie blood. NC at 2L O2 and sats >90%. Calling Dr for diet if not doing scope until tomorrow. Got order for colace for patient.
--- NOTE | 2022-08-22 21:13 | NUR ---
CALL TO DR MARQUEZ THIS RN CALLS TO DR MARQUEZ EXPRESSING CONCERN FOR SOME POSSIBLE L SIDED FACIAL DROOP AND L SIDED WEAKNESS. PT IS OVERALL VERY WEAK AND SOMNOLENT BUT ANSWERS QUESTIONS FOR THIS RN. PT KNOWS SHE IS IN THE HOSPITAL, DOES NOT KNOW THE YEAR, THINKS SHE IS IN [place]. STATES SHE DOES NOT FEEL GOOD AND DOES NOT KNOW WHY. WEAK PROFESSIONAL NURSE STRENGTHS.
[2022-08-22 21:58] LABS: Base Excess Venous 7.2 mmol/L; Bicarbonate Venous 30.3 mmol/L (24.0-30.0); PCO2 Venous 50.2 mmHg (38-42); pH Blood Venous 7.41 (7.34-7.37)
[2022-08-22 22:04] LABS: BASOPHILS ABSOLUTE AUTO 0.03 K/mm3 (0.00-0.23); BASOPHILS PERCENT AUTO 0 % (0-2); EOSINOPHILS ABSOLUTE AUTO 0.17 K/mm3 (0.00-0.68); EOSINOPHILS PERCENT AUTO 2 % (0-6); Hemoglobin 7.4 g/dL (11.5-16.0); IMMATURE GRAN ABSOLUTE AUTO 0.04 K/mm3 (0.00-0.10); IMMATURE GRAN PERCENT AUTO 1 % (0-1); LYMPHOCYTES ABSOLUTE AUTO 1.17 K/mm3 (0.84-5.20); LYMPHOCYTES PERCENT AUTO 17 % (21-46); MONOCYTES PERCENT AUTO 9 % (4-13); Mean Corpuscular HGB 27.9 pg (26.0-34.0); Mean Corpuscular HGB Conc 30.8 g/dL (31.5-36.5); Mean Corpuscular Volume 91 fL (80-100); Mean Platelet Volume 9.9 fL (9.1-12.4); NEUTROPHILS ABSOLUTE AUTO 4.98 K/mm3 (1.96-9.15); NEUTROPHILS PERCENT AUTO 71 % (41-73); NRBC ABSOLUTE 0.02 K/mm3 (0.00-0.02); NRBC Auto 0.3 /100 WBC (0.0-0.2); Platelet Count 223 K/mm3 (150-400); RDW Coefficient Variation 16.9 % (11.7-14.2); RDW Standard Deviation 53.6 fL (35.1-46.3); Red Blood Cell Count 2.65 M/mm3 (3.80-5.20); White Blood Cell Count 6.99 K/mm3 (4.00-11.30)
[2022-08-22 22:05] LABS: Source, Urine Clean Catch
[2022-08-22 22:08] LABS: Bilirubin, Urine Neg (Neg); Blood, Urine 3+ (Neg); Glucose Qualitative, Urine Neg (Neg); Ketones, Urine Neg (Neg); Leukocyte Esterase, Urine 3+ (Neg); Nitrite, Urine Pos (Neg); Protein, Urine 3+ (Neg); Specific Gravity, Urine 1.015 (1.003-1.022); Urobilinogen, Urine NORM (Normal)
[2022-08-22 22:29] LABS: Bun/Creatinine Ratio 27.8 (12.0-20.0); Calcium, Blood 8.3 mg/dL (8.5-10.1); Creatinine, Blood 0.97 mg/dL (0.40-1.00); Potassium, Blood 4.2 mmol/L (3.5-5.5); Thyroid Stimulating Hormone 3.14 uIU/mL (0.360-4.800)
[2022-08-22 22:37] LABS: Appearance, Urine Cloudy (Clear); Color, Urine Yellow (P-Yellow)
[2022-08-22 22:49] LABS: White Blood Cells, Urine 50-100 /hpf (0-5)
[2022-08-22 22:50] LABS: Bacteria Many /hpf; Squamous Epithelial Cells Rare /hpf (Few); Transitional Epithelial Cells Rare /hpf (0-Rare)
--- NOTE | 2022-08-23 01:29 | NUR ---
PT UPDATE PT APPEARS TO SLEEP WHILE ON BIAP 20/06 WITH 2 L O2 BLEED IN AT THIS TIME. PRESSURE SETTINGS INCREASED AFTER SHARRON RT CALLED TO BEDSIDE D/T SEVERAL EPISODES OF PT DESATTING TO 71% AND NOT RECOVERING BACK TO 90'S. PT HAS SOME BRIEF PERIODS OF SATTING DOWN TO 88% BUT QUICKLY RECOVERS BACK UP TO 90'S WHILE ON BIPAP AT THIS TIME. PT IS CURRENTLY LAYING ON R SIDE AFTER ASSISTING THIS RN TO REPOSTION HERSELF, VISIBLY REACHES HER L ARM OVER, MOVEMENT NOTED IN ALL EXTREMITIES AND WEAK T/O. PT DENIES NEEDS BUT MENTIONS SOMETHING ABOUT "SEEING TREES". THIS RN ATTEMPTED TO CLARIFY BUT MAY HAVE MISUNDERSTOOD WHAT PT WAS TRYING TO SAY D/T MASK. TRIED TO CLARIFY WITH MASK OFF BRIEFLY. PT REPEATED SHE THOUGHT SHE SAW "TREES". PT BACK TO SLEEP.
[2022-08-23 05:50] LABS: International Normalized Ratio 1.85; Prothrombin Time Results 18.7 Sec (9.7-11.5)
--- NOTE | 2022-08-23 07:20 | NUR ---
SHIFT SUMMARY PT REMAINS SOMNOLENT THROUGH MOST OF SHIFT, AWAKENS WITH LOUD SPEECH AND THIS RN GENTLE TOUCH TO ARM OR CHEST TO AWAKEN PT. PT GIVEN BREAK OFF BIPAP THIS AM PER REQUEST D/T PAIN TO BRIDGE OF NOSE DESPITE GEL IN PLACE. PT SATS 98-99% THIS AM ON 1 L O2 VIA NC. SEVERAL EPISODES OF SPO2 DROPPING LATER IN SHIFT AND BIPAP SETTINGS INCREASED TO ACCOMODATE APNEIC EPISODES. PT SATS MAINTAIN >95%. PT C/O NAUSEA T/O SHIFT, RELIEVED WITH ZOFRAN PRN. C/O UPPER ABD PAIN, ABD TENDER TO TOUCH WITH SOME MODERATE DISTENTION. NO SIGNIFICANT MELENA, BLACK, OR SABINA BLOODY STOOL NOTED THIS SHIFT OTHER THAN SOME DARK BROWN-BLACK SMEAR WITH ATTENDS CHANGE. PT AWAKENS MORE THIS AM AND IS MORE ALERT, CBG CHECKED THIS AM AND WAS 70'S ON RECHECK, PT'S CBG IS 65. UNABLE TO REACH PROVIDER THIS AM, ADMIN 1/2 AMP OF D50.
[2022-08-23 08:23] LABS: Base Excess Venous 8.5 mmol/L; Bicarbonate Venous 31.5 mmol/L (24.0-30.0); PCO2 Venous 51.3 mmHg (38-42); pH Blood Venous 7.42 (7.34-7.37)
[2022-08-23 08:56] LABS: Hematocrit 23.8 % (33.0-51.0); Hemoglobin 7.3 g/dL (11.5-16.0)
--- NOTE | 2022-08-23 17:25 | NUR ---
SHIFT SUMMARY PT MORE ALERT THIS EVENING AND OPENING HER EYES. PT ABLE TO TOLERATE HER CLEAR LIQUIDS FOR LUNCH. VS STABLE. O2 SATS REMAIN ABOVE 90% ON 2L NC. PT PROVIDED BED BATH TODAY. PT INCONTINENT OF URINE ALL SHIFT. PT TAKEN TO DAY SURGERY AT THIS TIME FOR SCOPE. WILL AWAIT RETURN.
--- NOTE | 2022-08-23 17:40 | NUR ---
08/23/[address] WALTON; SEE ANESTHESIA RECORDS.
[2022-08-24 06:05] LABS: Hematocrit 26.3 % (33.0-51.0); Hemoglobin 7.9 g/dL (11.5-16.0); Mean Corpuscular HGB 27.9 pg (26.0-34.0); Mean Corpuscular Volume 93 fL (80-100); Mean Platelet Volume 10.1 fL (9.1-12.4); NRBC ABSOLUTE 0.02 K/mm3 (0.00-0.02); NRBC Auto 0.3 /100 WBC (0.0-0.2); Platelet Count 238 K/mm3 (150-400); RDW Coefficient Variation 17.2 % (11.7-14.2); RDW Standard Deviation 54.5 fL (35.1-46.3); Red Blood Cell Count 2.83 M/mm3 (3.80-5.20); White Blood Cell Count 6.65 K/mm3 (4.00-11.30)
[2022-08-24 06:19] LABS: Bun/Creatinine Ratio 21.2 (12.0-20.0); Calcium, Blood 8.9 mg/dL (8.5-10.1); Creatinine, Blood 0.99 mg/dL (0.40-1.00); Potassium, Blood 4.1 mmol/L (3.5-5.5)
[2022-08-24 06:47] LABS: International Normalized Ratio 2.15; Prothrombin Time Results 21.5 Sec (9.7-11.5)
--- NOTE | 2022-08-24 07:35 | NUR ---
SHIFT SUMMARY PT AOX3 T/O SHIFT, MOVES ALL 4 EXTREMITIES EQUALLY, AWAKENS EASILY FROM SLEEP. BREATHING TACHYPNEIC, REQUESTED TO TAKE OFF CPAP IN EARLY AM, SWITCHED TO 2 L VIA NC. SATS >96%. DENIED ABD PAIN OR TENDERNESS OVER ABD T/O NIGHT. C/O CONTINUED FEELING OF CONSTIPATION THIS AM, GIVEN PRUNE JUICE, UP TO COMMODE THIS AM JUST PRIOR TO SHIFT CHANGE, C/O FEELING LIGHTHEADED WHILE ON COMMODE. BP READS LOW W/SYSTOLIC IN 80'S AND MAP OF 63. MEDIUM SIZED FORMED DARK BROWN-BLACK STOOL IN COMMODE.
--- NOTE | 2022-08-24 17:59 | NUR ---
ASSUMED CARE OF PT TODAY AT 0700. NO FURTHER EPISODES OF PRE SYNCOPE NOTED. PT OOB TO COMMODE W/O SYMPTOMS, 2P ASSIST. PT/OT EVAL ORDERED TODAY, PT DECLINED TO WORK WITH THEM TODAY. SEE DOCUMENTED VS AND ASSESSMENT. PT APPEARS MORE ALERT AND TALKATIVE THIS EVENING VS THIS MORNING. NO OTHER CHANGES TO PT CONDITION NOTED, PT USES CALL LIGHT FOR NEEDS, CALL LIGHT IN REACH, WILL CONTINUE TO MONITOR AND GIVE REPORT TO NOC SHIFT RN.
--- NOTE | 2022-08-24 23:03 | NUR ---
PT UPDATE PT UP TO BEDSIDE COMMODE WITH X2 PERSON ASSIST WITH GAIT BELT AND WALKER. PT DENIES LIGHTHEADEDNESS. HAD URGENT SENSATION TO HAVE A BM, WAS GIVEN SUPPOSITORY PER OBTAINED ORDER FROM DR MARQUEZ PER THIS RN REQUEST D/T HARD STOOLS AND PT STATING NEED TO HAVE A BM W/C/O OF ABD PAIN AND NAUSEA. PT HAD BEEN C/O NAUSEA CONTINUING FOLLOWING DOSE OF ZOFRAN EARLIER, AFTER REGLAN DOSE GIVEN, PT IS NOW DENYING ANY NAUSEA. PT DENIES ANY ABD PAIN AT THIS TIME.
[2022-08-25 04:47] LABS: Hematocrit 24.1 % (33.0-51.0); Hemoglobin 7.3 g/dL (11.5-16.0); Mean Corpuscular HGB Conc 30.3 g/dL (31.5-36.5); Mean Corpuscular Volume 92 fL (80-100); Platelet Count 214 K/mm3 (150-400); RDW Coefficient Variation 16.9 % (11.7-14.2); Red Blood Cell Count 2.61 M/mm3 (3.80-5.20); White Blood Cell Count 6.24 K/mm3 (4.00-11.30)
[2022-08-25 05:21] LABS: Calcium, Blood 8.7 mg/dL (8.5-10.1); Creatinine, Blood 0.95 mg/dL (0.40-1.00); Potassium, Blood 3.9 mmol/L (3.5-5.5)
--- NOTE | 2022-08-25 07:21 | NUR ---
SHIFT SUMMARY PT AOX3 T/O SHIFT, DENIES CP T/O NIGHT. HR 60'S-80'S ACCELERATED JUNCTIONAL RHYTHM OCCASIONALLY PACED. DENIES SOB. TACHYPNEIC AND SHALLOW BREATHING. PT STILL APPEARS PALE, C/O SOME UPPER ABD PAIN THAT SEEMS MORE TENDER IN R SIDE ABD. RELIEVED WITH GI COCKTAIL, NAUSEA FOLLOWING PIPE THREADING MACHINE OPERATOR AND W/ABD PAIN RELIEVED WITH ZOFRAN/REGLAN. PT C/O NEED TO HAVE A BM T/O NIGHT. SEVERAL BLACK STOOLS, FIRST TWO FORMED, LAST SOFTER FOLLOWING SUPPOSITORY. DOSED WITH 1 GM OF ROCEPHIN FOR CONTINUED TX OF UTI. C/O VAGINAL ITCHING THIS AM.
[2022-08-25 10:25] LABS: International Normalized Ratio 2.11; Prothrombin Time Results 21.1 Sec (9.7-11.5)
--- NOTE | 2022-08-25 18:29 | NUR ---
PT A/O X3, SHE IS SLEEPY. PT WITH DARK GREEN TO BROWN STOOLS TODAY. PT DENIES ABD PAIN, DENIES N/V. PT'S ROOMATE IN THIS EVENING BECAME VERBALLY AGGRESSIVE WITH STAFF IN THE [place], INSTRUCTOR BUS TROLLEY AND TAXI WAS IN TO ADDRESS ROOM MATE'S CONCERNS. PT 1 PERSON FWW c GAIT BELT TRANSFER WHICH SHE TOLERATES WELL. NO SYNCOPAL EVENTS DURING THIS SHIFT. DR FRANK IS UPDATED. VSS. PT DOES NOT TOELRATE BP BEING TAKEN WELL, SHE BECOMES ANXIOUS AT TIMES DURING BP ASSESSMENT. PHARMACY HAS BEGAN MANAGING COUMADIN.
[2022-08-26 04:47] LABS: International Normalized Ratio 1.76; Prothrombin Time Results 17.8 Sec (9.7-11.5)
--- NOTE | 2022-08-26 06:09 | NUR ---
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 PT MORE ALERT AND INTERACTIVE WITH CARE. VSS. SHE IS A SBA TO BSC WITH FWW. NO EVENTS ON TELE. DOES HAVE SOME TACHYCARDIA WHEN GETTING UP BUT PT DENIES DIZZINESS ON STANDING. SHE HAS HAD BROWN STOOL. PUREWICK IN PLACE THROUGHOUT THE NIGHT FOR INCONTINENCE. PT HAS HAD DIFFICULTY SLEEPING THROUGHOUT THE NIGHT DUE TO BEING EXCITED ABOUT GOING HOME.
[2022-08-26 08:24] LABS: Hematocrit 24.6 % (33.0-51.0); Hemoglobin 7.2 g/dL (11.5-16.0)
[2022-08-26] MEDS ORDERED: CITALOPRAM HBR10 MG PO (15:41)
--- NOTE | 2022-08-26 16:45 | NUR ---
THIS RN TO ROOM TO D/C PT, WHILE ATTEMPTING TO DRESS PT HER CAREGIVER/ROOM MATE "RENO-SPARKS" CALLED PT'S CELL PHONE AND WAS PUT ON SPEAK PHONE. "RENO-SPARKS" BEGAN IMMEDIATELY SCREAMING AT THIS RN STATING THAT PT WAS TO BE D/C THIS AM SHE WAS TOLD BY THE PREVIOUS NOC SHIFT RN. SHE CONTINUES TO BE HOSITLE AND DEMANDS THAT PT BE RELEASED NOW, SHE IS UPDATED THAT THE PT IS IN THE PROCESS OF D/C AT THIS, SHE CONTINUES TO ESCALATE STATING THAT THE DR CALLED HER THIS AM AND TOLD HER SHE WOULD BE D/C THIS AM, WHEN SPOKE WITH DR FRANK IT WAS CONFIRMED THAT HE HAD IN FACT NOT SPOKEN TO THE CAREGIVER THIS AM. "RENO-SPARKS" DEMANDS AGAIN TO KNOW THE EXACT TIME OF D/C WHEN TOLD AN HOUR EXPRESSED THAT WOULD NOT BE ACCEPTABLE TO HER, PT IS CURRENTLY ON COMMODE HAVING A BM WHICH IS SLOWING THE D/C. CASEWORKER INTAKE GABE IS CALLED TO ROOM TO EXPEDITE D/C PROCESS, "RENO-SPARKS" IS NOTIFIED TO COME NOW TO PICK PT UP. PT IS TAKEN TO MEET RENO-SPARKS AT THE FRONT ENTRANCE, RENO-SPARKS ARRIVES TO DESK AND BEGINS CONFRONTATION WITH STAFF, THE REASON FOR HER CONFRONTATION OR BEHAVIOR IS NOT IMMEDIATELY EVIDENT SHE SCREAMS SHE LEAVES THE UNIT. THIS RN TRIES TO UPDATE RENO-SPARKS THAT A PRESCRIPTION FOR ANTIBIOTIC HAS BEEN FAXED TO [facility] BUT SHE REFUSED THE EDUCATION AND LEFT.
== END 2022-08-26 16:39 | disposition home or self-care (01) | DRG 378 ==
LOC: ER 03:23 → PCU 05:44 → ICUW 05:44 → ICUE 05:44 → PCU 08-21 17:51
PROVIDERS: Emergency Medicine; Family Medicine; Internal Medicine; Student in an Organized Health Care Education/Training Program; ADMIT Internal Medicine
PROC: 30233N1 Transfusion of Nonautologous Red Blood Cells into Peripheral Vein, Percutaneous Approach (ICD-10-PCS; principal; 2022-08-20)
PROC: 30233L1 Transfusion of Nonautologous Fresh Plasma into Peripheral Vein, Percutaneous Approach (ICD-10-PCS; 2022-08-20)
PROC: 30233K1 Transfusion of Nonautologous Frozen Plasma into Peripheral Vein, Percutaneous Approach (ICD-10-PCS; 2022-08-20)
PROC: 0DJ08ZZ Inspection of Upper Intestinal Tract, Via Natural or Artificial Opening Endoscopic (ICD-10-PCS; 2022-08-23)
DX: K92.2 Gastrointestinal hemorrhage, unspecified (principal); G93.49 Other encephalopathy; I48.19 Other persistent atrial fibrillation; I67.89 Other cerebrovascular disease; I10 Essential (primary) hypertension; E03.9 Hypothyroidism, unspecified; G47.33 Obstructive sleep apnea (adult) (pediatric); I48.91 Unspecified atrial fibrillation; F03.90 Unspecified dementia, unspecified severity, without behavioral disturbance, psychotic disturbance, mood disturbance, and anxiety; I49.5 Sick sinus syndrome; I95.9 Hypotension, unspecified; E11.51 Type 2 diabetes mellitus with diabetic peripheral angiopathy without gangrene; K21.9 Gastro-esophageal reflux disease without esophagitis; E11.40 Type 2 diabetes mellitus with diabetic neuropathy, unspecified; G31.84 Mild cognitive impairment of uncertain or unknown etiology; M35.3 Polymyalgia rheumatica; R29.6 Repeated falls; Z98.49 Cataract extraction status, unspecified eye; Z87.891 Personal history of nicotine dependence; Z88.6 Allergy status to analgesic agent; Z88.5 Allergy status to narcotic agent; Z95.0 Presence of cardiac pacemaker; Z79.01 Long term (current) use of anticoagulants; Z95.2 Presence of prosthetic heart valve; Z79.4 Long term (current) use of insulin; Z79.84 Long term (current) use of oral hypoglycemic drugs; Z79.899 Other long term (current) drug therapy; Z88.8 Allergy status to other drugs, medicaments and biological substances; Z90.710 Acquired absence of both cervix and uterus; Z98.890 Other specified postprocedural states
CPT/HCPCS: 36415; 36430; 36600; 70450; 80048; 80053; 81001; 82272; 82803; 82947; 83690; 83735; 84443; 84484; 85014; 85018; 85025; 85027; 85610; 86850; 86900; 86901; 86923; 87077; 87086; 87186; 93005; 93010; 93306; 94660; 94760; 94762; 96374; 97110; 97162; 97165; 97530; 98960; 99285-25; A9270; C9113; J0171; J0696; J1430; J1815; J1940; J2001; J2060; J2405; J2704; J2765; J3430; J3480; J7030; J7040; J7050; J7120; P9016; P9059

== ENCOUNTER → 2022-09-02 | Outpatient (CLI) | payer MEDICARE ==
[~2022-09-02] MED LIST changes: +Altoprev40 MG PO; +B-121000 MC3 PO; +CILO100 PO; +CILOSTAZOL50 M1 PO; +CITALOPRAM HBR10 MG PO; +DONEPEZIL HCL5 M2 PO; +MERIBIN5 MG PO; +VITAMIN D5000 UNIT PO
[2022-09-02 18:19] LABS: BASOPHILS ABSOLUTE AUTO 0.04 K/mm3 (0.00-0.23); BASOPHILS PERCENT AUTO 1 % (0-2); EOSINOPHILS ABSOLUTE AUTO 0.16 K/mm3 (0.00-0.68); EOSINOPHILS PERCENT AUTO 3 % (0-6); Hematocrit 27.8 % (33.0-51.0); Hemoglobin 7.9 g/dL (11.5-16.0); IMMATURE GRAN ABSOLUTE AUTO 0.01 K/mm3 (0.00-0.10); IMMATURE GRAN PERCENT AUTO 0 % (0-1); LYMPHOCYTES ABSOLUTE AUTO 1.03 K/mm3 (0.84-5.20); LYMPHOCYTES PERCENT AUTO 18 % (21-46); MONOCYTES ABSOLUTE AUTO 0.42 K/mm3 (0.16-1.47); MONOCYTES PERCENT AUTO 7 % (4-13); Mean Corpuscular HGB 26.2 pg (26.0-34.0); Mean Corpuscular HGB Conc 28.4 g/dL (31.5-36.5); Mean Corpuscular Volume 92 fL (80-100); Mean Platelet Volume 10.5 fL (9.1-12.4); NEUTROPHILS ABSOLUTE AUTO 4.22 K/mm3 (1.96-9.15); NEUTROPHILS PERCENT AUTO 72 % (41-73); Platelet Count 273 K/mm3 (150-400); RDW Standard Deviation 53.3 fL (35.1-46.3); Red Blood Cell Count 3.02 M/mm3 (3.80-5.20); White Blood Cell Count 5.88 K/mm3 (4.00-11.30)
[2022-09-02 18:46] LABS: Percent Saturation 5.3 % (15.0-50.0)
[2022-09-02 18:48] LABS: Albumin, Blood 3.3 g/dL (3.4-5.0); Bilirubin, Total 0.5 mg/dL (0.1-1.0); Bun/Creatinine Ratio 15.6 (12.0-20.0); Calcium, Blood 8.7 mg/dL (8.5-10.1); Creatinine, Blood 0.9 mg/dL (0.40-1.00); Globulin, Blood 3.3 g/dL (2.2-4.0); Potassium, Blood 3.7 mmol/L (3.5-5.5); Total Protein, Blood 6.6 g/dL (6.4-8.2)
== END | disposition home or self-care (01) ==
LOC: LAB SHORT 15:50 → LAB 15:50
PROVIDERS: Nurse Practitioner Family
DX: D64.9 Anemia, unspecified (principal)
CPT/HCPCS: 80053; 82728; 83540; 83550; 85025

== ENCOUNTER 2022-12-06 18:18 | Inpatient (IN) | payer MEDICARE ==
[~2022-12-06] VITALS: Ht 165.1 cm; Wt 89.5 kg
[~2022-12-06 18:18] MED LIST changes: -ESTRADIOL42.5 GM; -SULFAMETHOXAZO1 EAC1; -ZINC15 PO
[2022-12-06] MEDS ORDERED: ESCI20 PO (19:35)
[2022-12-06] MEDS ORDERED: GABA300 PO (19:37)
[2022-12-06] MEDS ORDERED: MERIBIN5 MG PO (19:40)
[2022-12-06] MEDS ORDERED: ZINC15 PO (19:41)
[2022-12-06 22:18] LABS: Hemoglobin 4.7 g/dL (11.5-16.0)
[2022-12-06 22:21] LABS: Hematocrit 17.5 % (33.0-51.0)
[2022-12-06] MEDS ORDERED: ESTRADIOL42.5 GM (22:44)
[2022-12-06] MEDS ORDERED: SULFAMETHOXAZO1 EAC1 (22:47)
[2022-12-07 01:01] LABS: Bun/Creatinine Ratio 22.5 (12.0-20.0); Calcium, Blood 8.1 mg/dL (8.5-10.1); Creatinine, Blood 1.29 mg/dL (0.40-1.00)
[2022-12-07 01:11] LABS: International Normalized Ratio 3.96
[2022-12-07 04:03] LABS: BASOPHILS ABSOLUTE AUTO 0.03 K/mm3 (0.00-0.23); BASOPHILS PERCENT AUTO 0 % (0-2); EOSINOPHILS ABSOLUTE AUTO 0.12 K/mm3 (0.00-0.68); EOSINOPHILS PERCENT AUTO 2 % (0-6); Hematocrit 19.6 % (33.0-51.0); IMMATURE GRAN ABSOLUTE AUTO 0.04 K/mm3 (0.00-0.10); IMMATURE GRAN PERCENT AUTO 1 % (0-1); LYMPHOCYTES ABSOLUTE AUTO 1.02 K/mm3 (0.84-5.20); LYMPHOCYTES PERCENT AUTO 14 % (21-46); MONOCYTES PERCENT AUTO 8 % (4-13); Mean Corpuscular HGB 26.9 pg (26.0-34.0); Mean Corpuscular HGB Conc 28.6 g/dL (31.5-36.5); Mean Corpuscular Volume 94 fL (80-100); Mean Platelet Volume 9.7 fL (9.1-12.4); NEUTROPHILS ABSOLUTE AUTO 5.32 K/mm3 (1.96-9.15); NEUTROPHILS PERCENT AUTO 75 % (41-73); NRBC ABSOLUTE 0.04 K/mm3 (0.00-0.02); NRBC Auto 0.6 /100 WBC (0.0-0.2); Platelet Count 246 K/mm3 (150-400); RDW Coefficient Variation 20.8 % (11.7-14.2); RDW Standard Deviation 69.2 fL (35.1-46.3); Red Blood Cell Count 2.08 M/mm3 (3.80-5.20); White Blood Cell Count 7.13 K/mm3 (4.00-11.30)
[2022-12-07 04:20] LABS: Albumin, Blood 2.9 g/dL (3.4-5.0); Albumin/Globulin Ratio 0.9 (0.8-1.8); Bilirubin, Total 0.4 mg/dL (0.1-1.0); Bun/Creatinine Ratio 21.1 (12.0-20.0); Calcium, Blood 8.2 mg/dL (8.5-10.1); Creatinine, Blood 1.28 mg/dL (0.40-1.00); Globulin, Blood 3.4 g/dL (2.2-4.0); Potassium, Blood 3.9 mmol/L (3.5-5.5); Total Protein, Blood 6.3 g/dL (6.4-8.2)
[2022-12-07 04:54] LABS: Hemoglobin 5.6 g/dL (11.5-16.0)
--- NOTE | 2022-12-07 07:53 | NUR ---
SHIFT SUMMARY 2ND UNIT OF PRBC FINISHES THIS AM DURING REPORT, ONE MORE UNIT OF FFP READY IN BB. PT IS SLEEPING SOUNDLY. SATS 95-97% ON RA. TITRATED O2 FROM 1-2 L VIA NC NEEDED FOR APNEIC PERIODS DURING SLEEP WHEN SPO2 DROPPED INTO 70'S. PT DENIED ANY CP T/O SHIFT. SIGNIFICANT SWELLING TO L ARM, DR MARQUEZ CALLED TO BEDSIDE TO ASSESS L ARM. APPEARED TO BECOME MORE PINK IN COLOR SINCE ADMISSION. PT STATES ITCHING IN THE EDEMA AND STATES THAT IT HAS BEEN THERE FOR SEVERAL DAYS AT HOME. IV WAS REMOVED ABOVE SITE IN L ARM FOLLOWING THIS RN NOTICING EDEMA IN L FOREARM. PT DENIES ANY NUMBNESS/TINGLING IN THE EXTREMITY. PT HAD CRACKLES T/O LUNGS THAT DID NOT WORSEN DURING OR AFTER TRANSFUSION. SHORT EPISODE OF SOB FOLLOWING START OF FIRST UNIT OF BLOOD INCREASED TO 100 MLS/HR. PT SEEMED TO RECOVER WELL FOLLOWING DOSE OF LASIX IV AND RATE DOWN TO 75 MLS HR FOR 15-20 MINS. PT STATES EPISODES OF SOB LIKE THIS AT HOME OCCUR OCCASIONALLY.
[2022-12-07 08:31] LABS: Hematocrit 21.3 % (33.0-51.0); Hemoglobin 6.3 g/dL (11.5-16.0)
--- NOTE | 2022-12-07 10:07 | NUR ---
CARE ASSUMPTION PT ALERT, ORIENTED, FORGETFUL PER REPORT. SP02>90% ON RA. TELEMTRY SHOWS AFIB, HR 90'S-100;S. PT HAS BLE EDEMA. L UPPER ARM SWOLLEN, WARM TO TOUCH. NOTIFIED. MD CAMPBELL, STUDENT MD IN ROOM TO ASSESS. MD BOYKIN IN ROOM. NOTIFIED MD BOYKIN OF MOST RECENT HGB, 6.3. W/ ORDERS FOR 1 UNIT PRBCS. DISCUSSED GI CONSULT W/ MD BOYKIN. MD LAGOS'S OFFICE CONTACTED, PT IS NO LONGER ESTABLISHED PT. MD FLETCHER CALLED. MD FLETCHER KINDLY AGREED TO ASSESS PT THIS EVENING. MD BOYKIN NOTIFIED. PT IN ROOM RESTING, FFP JUST FINISHED INFUSING PER EMAR.
--- NOTE | 2022-12-07 13:08 | NUR ---
Pt resting in bed with her eyes closed upon arrival. Pt opens her eyes to gentle verbal stimuli. Pt is A&OX4 and denies pain at this time. Pt reports feeling tired. Brief review of plan of care. Engaged in therapeutic listening as Pt reports not having any family. She reports no children of sibblings. Pt reports living with her friend Elis. She reports friend is supportive of her needs. Gentle education on disease process including trajectory. Discussed the importance of planning for the future and having routine conversations with PCP. Discussed the considering hospice at some point in the future. Listened as Pt reports due to her belief system and pentecostalism she would not consider hospice. Gentle discussion regarding code status. Educated on life sustaining treatments including risk factors and implications of CPR. Pt reports wishes are to remain a full code. Ended visit to allow Pt to rest. Spoke with Pt's Primary RN Mildred and discussed case. Palliative Care will remain available.
--- NOTE | 2022-12-07 15:16 | NUR ---
12/07/22 1516 Trever Zapata See Anesthesia record DR HERNANDEZ.
[2022-12-07 16:50] LABS: Hematocrit 25.2 % (33.0-51.0); Hemoglobin 7.7 g/dL (11.5-16.0)
--- NOTE | 2022-12-07 19:01 | NUR ---
SHIFT SUMMARY NO ACUTE CHANGES SINCE CARE ASSUMPTION, SEE PREVIOUS NOTE. MD SIMON TOOK PT TO SCOPE SUCCESSFULLY. VSS. PT INCONTINENT OF URINE, C/D ATTENDS IN PLACE. PT HAD ONE SMALL BROWN BM THIS EVENING. PRBC AND FFP INFUSED PER EMAR. DENIED PAIN. PT HAD VISITOR FOR MOST OF EVENING. CALL LIGHT IN REACH.
[2022-12-07 22:58] LABS: Hematocrit 25.7 % (33.0-51.0); Hemoglobin 7.7 g/dL (11.5-16.0)
[2022-12-07 23:16] LABS: International Normalized Ratio 1.56; Prothrombin Time Results 15.9 Sec (9.7-11.5)
--- NOTE | 2022-12-08 06:04 | NUR ---
SHIFT SUMMARY ASSUMED CARE OF PT AT 1900. PT IS A/OX4 BUT ANXIOUS. PT WAS SLEEPING AT START OF SHIFT BUT WAS AWOKENFOR MEDICATIONS. AFTER THIS PT HAD A HARD TIME SLEEPING AND COMPLAINED OF ITCHING AND ANXIETY. PT STARTED TO HAVE AUDIBLE WHEEZES AND HOSPITALIST NOTIFIED AND PERSCRIBED AFTER REVIEWING CHART. PT SLEPT AFTER 0000 UNTIL THIS AM WHEN SHE AWOKE TO TAKE PILLS. PT WAS INCONTIENT DURING THE NIGHT. AND HAD NO OTHER COMPLAINTS.
[2022-12-08 06:57] LABS: Hematocrit 25.5 % (33.0-51.0); Hemoglobin 7.5 g/dL (11.5-16.0)
[2022-12-08 07:03] LABS: Bun/Creatinine Ratio 17.6 (12.0-20.0); Calcium, Blood 8.4 mg/dL (8.5-10.1); Creatinine, Blood 1.08 mg/dL (0.40-1.00); Potassium, Blood 4.5 mmol/L (3.5-5.5)
[2022-12-08 08:17] LABS: International Normalized Ratio 1.52; Prothrombin Time Results 15.5 Sec (9.7-11.5)
[2022-12-08 14:40] LABS: Hematocrit 25.7 % (33.0-51.0); Hemoglobin 7.6 g/dL (11.5-16.0)
[2022-12-08 14:44] LABS: Base Excess Venous 5.4 mmol/L; Bicarbonate Venous 28.6 mmol/L (24.0-30.0); PCO2 Venous 56.8 mmHg (38-42); pH Blood Venous 7.35 (7.34-7.37)
[2022-12-08 16:13] LABS: Hematocrit 25.5 % (33.0-51.0); Hemoglobin 7.4 g/dL (11.5-16.0)
--- NOTE | 2022-12-08 17:32 | NUR ---
ASSUMED CARE OF PT AT 0700 THIS AM. PT AWAKE AND ALERT THIS AM, ATE BREAKFAST, THEN BECAME MORE AND MORE SOMULENT T/O THE LATE MORNING AND EARLY AFTERNOON. NEURO ASSESSMENT DID NOT REVEAL ANY OBVIOUS DEFECITS, BUT PT'S MENTATION HAS CHANGED. DR NUNES NOTFIED, HE ARRIVED TO PT'S BEDSIDE SHORTLY AFTER AND PERFORMED A MORE IN DEPTH NEURO EXAM. EKG COMPLETED, STAT CT ORDERED AND LABS COMPLETED PER DR NUNES'S ORDERS. PT APPEARS MORE AWAKE THIS EVENING, SEE DOCUMENTED VS. PT ON HEPARIN GTT AND RESTARTED ON WARFARIN THIS EVENING FOR HER MECHANICAL VALVE/AFIB. PT ABLE TO USE CALL LIGHT FOR NEEDS, CALL LIGHT IN REACH, WILL CONTINUE TO MONITOR AND GIVE REPORT TO NOC SHIFT RN.
[2022-12-08 21:47] LABS: Bun/Creatinine Ratio 17.6 (12.0-20.0); Calcium, Blood 8.7 mg/dL (8.5-10.1); Creatinine, Blood 1.08 mg/dL (0.40-1.00); Free Thyroxine 1.03 ng/dL (0.70-1.60); Potassium, Blood 4.4 mmol/L (3.5-5.5)
[2022-12-08 23:31] LABS: Source, Urine Straight Cath
[2022-12-08 23:49] LABS: Bilirubin, Urine Neg (Neg); Blood, Urine 1+ (Neg); Glucose Qualitative, Urine 1+ (Neg); Ketones, Urine Neg (Neg); Leukocyte Esterase, Urine 1+ (Neg); Nitrite, Urine Neg (Neg); Protein, Urine 2+ (Neg); Urobilinogen, Urine NORM (Normal)
[2022-12-08 23:56] LABS: Appearance, Urine Hazy (Clear); Color, Urine Yellow (P-Yellow)
[2022-12-08 23:57] LABS: Bacteria Mod /hpf; Red Blood Cells, Urine 0-2 /hpf (0-2); Squamous Epithelial Cells Mod /hpf (Few); Yeast/Fungi Urine Few /hpf
[2022-12-09 04:53] LABS: Hematocrit 25.4 % (33.0-51.0); Hemoglobin 7.5 g/dL (11.5-16.0)
[2022-12-09 05:18] LABS: Calcium, Blood 8.4 mg/dL (8.5-10.1); Creatinine, Blood 1.06 mg/dL (0.40-1.00); Potassium, Blood 4.2 mmol/L (3.5-5.5)
[2022-12-09 05:21] LABS: International Normalized Ratio 1.7; Prothrombin Time Results 17.2 Sec (9.7-11.5)
--- NOTE | 2022-12-09 06:02 | NUR ---
SHIFT SUMMARY ASSUMED CARE OF PUMP ERECTOR T 1900. PT IS A/OX3 BUT VERY LETHARGIC. THIS NURSE NOTED CHANGES IN PT BREATHING AND GENERAL CONDITION. PT STATES FEELING BAD AND REFISED NIGHTLY MEDICATIONS DUE TO NOT BEING ABLE TOSTAY AWAKE LONG ENOUGH. HOSPITALIST CONSULTED AND REVEIWED CHARTS. PT SLEPT MOST IF THE NIGHT. PT WAS INCONTIENT OF URINE. PT WAS ABLE TO WAKE UP THIS AM AND USE BSC WITH 2P ASSIST. PT STILL SATES THAT SHE IS TIRED AND FALLS BACK ASLEEP. PT ABLE TO ROLL SELF IN BED. PT REMAINED ON 2L NC T/O THE NIGHT BUT HAD TO BE TURNED UP SLIGHTLY WHEN PT ROLLED ONTO HER BACK.
--- NOTE | 2022-12-09 11:02 | NUR ---
ASSUMED CARE OF PT AT 0700 THIS AM. PT CONTINUES TO BE LETHARGIC. DR CAMPBELL AT BEDSIDE THIS AM FOR EXAM. WOUND TO R FOOT EXAMINED AND REDRESSED. DISCUSSED UA AND PT'S PREVIOUS CXR WITH DR CAMPBELL, CONCERNING FOR INFECTIOUS PROCESS. DR CAMPBELL STATES HE WILL REVIEW CHART AND PLACE ORDERS IF NEEDED.
--- NOTE | 2022-12-09 15:32 | NUR ---
TRANSFER- PT TRANSFERED FROM PCU. REPORT RECIEVED FROM JANA. PT ON 2L NC, PALE AND ALERT AND ORIENTEDX3. PT UNABLE TO TELL ME WHAT THE DATE IS. PER REPORT, HEPARIN DRIP OFF FOR ABOUT 20 MINUTES. STARTED HEP SOON HEP ON THE FLOOR.
--- NOTE | 2022-12-09 17:20 | NUR ---
SHIFT SUMMARY- PT IS ALERT AND ORIENTED X3 UNABLE TO TELL ME WHAT DAY IT IS. PT IS ON A HEPARIN DRIP TITRATED PER PHARMACY INSTRUCTIONS. PT IS PALE AND STATES THAT SHE IS VERY TIRED. PT WAS UP TO BEDSIDE COMMODE WITH 2 PERSON ASSIST. PT DIZZY AND DYSPNIC ON EXERTION. BED IS IN LOWEST POSITION WITH BED ALARM ON AND CALL LIGHT IS IN REACH
[2022-12-09 18:39] LABS: Hematocrit 24.7 % (33.0-51.0); Hemoglobin 7.2 g/dL (11.5-16.0)
--- NOTE | 2022-12-09 20:09 | NUR ---
2000 paged resident transportation solutions manager regarding pt dizziness. per day shift report pt stating she was dizzy for the last couple hours, tru stat H&H that went from 7.5 to now 7.2. vitals stable. pt oriented x2/3, forgetful. Clarified need to keep heparin gtt going. MD states she will look through the chart and address dizziness and to keep gtt running.
--- NOTE | 2022-12-10 03:49 | NUR ---
0320 PT CALLED RN INTO ROOM STATING SHE CANT BREATHE. SPO2 94% ON 2LO2. PT APPEARS SOB, LEANING FORWARD TO BREATHE. PT REPORTING DIZZINESS CALLED RT TO BESIDE, STATING PT MORE FLUID OVERLOADED. PAGED MD CHEMISTRY QUALITY CONTROL TECHNICIAN REAGRDING SITUATION. MD TO BEDSIDE TO ASSESS PT. NEW ORDERS FOR 20MG IV LASIX, MECLIZINE, AND CHEST XRAY. INCREASED O2 TO 3LO2 FOR COMFORT.
[2022-12-10 05:08] LABS: BASOPHILS ABSOLUTE AUTO 0.02 K/mm3 (0.00-0.23); BASOPHILS PERCENT AUTO 0 % (0-2); EOSINOPHILS ABSOLUTE AUTO 0.13 K/mm3 (0.00-0.68); EOSINOPHILS PERCENT AUTO 2 % (0-6); Hematocrit 25.9 % (33.0-51.0); Hemoglobin 7.4 g/dL (11.5-16.0); IMMATURE GRAN ABSOLUTE AUTO 0.03 K/mm3 (0.00-0.10); IMMATURE GRAN PERCENT AUTO 1 % (0-1); LYMPHOCYTES ABSOLUTE AUTO 0.74 K/mm3 (0.84-5.20); LYMPHOCYTES PERCENT AUTO 13 % (21-46); MONOCYTES ABSOLUTE AUTO 0.51 K/mm3 (0.16-1.47); MONOCYTES PERCENT AUTO 9 % (4-13); Mean Corpuscular HGB 27.9 pg (26.0-34.0); Mean Corpuscular HGB Conc 28.6 g/dL (31.5-36.5); Mean Corpuscular Volume 98 fL (80-100); Mean Platelet Volume 10.1 fL (9.1-12.4); NEUTROPHILS ABSOLUTE AUTO 4.27 K/mm3 (1.96-9.15); NEUTROPHILS PERCENT AUTO 75 % (41-73); Platelet Count 227 K/mm3 (150-400); RDW Coefficient Variation 19.8 % (11.7-14.2); Red Blood Cell Count 2.65 M/mm3 (3.80-5.20)
[2022-12-10 05:28] LABS: International Normalized Ratio 2.12; Prothrombin Time Results 21.2 Sec (9.7-11.5)
[2022-12-10 12:04] LABS: Influenza A, PCR NEGATIVE (NEGATIVE); Influenza B, PCR NEGATIVE (NEGATIVE); Resp Syncytial Virus, PCR NEGATIVE (NEGATIVE); SARS-Cov-2 (COVID-19) PCR, MMC NEGATIVE (NEGATIVE)
[2022-12-10 12:21] LABS: PCO2 Venous 58.9 mmHg (38-42); pH Blood Venous 7.35 (7.34-7.37)
[2022-12-10 12:22] LABS: Base Excess Venous 7.1 mmol/L; Bicarbonate Venous 30.2 mmol/L (24.0-30.0)
[2022-12-10 12:22] LABS: International Normalized Ratio 2.4; Prothrombin Time Results 23.8 Sec (9.7-11.5)
[2022-12-10 12:25] LABS: Bun/Creatinine Ratio 15.5 (12.0-20.0); Calcium, Blood 8.6 mg/dL (8.5-10.1); Creatinine, Blood 0.9 mg/dL (0.40-1.00); Potassium, Blood 4.3 mmol/L (3.5-5.5)
--- NOTE | 2022-12-10 14:12 | NUR ---
CALLED DR CAMPBELL- PT SEEMS TO BE MORE SEDATED AND LETHARGIC. PT IS VISIBLY PALE, SHE CAN FOLLOW INSTRUCTIONS MINIMALLY, SHORT ATTENTION SPAN. PERFORMED NEURO CHECKS AND NOTED SEVERE WEAKNESS T/O WHEN COMPARED TO PREVIOUS IN THE SHIFT, RIGHT SIDE SEEMS WEAKER. PT HAVING DIFFICULTY OPENING THE RIGHT EYE AND RIGHT PUPILARY RESPONSE IS SLUGGISH WHILE THE LEFT IS BRISK. THIS IS A CHANGE FROM PREVIOUS, CALLED DR CAMPBELL HE IS AWARE AND IS COMING TO EVALUATE THE PT AGAIN.
--- NOTE | 2022-12-10 17:26 | NUR ---
SHIFT SUMMARY- PT IS DROWSY AND ORIENTED TO SELF AND PLACE. PT OFTEN FORGETS WHAT SHE IS IN THE HOSPITAL FOR AND WHAT THE DATE IS. PT REORIENTS QUICKLY. PT IS ON CONTINUOUS OX, RT CALLED FOR ASSESSMENT WHEN PT DESAT TO MID 80'S AND AUDIBLE WHEEZING/WHISTILING WAS NOTED. MD NOTIFIED AND CAME TO SEE PT AT BEDSIDE. SEE NOTES AND EMAR. PT FRIEND/CAREGIVER IN ROOM DURING ASSESMENT. PT USING BEDPAN AT THE MOMENT. BED IS IN THE LOWEST POSITION WITH CALL LIGHT IN REACH.
[2022-12-11 05:04] LABS: BASOPHILS ABSOLUTE AUTO 0.03 K/mm3 (0.00-0.23); BASOPHILS PERCENT AUTO 1 % (0-2); EOSINOPHILS ABSOLUTE AUTO 0.15 K/mm3 (0.00-0.68); EOSINOPHILS PERCENT AUTO 3 % (0-6); Hematocrit 25.7 % (33.0-51.0); Hemoglobin 7.2 g/dL (11.5-16.0); IMMATURE GRAN ABSOLUTE AUTO 0.02 K/mm3 (0.00-0.10); IMMATURE GRAN PERCENT AUTO 0 % (0-1); LYMPHOCYTES ABSOLUTE AUTO 0.63 K/mm3 (0.84-5.20); LYMPHOCYTES PERCENT AUTO 13 % (21-46); MONOCYTES ABSOLUTE AUTO 0.51 K/mm3 (0.16-1.47); MONOCYTES PERCENT AUTO 11 % (4-13); Mean Corpuscular HGB 27.5 pg (26.0-34.0); Mean Corpuscular Volume 98 fL (80-100); Mean Platelet Volume 10.1 fL (9.1-12.4); NEUTROPHILS ABSOLUTE AUTO 3.38 K/mm3 (1.96-9.15); NEUTROPHILS PERCENT AUTO 72 % (41-73); Platelet Count 235 K/mm3 (150-400); RDW Coefficient Variation 19.7 % (11.7-14.2); RDW Standard Deviation 69.5 fL (35.1-46.3); Red Blood Cell Count 2.62 M/mm3 (3.80-5.20); White Blood Cell Count 4.72 K/mm3 (4.00-11.30)
[2022-12-11 05:14] LABS: International Normalized Ratio 2.62; Prothrombin Time Results 25.8 Sec (9.7-11.5)
[2022-12-11 05:18] LABS: Bun/Creatinine Ratio 17.1 (12.0-20.0); Calcium, Blood 8.6 mg/dL (8.5-10.1); Creatinine, Blood 0.76 mg/dL (0.40-1.00); Potassium, Blood 4.1 mmol/L (3.5-5.5)
--- NOTE | 2022-12-11 06:59 | NUR ---
AT MORNING VITALS CHECK PATIENT WAS SUSTAINING HR IN 130S. CALLED MD LUCREICA ORDERED 5 MG IV METOPROLOL. HR DROPPED TO 60-70. CONFUSION/DROWSINESS/DIZZINESS CONTINUE. ORIENTATION/LETHARGY FLUCTUATES DURING THE SHIFT. AOX2. TOLERATES PO MEDS BUT SOMETIMES REQUIRES ENCOURAGEMENT. INDEPENDENT TURNS IN BED BUT WEAK, UNSTABLE GAIT. PT TRANSFERRED TO [facility] WITH X1 ASSIST ONCE LAST NIGHT. ENCOURAGE BEDPAN FOR SAFETY. HGB DROPPED FROM 7.4 TO 7.2 CONTINUE TO MONITOR.
--- NOTE | 2022-12-11 19:36 | NUR ---
SHIFT SUMMARY- PT ALERT AND ORIENTED TO SELF. PT HAD A SWALLOW EVAL TODAY AND NOW RECIEVES MEDS WHOLE IN APPLE SAUCE. SHE DID WELL WITH THAT FOR THIS EVENINGS MEDS. PT HAS REMAINED IN BED T/O THE DAY. BETA JEFFERY WAS ORDERED AFTER THE PT HAD TACHY EPISODE LAST NIGHT, HER HR RUNS IN THE 110'S CONSISTENTLY. THE PT WAS MORE ALERT TODAY WHEN COMPARED TO YESTERDAY. THE PT DID C/O SOMETIMES FEELING LIKE SHE DOESNT HAVE ENOUGH AIR DURRING BEDSIDE REPORT. O2 SATS 91-94% ON 3L VIA NC. NIGHT RN AWARE. PT IS IN BED, CALL LIGHT IN REACH, NO S&S OF DISTRESS NOTED AT THIS TIME. NIGHT RN ASSUMED CARE.
--- NOTE | 2022-12-12 04:34 | NUR ---
SOB REPORTED BY PATIENT AT 2330. CRACKLES NOTED IN BILATERAL LOWER LOBES. POSITIONED PT AT 90 DEGREES WITH MINIMAL RELIEF. RT GAVE ALBUTEROL AND ENCOURAGED DEEP BREATHING, NORMAL BREATHING RESUMED AND PT SLEPT COMFORTABLY AGAIN. MORE ALERT AND ORIENTED TONIGHT THAN LAST NIGHT. TOLERATES PILLS WHOLE IN APPLESAUCE. USING BEDPAN DUE TO DIZZINESS. DID NOT GET OOB LAST NIGHT. TACHYCARDIC IN 100'S-110'S. CALLS TO MAKE NEEDS KNOWN. PLEASANT, COOPERATIVE, ALERT AND ORIENTED.
[2022-12-12 04:52] LABS: Hematocrit 26.6 % (33.0-51.0); Hemoglobin 7.5 g/dL (11.5-16.0)
[2022-12-12 05:11] LABS: International Normalized Ratio 3.08
[2022-12-12 05:12] LABS: Bun/Creatinine Ratio 18.3 (12.0-20.0); Calcium, Blood 8.9 mg/dL (8.5-10.1); Creatinine, Blood 0.76 mg/dL (0.40-1.00); Potassium, Blood 4.3 mmol/L (3.5-5.5)
--- NOTE | 2022-12-12 18:33 | NUR ---
SHIFT SUMMARY- PT HAS BEEN LETHARGIC AND MINIMALLY RESPONSIVE T/O THE SHIFT. ATTENDS WERE DRY AND CLEAN, THE PT REQUIRED MULTIPLE BOOSTS UP IN THE BED, WITH REPOSITIONING. AT 1400 VITALS WERE RECHECKED PT WAS STILL DRY, STAFF WERE A LITTLE CONCERNED SHE HAD BUMEX THIS MORNING. THEN SHE VOIDED AT 1500 A VERY LARGE INCONTINENT VOID AND SATURATED HER LINNENS AND SHE HAD A LARGE FORMED BM AT THAT TIME WELL, FULL BED BATH PERFORMED AND LINNEN CHANGE. PT CAREGIVER WAS PRESENT IN THE ROOM. THE PT CAREGIVER WAS ATTEMPTING TO FEED THE PT WHO'S TRAY WAS BEING HELD BECAUSE OF THE RISK FOR ASPIRATION D/T HER BEING SO LETHARGIC. EXPLAINED THE SAFETY CONCERN SHE WAS TRYING TO FEED THE PT LYING DOWN. SHE DID STOP ATTEMPTING TO FEED THE PT AFTER MULTIPLE EXPLAINATIONS. SHE SAT AND VISITED WITH THE PT WHO FINALLY FULLY WOKE UP AFTER SHE LEFT AT DINNER TIME. THE PT WAS SITTING UP TALKING ON THE PHONE. PT WAS PROVIDED HER TRAY OF WICH SHE ATE 100%. PT IS SITING UP IN BED AT THS TIME ATTENDS ARE CLEAN AND DRY. WILL CTM AND PASS ON TO NIGHT RN IN BEDSIDE REPORT.
[2022-12-13 04:53] LABS: Hematocrit 26.4 % (33.0-51.0); Hemoglobin 7.5 g/dL (11.5-16.0)
[2022-12-13 05:13] LABS: International Normalized Ratio 3.46; Prothrombin Time Results 33.5 Sec (9.7-11.5)
[2022-12-13 05:15] LABS: Albumin, Blood 2.9 g/dL (3.4-5.0); Anion Gap 2 mmol/L (6-16); Blood Urea Nitrogen 13 mg/dL (8-24); Bun/Creatinine Ratio 15.2 (12.0-20.0); CO2, Blood 35 mmol/L (21-32); Calcium, Blood 9.1 mg/dL (8.5-10.1); Chloride, Blood 100 mmol/L (98-108); Creatinine, Blood 0.86 mg/dL (0.40-1.00); Glomerular Filtration Rate 67 (60-); Glucose, Blood 148 mg/dL (70-99); Phosphorus, Blood 3.8 mg/dL (2.5-4.9); Potassium, Blood 4.2 mmol/L (3.5-5.5); Sodium, Blood 137 mmol/L (136-145)
--- NOTE | 2022-12-13 05:17 | NUR ---
SHIFT SUMMARY: PT IS ALERT AND ORIENTED. PT IS CALM AND COOPERATIVE WITH CARE. PT SEEMS FAIRLY WEAK AND LETHARGIC, NOT OUT OF BED OVERNIGHT. PT INCONTINENT, CHANGED AND CLEANED NEEDED. PT REPORTED SOB ON ONE OCCASION, O2 ON 2 L, SATS > 90%, NEBS NEEDED. PT DENIES PAIN, NAUSEA, AND VOMITING. PT SLEPT MUCH OF THE SHIFT WHEN NOT DISTURBED. NO ACUTE CHANGES OR COMPLICATIONS. BED IN LOW POSITION, CALL LIGHT WITHIN REACH. WILL REPORT TO DAY NURSE.
[2022-12-13 10:08] LABS: BASOPHILS ABSOLUTE AUTO 0.05 K/mm3 (0.00-0.23); BASOPHILS PERCENT AUTO 1 % (0-2); EOSINOPHILS PERCENT AUTO 2 % (0-6); Hematocrit 26.9 % (33.0-51.0); Hemoglobin 7.6 g/dL (11.5-16.0); IMMATURE GRAN ABSOLUTE AUTO 0.02 K/mm3 (0.00-0.10); IMMATURE GRAN PERCENT AUTO 0 % (0-1); LYMPHOCYTES ABSOLUTE AUTO 0.56 K/mm3 (0.84-5.20); LYMPHOCYTES PERCENT AUTO 12 % (21-46); MONOCYTES ABSOLUTE AUTO 0.41 K/mm3 (0.16-1.47); MONOCYTES PERCENT AUTO 9 % (4-13); Mean Corpuscular HGB 27.7 pg (26.0-34.0); Mean Corpuscular HGB Conc 28.3 g/dL (31.5-36.5); Mean Corpuscular Volume 98 fL (80-100); Mean Platelet Volume 9.7 fL (9.1-12.4); NEUTROPHILS ABSOLUTE AUTO 3.63 K/mm3 (1.96-9.15); NEUTROPHILS PERCENT AUTO 76 % (41-73); Platelet Count 229 K/mm3 (150-400); RDW Coefficient Variation 19.1 % (11.7-14.2); RDW Standard Deviation 68.2 fL (35.1-46.3); Red Blood Cell Count 2.74 M/mm3 (3.80-5.20); White Blood Cell Count 4.77 K/mm3 (4.00-11.30)
--- NOTE | 2022-12-13 18:48 | NUR ---
SHIFT SUMMARY- PT IS A/O, PLESANT AND COOPERATIVE. SHE IS EATING AND DRINKING WELL. SHE IS UP TO THE BSC WITH ASSISTANCE. FRIEND AT BEDSIDE THIS SHIFT. WORKED WITH PT AND TOLERATED WELL, DID BECOME DIZZY WHILE WORKING WITH PT. HER BED IS IN THE LOW POSITOIN AND CALL LIGHT IS WITIN REACH.
--- NOTE | 2022-12-14 04:47 | NUR ---
SUMMARY: NO ACUTE EVENTS OVERNIGHT. PATIENT AOX3. VSS. NC IN PLACE 2L. ON CONT PULSE OX. PATIENT DID REPORT FEELING DIZZY WHEN STAFF BOOSTED HER UP IN BED. PATIENT ABLE TO TURN HERSELF INDEPENDENTLY IN BED.
[2022-12-14 05:08] LABS: BASOPHILS ABSOLUTE AUTO 0.06 K/mm3 (0.00-0.23); BASOPHILS PERCENT AUTO 1 % (0-2); EOSINOPHILS ABSOLUTE AUTO 0.12 K/mm3 (0.00-0.68); EOSINOPHILS PERCENT AUTO 2 % (0-6); Hemoglobin 7.5 g/dL (11.5-16.0); IMMATURE GRAN ABSOLUTE AUTO 0.01 K/mm3 (0.00-0.10); IMMATURE GRAN PERCENT AUTO 0 % (0-1); LYMPHOCYTES ABSOLUTE AUTO 0.71 K/mm3 (0.84-5.20); LYMPHOCYTES PERCENT AUTO 14 % (21-46); MONOCYTES ABSOLUTE AUTO 0.44 K/mm3 (0.16-1.47); MONOCYTES PERCENT AUTO 9 % (4-13); Mean Corpuscular HGB 28.2 pg (26.0-34.0); Mean Corpuscular HGB Conc 28.8 g/dL (31.5-36.5); Mean Corpuscular Volume 98 fL (80-100); Mean Platelet Volume 9.8 fL (9.1-12.4); NEUTROPHILS PERCENT AUTO 73 % (41-73); Platelet Count 221 K/mm3 (150-400); RDW Coefficient Variation 19.3 % (11.7-14.2); RDW Standard Deviation 68.8 fL (35.1-46.3); Red Blood Cell Count 2.66 M/mm3 (3.80-5.20); White Blood Cell Count 5.04 K/mm3 (4.00-11.30)
[2022-12-14 05:16] LABS: International Normalized Ratio 3.39; Prothrombin Time Results 32.9 Sec (9.7-11.5)
--- NOTE | 2022-12-14 18:13 | NUR ---
SHIFT SUMMARY AT BEGINNING OF SHIFT PT WAS IN BED AROUSABLE THOUGH WOULD NOT REMAIN AWAKE. ORAL MEDS HELD TIL PT ABLE TO REMAIN AWAKE TO SAFELY SWALLOW MEDS. ONCE AWAKE MEDS GIVEN, UP TO BSC, AND TO CHAIR FOR LUNCH & DINNER. PG IN R UA INFILTRATED, DC'D. PLACED CALL TO MD AND RECEIVED ORDERS FOR NO IV NEEDED. PT IS A&O X 3-4. IS COOPERATIVE AND PLEASANT. DENIES PAIN & SOB. PLAN IS FOR PLACEMENT UPON DC.
--- NOTE | 2022-12-15 03:41 | NUR ---
SUMMARY: NO ACUTE EVENTS OVERNIGHT. PATIENT AOX3. VSS. INCONTINENT OVERNIGHT, BREIF CHANGED NEEDED. PATIENT ABLE TO TURN INDEPENDENTLY IN BED. [facility] CALL LIGHT IN REACH.
[2022-12-15 04:31] LABS: Hematocrit 26.1 % (33.0-51.0); Hemoglobin 7.4 g/dL (11.5-16.0)
[2022-12-15 05:32] LABS: International Normalized Ratio 2.94; Prothrombin Time Results 28.8 Sec (9.7-11.5)
[2022-12-15] MEDS ORDERED: METO25 PO (11:14)
[2022-12-15] MEDS ORDERED: TRANSDERM-SCOP1 EA10 TD (11:15)
[2022-12-15 11:23] LABS: Influenza A, PCR NEGATIVE (NEGATIVE); Influenza B, PCR NEGATIVE (NEGATIVE); Resp Syncytial Virus, PCR NEGATIVE (NEGATIVE); SARS-Cov-2 (COVID-19) PCR, MMC NEGATIVE (NEGATIVE)
--- NOTE | 2022-12-15 12:58 | NUR ---
DISCHARGE NOTE- SPOKE TO BALDO ROBLEDO AT [facility] AND GAVE REPORT. THEY HAVE CONTACT INFO AND WILL CALL WITH QUESTIONS.
== END 2022-12-15 12:32 | DRG 811 ==
LOC: ER 18:18 → PCU 20:55 → MEDS 12-07 15:45 → PCU 12-07 15:45 → MEDS 12-09 11:49
PROVIDERS: Family Medicine; Family Medicine Adult Medicine; Hospitalist; Student in an Organized Health Care Education/Training Program; ADMIT Internal Medicine
PROC: 0W3P8ZZ Control Bleeding in Gastrointestinal Tract, Via Natural or Artificial Opening Endoscopic (ICD-10-PCS; 2022-12-07)
PROC: 30233N1 Transfusion of Nonautologous Red Blood Cells into Peripheral Vein, Percutaneous Approach (ICD-10-PCS; 2022-12-07)
PROC: 30233K1 Transfusion of Nonautologous Frozen Plasma into Peripheral Vein, Percutaneous Approach (ICD-10-PCS; 2022-12-07)
PROC: 0DJD8ZZ Inspection of Lower Intestinal Tract, Via Natural or Artificial Opening Endoscopic (ICD-10-PCS; principal; 2022-12-07 15:30)
DX: D62 Acute posthemorrhagic anemia (principal); K25.4 Chronic or unspecified gastric ulcer with hemorrhage; I50.42 Chronic combined systolic (congestive) and diastolic (congestive) heart failure; N17.9 Acute kidney failure, unspecified; J81.1 Chronic pulmonary edema; I13.0 Hypertensive heart and chronic kidney disease with heart failure and stage 1 through stage 4 chronic kidney disease, or unspecified chronic kidney disease; D63.1 Anemia in chronic kidney disease; I48.91 Unspecified atrial fibrillation; I35.0 Nonrheumatic aortic (valve) stenosis; N18.30 Chronic kidney disease, stage 3 unspecified; E11.22 Type 2 diabetes mellitus with diabetic chronic kidney disease; K21.9 Gastro-esophageal reflux disease without esophagitis; R79.1 Abnormal coagulation profile; E03.9 Hypothyroidism, unspecified; M42.10 Adult osteochondrosis of spine, site unspecified; F41.9 Anxiety disorder, unspecified; K60.2 Anal fissure, unspecified; J44.9 Chronic obstructive pulmonary disease, unspecified; R19.5 Other fecal abnormalities; I25.10 Atherosclerotic heart disease of native coronary artery without angina pectoris; I27.20 Pulmonary hypertension, unspecified; E11.42 Type 2 diabetes mellitus with diabetic polyneuropathy; E11.43 Type 2 diabetes mellitus with diabetic autonomic (poly)neuropathy; K31.84 Gastroparesis; M10.9 Gout, unspecified; K58.9 Irritable bowel syndrome, unspecified; I49.5 Sick sinus syndrome; F32.9 Major depressive disorder, single episode, unspecified; G47.33 Obstructive sleep apnea (adult) (pediatric); R09.02 Hypoxemia; M35.3 Polymyalgia rheumatica; G31.84 Mild cognitive impairment of uncertain or unknown etiology; Z20.822 Contact with and (suspected) exposure to COVID-19; Z87.19 Personal history of other diseases of the digestive system; Z85.41 Personal history of malignant neoplasm of cervix uteri; Z86.79 Personal history of other diseases of the circulatory system; Z90.710 Acquired absence of both cervix and uterus; Z98.890 Other specified postprocedural states; Z79.4 Long term (current) use of insulin; Z95.0 Presence of cardiac pacemaker; Z95.2 Presence of prosthetic heart valve; Z79.01 Long term (current) use of anticoagulants; Z88.8 Allergy status to other drugs, medicaments and biological substances; Z88.5 Allergy status to narcotic agent; Z79.899 Other long term (current) drug therapy; Z90.49 Acquired absence of other specified parts of digestive tract
CPT/HCPCS: 0241U; 36415; 36430; 70450; 71045; 71046; 80048; 80053; 80069; 81001; 82533; 82607; 82746; 82803; 82947; 83880; 84145; 84439; 84443; 85014; 85018; 85025; 85610; 85730; 86850; 86900; 86901; 86923; 87086; 92523; 92526; 92610; 93005; 93010; 94640; 94760; 94762; 96365; 96366; 96367; 96375; 96376; 97110; 97162; 97165; 97530; 97535; 99285-25; A9270; C1751; C9113; G0378; J1644; J1815; J1940; J2001; J2060; J2405; J2704; J2916; J3430; J7030; J7040; J7050; J7120; P9016; P9059

== ENCOUNTER → 2022-12-06 | Outpatient (CLI) | payer MEDICARE ==
[~2022-12-06] MED LIST changes: +ESTRADIOL42.5 GM; +SULFAMETHOXAZO1 EAC1; +ZINC15 PO
[2022-12-06 17:06] LABS: BASOPHILS ABSOLUTE AUTO 0.02 K/mm3 (0.00-0.23); BASOPHILS PERCENT AUTO 0 % (0-2); EOSINOPHILS ABSOLUTE AUTO 0.15 K/mm3 (0.00-0.68); EOSINOPHILS PERCENT AUTO 2 % (0-6); Hematocrit 18.6 % (33.0-51.0); IMMATURE GRAN ABSOLUTE AUTO 0.03 K/mm3 (0.00-0.10); IMMATURE GRAN PERCENT AUTO 0 % (0-1); LYMPHOCYTES PERCENT AUTO 18 % (21-46); MONOCYTES ABSOLUTE AUTO 0.63 K/mm3 (0.16-1.47); MONOCYTES PERCENT AUTO 8 % (4-13); Mean Corpuscular HGB 26.4 pg (26.0-34.0); Mean Corpuscular Volume 94 fL (80-100); Mean Platelet Volume 9.6 fL (9.1-12.4); NEUTROPHILS ABSOLUTE AUTO 5.66 K/mm3 (1.96-9.15); NEUTROPHILS PERCENT AUTO 72 % (41-73); NRBC ABSOLUTE 0.06 K/mm3 (0.00-0.02); NRBC Auto 0.8 /100 WBC (0.0-0.2); Platelet Count 285 K/mm3 (150-400); RDW Coefficient Variation 22.4 % (11.7-14.2); RDW Standard Deviation 75.7 fL (35.1-46.3); Red Blood Cell Count 1.97 M/mm3 (3.80-5.20); White Blood Cell Count 7.89 K/mm3 (4.00-11.30)
[2022-12-06 17:25] LABS: Hemoglobin 5.2 g/dL (11.5-16.0)
[2022-12-06 18:00] LABS: Albumin, Blood 3.1 g/dL (3.4-5.0); Albumin/Globulin Ratio 0.9 (0.8-1.8); Bilirubin, Total 0.4 mg/dL (0.1-1.0); Bun/Creatinine Ratio 20.9 (12.0-20.0); Calcium, Blood 8.6 mg/dL (8.5-10.1); Creatinine, Blood 1.29 mg/dL (0.40-1.00); Globulin, Blood 3.3 g/dL (2.2-4.0); Total Protein, Blood 6.4 g/dL (6.4-8.2)
[2022-12-06 18:16] LABS: Prothrombin Time Results >90.0 Sec (9.7-11.5)
[2022-12-06 18:22] LABS: International Normalized Ratio >10.00
== END | disposition home or self-care (01) ==
LOC: LAB 16:57 → LAB SHORT 16:57
PROVIDERS: Physician Assistant Medical
DX: Z79.01 Long term (current) use of anticoagulants (principal); Z51.81 Encounter for therapeutic drug level monitoring; R11.0 Nausea; R19.5 Other fecal abnormalities
CPT/HCPCS: 80053; 85025; 85610

== ENCOUNTER → 2023-01-07 | Outpatient (CLI) | payer MEDICARE ==
[~2023-01-07] MED LIST changes: +ESTRADIOL42.5 GM; +SULFAMETHOXAZO1 EAC1; +TRANSDERM-SCOP1 EA10 TD; +ZINC15 PO
[2023-01-07 19:32] LABS: BASOPHILS ABSOLUTE AUTO 0.03 K/mm3 (0.00-0.23); BASOPHILS PERCENT AUTO 1 % (0-2); EOSINOPHILS ABSOLUTE AUTO 0.08 K/mm3 (0.00-0.68); EOSINOPHILS PERCENT AUTO 2 % (0-6); Hematocrit 30.7 % (33.0-51.0); Hemoglobin 9.4 g/dL (11.5-16.0); IMMATURE GRAN ABSOLUTE AUTO 0.02 K/mm3 (0.00-0.10); IMMATURE GRAN PERCENT AUTO 0 % (0-1); LYMPHOCYTES ABSOLUTE AUTO 1.14 K/mm3 (0.84-5.20); LYMPHOCYTES PERCENT AUTO 23 % (21-46); MONOCYTES ABSOLUTE AUTO 0.43 K/mm3 (0.16-1.47); MONOCYTES PERCENT AUTO 9 % (4-13); Mean Corpuscular HGB 29.9 pg (26.0-34.0); Mean Corpuscular HGB Conc 30.6 g/dL (31.5-36.5); Mean Corpuscular Volume 98 fL (80-100); NEUTROPHILS ABSOLUTE AUTO 3.17 K/mm3 (1.96-9.15); NEUTROPHILS PERCENT AUTO 65 % (41-73); Platelet Count 243 K/mm3 (150-400); RDW Coefficient Variation 18.2 % (11.7-14.2); RDW Standard Deviation 65.3 fL (35.1-46.3); Red Blood Cell Count 3.14 M/mm3 (3.80-5.20); White Blood Cell Count 4.87 K/mm3 (4.00-11.30)
[2023-01-07 19:49] LABS: Percent Saturation 18.8 % (15.0-50.0)
== END | disposition home or self-care (01) ==
LOC: LAB SHORT 18:57
PROVIDERS: Family Medicine
DX: D50.0 Iron deficiency anemia secondary to blood loss (chronic) (principal); E11.9 Type 2 diabetes mellitus without complications
CPT/HCPCS: 82728; 83036; 83540; 83550; 85025

== ENCOUNTER → 2023-04-19 | Outpatient (CLI) | payer MEDICARE, OTHER ==
[2023-04-19 19:47] LABS: BASOPHILS ABSOLUTE AUTO 0.04 K/mm3 (0.00-0.23); BASOPHILS PERCENT AUTO 1 % (0-2); EOSINOPHILS ABSOLUTE AUTO 0.12 K/mm3 (0.00-0.68); EOSINOPHILS PERCENT AUTO 2 % (0-6); Hematocrit 35.1 % (33.0-51.0); Hemoglobin 10.4 g/dL (11.5-16.0); IMMATURE GRAN ABSOLUTE AUTO 0.01 K/mm3 (0.00-0.10); IMMATURE GRAN PERCENT AUTO 0 % (0-1); LYMPHOCYTES PERCENT AUTO 26 % (21-46); MONOCYTES ABSOLUTE AUTO 0.41 K/mm3 (0.16-1.47); MONOCYTES PERCENT AUTO 7 % (4-13); Mean Corpuscular HGB 28.5 pg (26.0-34.0); Mean Corpuscular HGB Conc 29.6 g/dL (31.5-36.5); Mean Corpuscular Volume 96 fL (80-100); Mean Platelet Volume 10.4 fL (9.1-12.4); NEUTROPHILS ABSOLUTE AUTO 4.05 K/mm3 (1.96-9.15); NEUTROPHILS PERCENT AUTO 65 % (41-73); Platelet Count 285 K/mm3 (150-400); RDW Coefficient Variation 15.5 % (11.7-14.2); RDW Standard Deviation 54.4 fL (35.1-46.3); Red Blood Cell Count 3.65 M/mm3 (3.80-5.20); White Blood Cell Count 6.23 K/mm3 (4.00-11.30)
[2023-04-19 20:07] LABS: Percent Saturation 9.8 % (15.0-50.0)
== END | disposition home or self-care (01) ==
LOC: LAB SHORT 16:13 → LAB 16:13
PROVIDERS: Family Medicine
DX: E11.9 Type 2 diabetes mellitus without complications (principal); D50.0 Iron deficiency anemia secondary to blood loss (chronic)
CPT/HCPCS: 82728; 83036; 83540; 83550; 85025

== ENCOUNTER → 2023-11-10 | Outpatient (CLI) | payer OTHER ==
[~2023-11-10] MED LIST changes: +HYDHCL25 PO
[2023-11-10 19:31] LABS: Prothrombin Time Results 41.2 Sec (9.7-11.5)
[2023-11-10 19:45] LABS: International Normalized Ratio 4.26
== END ==
LOC: LAB 17:31 → LAB SHORT 17:31
PROVIDERS: Family Medicine
DX: Z51.81 Encounter for therapeutic drug level monitoring (principal); I48.91 Unspecified atrial fibrillation; E03.9 Hypothyroidism, unspecified; Z79.01 Long term (current) use of anticoagulants
CPT/HCPCS: 84443; 85610

== ENCOUNTER 2023-11-16 12:16 | Emergency (ER) | payer OTHER ==
[~2023-11-16] VITALS: Ht 165.1 cm; Wt 86.2 kg
[~2023-11-16 12:16] MED LIST changes: -HYDHCL25 PO
[2023-11-16 13:00] LABS: BASOPHILS ABSOLUTE AUTO 0.03 K/mm3 (0.00-0.23); BASOPHILS PERCENT AUTO 0 % (0-2); EOSINOPHILS ABSOLUTE AUTO 0.07 K/mm3 (0.00-0.68); EOSINOPHILS PERCENT AUTO 1 % (0-6); Hematocrit 36.8 % (33.0-51.0); Hemoglobin 11.7 g/dL (11.5-16.0); IMMATURE GRAN ABSOLUTE AUTO 0.02 K/mm3 (0.00-0.10); IMMATURE GRAN PERCENT AUTO 0 % (0-1); LYMPHOCYTES ABSOLUTE AUTO 1.28 K/mm3 (0.84-5.20); LYMPHOCYTES PERCENT AUTO 18 % (21-46); MONOCYTES ABSOLUTE AUTO 0.48 K/mm3 (0.16-1.47); MONOCYTES PERCENT AUTO 7 % (4-13); Mean Corpuscular HGB 30.2 pg (26.0-34.0); Mean Corpuscular HGB Conc 31.8 g/dL (31.5-36.5); Mean Corpuscular Volume 95 fL (80-100); Mean Platelet Volume 10.8 fL (9.1-12.4); NEUTROPHILS ABSOLUTE AUTO 5.13 K/mm3 (1.96-9.15); NEUTROPHILS PERCENT AUTO 73 % (41-73); Platelet Count 176 K/mm3 (150-400); RDW Coefficient Variation 16.2 % (11.7-14.2); RDW Standard Deviation 55.5 fL (35.1-46.3); Red Blood Cell Count 3.87 M/mm3 (3.80-5.20); White Blood Cell Count 7.01 K/mm3 (4.00-11.30)
[2023-11-16 13:22] LABS: Albumin, Blood 3.2 g/dL (3.4-5.0); Albumin/Globulin Ratio 0.8 (0.8-1.8); Bilirubin, Total 1.1 mg/dL (0.1-1.0); Bun/Creatinine Ratio 18.8 (12.0-20.0); Calcium, Blood 9.1 mg/dL (8.5-10.1); Creatinine, Blood 0.85 mg/dL (0.40-1.00); Potassium, Blood 3.9 mmol/L (3.5-5.5); Total Protein, Blood 7.2 g/dL (6.4-8.2)
[2023-11-16] MEDS ORDERED: HYDHCL25 PO (14:02)
[2023-11-16 14:28] VITALS: BP 133/88
== END 2023-11-16 14:29 | disposition home or self-care (01) ==
LOC: ER 12:16
PROVIDERS: Emergency Medicine
DX: R19.5 Other fecal abnormalities (principal); I48.91 Unspecified atrial fibrillation; L29.9 Pruritus, unspecified; I11.0 Hypertensive heart disease with heart failure; I50.9 Heart failure, unspecified; E03.9 Hypothyroidism, unspecified; E11.9 Type 2 diabetes mellitus without complications; Z88.5 Allergy status to narcotic agent; Z91.018 Allergy to other foods; Z79.899 Other long term (current) drug therapy; Z79.4 Long term (current) use of insulin; Z79.01 Long term (current) use of anticoagulants; Z79.890 Hormone replacement therapy; Z95.2 Presence of prosthetic heart valve; Z95.0 Presence of cardiac pacemaker
CPT/HCPCS: 80053; 82272; 85025; 93005; 93010; 96365; 99283-25; A9270; C9113; J1200

== ENCOUNTER → 2023-12-21 | Outpatient (CLI) | payer OTHER ==
[~2023-12-21] MED LIST changes: +HYDHCL25 PO
[2023-12-21 20:17] LABS: Albumin, Blood 2.9 g/dL (3.4-5.0); Albumin/Globulin Ratio 0.8 (0.8-1.8); Bilirubin, Total 1.1 mg/dL (0.1-1.0); Bun/Creatinine Ratio 28.7 (12.0-20.0); Calcium, Blood 8.8 mg/dL (8.5-10.1); Creatinine, Blood 1.22 mg/dL (0.40-1.00); Globulin, Blood 3.7 g/dL (2.2-4.0); Potassium, Blood 3.4 mmol/L (3.5-5.5); Total Protein, Blood 6.6 g/dL (6.4-8.2)
== END | disposition home or self-care (01) ==
LOC: LAB SHORT 17:35 → LAB 17:35
PROVIDERS: Family Medicine
DX: R60.0 Localized edema (principal)
CPT/HCPCS: 80053; 83880

== ENCOUNTER → 2024-07-27 | Outpatient (CLI) | payer OTHER ==
[2024-07-27 12:38] LABS: BASOPHILS ABSOLUTE AUTO 0.03 K/mm3 (0.00-0.23); BASOPHILS PERCENT AUTO 1 % (0-2); EOSINOPHILS ABSOLUTE AUTO 0.26 K/mm3 (0.00-0.68); EOSINOPHILS PERCENT AUTO 5 % (0-6); Hematocrit 34.6 % (33.0-51.0); Hemoglobin 10.8 g/dL (11.5-16.0); IMMATURE GRAN ABSOLUTE AUTO 0.01 K/mm3 (0.00-0.10); IMMATURE GRAN PERCENT AUTO 0 % (0-1); LYMPHOCYTES ABSOLUTE AUTO 1.87 K/mm3 (0.84-5.20); LYMPHOCYTES PERCENT AUTO 34 % (21-46); MONOCYTES ABSOLUTE AUTO 0.51 K/mm3 (0.16-1.47); MONOCYTES PERCENT AUTO 9 % (4-13); Mean Corpuscular HGB 31.3 pg (26.0-34.0); Mean Corpuscular HGB Conc 31.2 g/dL (31.5-36.5); Mean Corpuscular Volume 100 fL (80-100); Mean Platelet Volume 10.6 fL (9.1-12.4); NEUTROPHILS ABSOLUTE AUTO 2.85 K/mm3 (1.96-9.15); NEUTROPHILS PERCENT AUTO 52 % (41-73); Platelet Count 139 K/mm3 (150-400); RDW Coefficient Variation 14.7 % (11.7-14.2); RDW Standard Deviation 54.4 fL (35.1-46.3); Red Blood Cell Count 3.45 M/mm3 (3.80-5.20); White Blood Cell Count 5.53 K/mm3 (4.00-11.30)
[2024-07-27 12:47] LABS: Albumin, Blood 2.9 g/dL (3.4-5.0); Albumin/Globulin Ratio 0.7 (0.8-1.8); Bilirubin, Total 0.7 mg/dL (0.1-1.0); Bun/Creatinine Ratio 19.3 (12.0-20.0); Calcium, Blood 8.6 mg/dL (8.5-10.1); Creatinine, Blood 1.09 mg/dL (0.40-1.00); Globulin, Blood 3.9 g/dL (2.2-4.0); Potassium, Blood 4.1 mmol/L (3.5-5.5); Total Protein, Blood 6.8 g/dL (6.4-8.2)
[2024-07-27 13:27] LABS: International Normalized Ratio 2.48; Prothrombin Time Results 24.8 Sec (9.7-11.5)
== END ==
LOC: LAB 12:34 → LAB SHORT 12:34
PROVIDERS: Chiropractor
DX: R10.9 Unspecified abdominal pain (principal); Z79.01 Long term (current) use of anticoagulants
CPT/HCPCS: 80053; 83690; 85025; 85610

== ENCOUNTER 2024-08-22 10:09 | Day surgery (SDC) | payer OTHER ==
[2024-08-22] VITALS (11 sets, daily range): BP systolic 134–178; BP diastolic 60–104
[~2024-08-22] VITALS: Ht 165.1 cm; Wt 81.8 kg
[~2024-08-22 10:09] MED LIST changes: +DONE10 PO; +Estrace Vagin42.5 GM VAG; +INSULANI SC; +MULVITA PO
[2024-08-22] MEDS ORDERED: NS 500 ML IV ONE ×2 (10:56→13:17)
[2024-08-22] MEDS ORDERED: NS 250 ML IV ONE (10:59)
[2024-08-22] MEDS ORDERED: Nitroglycerin 2 MG/20 ML BTL ONE (10:59)
[2024-08-22] MEDS ORDERED: NS 1,000 ML IV ONE (10:59)
[2024-08-22] MEDS ORDERED: Coumadin3 MG PO (10:59)
[2024-08-22] MEDS ORDERED: Heparin Sodium 1000 Units/ML 10ML MDV ONE (10:59)
[2024-08-22] MEDS ORDERED: WARF1 PO (10:59)
[2024-08-22] MEDS ORDERED: Verapamil HCL 2.5 MG/ML 2ML Injection ONE (10:59)
[2024-08-22] MEDS ORDERED: FentaNYL Citrate 50 MCG/ML 2 ML Injection ONE (11:42)
[2024-08-22] MEDS ORDERED: Midazolam HCl 1MG / ML 2ML Vial ONE (11:42)
--- NOTE | 2024-08-22 12:50 | NUR ---
ASSUMED CARE OF PT POST PROCEDURE. PT IS AWAKE AND ANSWERING QUESTIONS APPROPRIATELY; DENIES PAIN POST PROCEDURE. MONITOR AFIB/PACED 70'S, B/P 135/79, SPO2 90 % RA. R RADIAL SITE HAD MOD SIZED HEMATOMA POST TR BAND PLACEMENT; SECOND TR BAND PLACED PROXIMALLY, SITE CURRENTLY STABLE. PT'S RUE HAS POSITIVE PLEUTH WITH [address]
--- NOTE | 2024-08-22 14:30 | NUR ---
PROXIMAL TR BAND DELFATED AND REMOVED, GRADE 1 HEMATOMA REMAINS, BUT SOFT AND UNCHANGED.
[2024-08-22] MEDS ORDERED: Warfarin Sodium 3 MG Tab PO ONE (14:50)
--- NOTE | 2024-08-22 15:20 | NUR ---
TR BAND FULLY DELFATD, GRADE 1 HEMATOMA REMAINS, BUT SOFT AND STABLE-NO FURTHER SWELLING NOTED.
--- NOTE | 2024-08-22 16:05 | NUR ---
R ULNAR SITE REMAINS UNCHANGED POST TR BAND DEFLATION, GRADE 1 HEMATOMA TO RADIAL ATTEMPT REMAINS SOFT AND STABLE.
--- NOTE | 2024-08-22 16:20 | NUR ---
PT WAS DRESSED WITH ASSISTANCE, SITE UNCHANGED. TR BAND REMOVED, CLOTH DOT AND WRIST IMMOBILIZER PLACED; IV REMOVED-CANNULA INATCT. DISCUSSED SITE MANAGEMENT WITH PT AND CAREGIVER, VERBALIZED UNDERSTANDING.
--- NOTE | 2024-08-22 16:35 | NUR ---
PT AND CAREGIVER RECEIVED DISCHARGE INSTRUCTIONS, MED LIST AND AFTER CARE INSTRUCTIONS; VERBALIZED GOOD UNDERSTANDING. PT LEFT FACILITY VIA W/C, CONDITION STABLE.
== END 2024-08-22 16:56 | disposition home or self-care (01) ==
LOC: MHTC 10:09
DX: I48.91 Unspecified atrial fibrillation (principal); I25.10 Atherosclerotic heart disease of native coronary artery without angina pectoris; I49.5 Sick sinus syndrome; I35.0 Nonrheumatic aortic (valve) stenosis; I11.9 Hypertensive heart disease without heart failure; E11.9 Type 2 diabetes mellitus without complications; I42.2 Other hypertrophic cardiomyopathy; E03.9 Hypothyroidism, unspecified; E78.00 Pure hypercholesterolemia, unspecified; Z95.0 Presence of cardiac pacemaker; Z79.4 Long term (current) use of insulin; Z79.01 Long term (current) use of anticoagulants; Z79.890 Hormone replacement therapy; Z79.899 Other long term (current) drug therapy; Z88.5 Allergy status to narcotic agent; Z88.8 Allergy status to other drugs, medicaments and biological substances; Z90.49 Acquired absence of other specified parts of digestive tract
CPT/HCPCS: 76937; 93288; 93454; 99152; 99153; A9270; C1769; C1887; C1894; J1644; J2250; J3010; J7030; J7040; J7050; Q9967

== ENCOUNTER 2024-08-27 15:05 | Emergency (ER) | payer OTHER ==
[~2024-08-27] VITALS: Ht 165.1 cm; Wt 79.4 kg
[~2024-08-27 15:05] MED LIST changes: +Coumadin3 MG PO
[2024-08-27 15:47] VITALS: BP 146/64
[2024-08-27 16:26] LABS: BASOPHILS ABSOLUTE AUTO 0.02 K/mm3 (0.00-0.23); BASOPHILS PERCENT AUTO 0 % (0-2); EOSINOPHILS ABSOLUTE AUTO 0.18 K/mm3 (0.00-0.68); EOSINOPHILS PERCENT AUTO 2 % (0-6); Hematocrit 35.4 % (33.0-51.0); Hemoglobin 10.9 g/dL (11.5-16.0); IMMATURE GRAN ABSOLUTE AUTO 0.03 K/mm3 (0.00-0.10); IMMATURE GRAN PERCENT AUTO 0 % (0-1); LYMPHOCYTES ABSOLUTE AUTO 1.67 K/mm3 (0.84-5.20); LYMPHOCYTES PERCENT AUTO 19 % (21-46); MONOCYTES ABSOLUTE AUTO 0.47 K/mm3 (0.16-1.47); MONOCYTES PERCENT AUTO 5 % (4-13); Mean Corpuscular HGB 30.9 pg (26.0-34.0); Mean Corpuscular HGB Conc 30.8 g/dL (31.5-36.5); Mean Corpuscular Volume 100 fL (80-100); Mean Platelet Volume 10.4 fL (9.1-12.4); NEUTROPHILS ABSOLUTE AUTO 6.41 K/mm3 (1.96-9.15); NEUTROPHILS PERCENT AUTO 73 % (41-73); Platelet Count 164 K/mm3 (150-400); RDW Coefficient Variation 15.4 % (11.7-14.2); RDW Standard Deviation 55.9 fL (35.1-46.3); Red Blood Cell Count 3.53 M/mm3 (3.80-5.20); White Blood Cell Count 8.78 K/mm3 (4.00-11.30)
[2024-08-27 16:36] LABS: International Normalized Ratio 2.82; Prothrombin Time Results 27.9 Sec (9.7-11.5)
== END 2024-08-27 17:35 | disposition home or self-care (01) ==
LOC: ER 15:05
PROVIDERS: Emergency Medicine
DX: S51.831A Puncture wound without foreign body of right forearm, initial encounter (principal); E11.9 Type 2 diabetes mellitus without complications; G47.30 Sleep apnea, unspecified; I10 Essential (primary) hypertension; E03.9 Hypothyroidism, unspecified; X58.XXXA Exposure to other specified factors, initial encounter; Z88.5 Allergy status to narcotic agent; Z88.8 Allergy status to other drugs, medicaments and biological substances; Z79.4 Long term (current) use of insulin; Z79.02 Long term (current) use of antithrombotics/antiplatelets; Z79.899 Other long term (current) drug therapy
CPT/HCPCS: 85025; 85610; 99283